=== PATIENT | male | born 1955 | race Caucasian/White ===

== ENCOUNTER 2017-06-11 22:54 | Inpatient (IN) | payer SELFPAY ==
[2017-06-11] MEDS ORDERED: NORMAL SALINE 1000 ML 1,000 ML IV ONE (23:06)
[2017-06-11] MEDS ORDERED: METOCLOPRAMIDE HCL INJ/PF 10 MG/2 ML SDV IV ONE (23:07)
[2017-06-11] MEDS ORDERED: DIPHENHYDRAMINE HCL 50 MG/ML VIAL IV ONE (23:07)
--- NOTE | 2017-06-11 23:16 | ER Document Report ---
ED GI/ - General Stated Complaint: NAUSEA Time Seen by Provider: 06/11/17 22:59 Notes: Patient is a 61-year-old male comes emergency department for chief complaint of vomiting and chills. He states that he is also out of his Lantus for type 2 diabetes (been out for 2 weeks). He comes by EMS, he states he has vomited about 20 times. He is unsure if he vomited blood, he states he drank red Thierry- Aid and he is not sure if he threw up that or blood. He denies any particular area of abdominal pain, passing out, shortness of breath, chest pain. Past medical history of hypertension, CKD. He denies alcohol recently (reports a very infrequent use), denies smoking, denies recreational drugs. TRAVEL OUTSIDE OF THE [place] IN LAST 30 DAYS: No - Related Data Allergies/Adverse Reactions: acetaminophen [From Percocet] Allergy (Verified 06/12/17 01:00) oxycodone [From Percocet] Allergy (Verified 06/12/17 01:00) Past Medical History - General Information source: Patient - Social History Smoking Status: Never Smoker Frequency of alcohol use: None Drug Abuse: None Lives with: Family Family History: Reviewed & Not Pertinent Endocrine Medical History: Reports: Hx Diabetes Mellitus Type 2 - Immunizations Hx Diphtheria, Pertussis, Tetanus Vaccination: Yes Review of Systems - Review of Systems Constitutional: No symptoms reported EENT: No symptoms reported Cardiovascular: No symptoms reported Respiratory: No symptoms reported Gastrointestinal: See HPI Genitourinary: No symptoms reported Male Genitourinary: No symptoms reported Musculoskeletal: No symptoms reported Skin: No symptoms reported Hematologic/Lymphatic: No symptoms reported Neurological/Psychological: No symptoms reported Physical Exam - Vital signs Vitals: Resp Pulse Ox 26 H 98 06/11/17 23:17 06/11/17 23:17 - General General appearance: Other - Patient pale, sunken eyes, appears uncomfortable, mild tachypnea In distress: None - HEENT Head: Normocephalic, Atraumatic Eyes: Normal Extraocular movements intact: Yes Eyelashes: Normal Pupils: PERRL Sinus: Normal Nasal: Normal Mouth/Lips: Normal Mucous membranes: Dry Pharynx: Erythema. No: Exudate, Uvular edema, Potential airway comprom. Neck: Normal - Respiratory Respiratory status: Tachypnea. No: Respiratory distress, Labored Breath sounds: Normal. No: Decreased air movement, Wheezing - Cardiovascular Rhythm: Regular. No: Tachycardia Heart sounds: Normal auscultation, S1 appreciated, S2 appreciated Murmur: No Normal capillary refill: Yes - Abdominal Tenderness: Tender - Mild generalized tenderness - Back Back: Normal, Nontender. No: Tender - Extremities General upper extremity: Normal inspection, Nontender, Normal strength, Normal temperature General lower extremity: Normal inspection, Nontender, Normal strength, Normal temperature. No: Edema - Neurological Neuro grossly intact: Yes Cognition: Normal Orientation: AAOx4 [place] Coma Scale Eye Opening: Spontaneous Kathy Coma Scale Verbal: Oriented [place] Coma Scale Motor: Obeys Commands Kathy Coma Scale Total: 15 Speech: Normal Motor strength normal: LUE, RUE, LLE, RLE Sensory: Normal - Skin Skin Temperature: Warm Skin Moisture: Dry Skin Color: Pale Course - Re-evaluation Re-evalutation: Patient ill in appearance but he is not tachycardic or toxic in appearance. He has generalized abdominal tenderness, denies chest pain, denies shortness of breath. I asked what if she saw his vomit, she states she did, she states she does not think there was blood in it but it was reddish from the Thierry-Aid. I did perform a rectal examination and this was negative for blood and also negative on stool Hemoccult. CBC shows mild leukocytosis, nonspecific with vomiting. Chemistry shows low bicarbonate at 13, anion gap is significantly elevated at 28, blood glucose is 350. Venous blood gas borderline with a pH of 7.3, bicarbonate is again low. Urinalysis shows 80 ketones, elevated specific gravity. Patient states he still feels sick when I reevaluated him although he has not vomited again. Giving IV fluid rehydration. Discussed with Dr. De Paz because of elevated anion gap he does recommend IV insulin drip and admission to close the gap. 06/12/17 01:[address] Adams, will add troponin and EKG to evaluation. EKG with no T-wave inversions or ST segment changes in consecutive leads. Troponin is negative, patient will be admitted to telemetry full admission. Family and patient state understanding and agreement. - Vital Signs Vital signs: Temp Pulse Resp BP Pulse Ox 97.7 F 68 21 H 128/61 H 97 06/11/17 23:24 06/11/17 23:24 06/12/17 05:31 06/12/17 05:31 06/12/17 05:31 - Laboratory Result Diagrams: 06/11/17 23:15 06/11/17 23:15 Laboratory results interpreted by me: 06/11/17 06/11/17 06/11/17 23:03 23:15 23:15 WBC 13.2 H Seg Neutrophils % 85.7 H Lymphocytes % 10.4 L Monocytes % 2.7 L Absolute Neutrophils 11.3 H VBG pCO2 VBG HCO3 Sodium 134.3 L Chloride 93 L Carbon Dioxide 13 L Anion Gap 28 H Glucose 369 H POC Glucose 350 H Hemoglobin A1c % Calcium 10.6 H Urine Protein Urine Glucose (UA) Urine Ketones Urine Blood 06/11/17 06/12/17 06/12/17 23:15 00:50 00:50 WBC Seg Neutrophils % Lymphocytes % Monocytes % Absolute Neutrophils VBG pCO2 23.1 L VBG HCO3 11.1 L Sodium Chloride Carbon Dioxide Anion Gap Glucose POC Glucose Hemoglobin A1c % 12.8 H Calcium Urine Protein >=500 H Urine Glucose (UA) >=500 H Urine Ketones 80 H Urine Blood SMALL H 06/12/17 02:12 WBC Seg Neutrophils % Lymphocytes % Monocytes % Absolute Neutrophils VBG pCO2 VBG HCO3 Sodium Chloride Carbon Dioxide Anion Gap Glucose POC Glucose 297 H Hemoglobin A1c % Calcium Urine Protein Urine Glucose (UA) Urine Ketones Urine Blood Discharge - Discharge Clinical Impression: Hyperglycemia, Metabolic acidosis Vomiting Qualifiers: Vomiting type: unspecified Vomiting Intractability: non-intractable Nausea presence: with nausea Qualified Code(s): R11.2 - Nausea with vomiting, unspecified Condition: Stable Disposition: ADMITTED INPATIENT Admitting Provider: Hospitalist Unit Admitted: Telemetry
[2017-06-11 23:30] LABS: ABSOLUTE BASOPHILS # (AUTO) 0.1 10^3/uL (0.0-0.2); ABSOLUTE LYMPHOCYTES (AUTO) 1.4 10^3/uL (0.5-4.7); ABSOLUTE MONOCYTES (AUTO) 0.4 10^3/uL (0.1-1.4); ABSOLUTE NEUT (AUTO) 11.3 10^3/uL (1.7-8.2); EOSINOPHILS % (AUTO) 0.2 % (0-6); HEMATOCRIT 48.4 % (37.9-51.0); LYMPHOCYTES % (AUTO) 10.4 % (13-45); MEAN CORPUSCULAR HEMOGLOBIN 32.1 pg (27.0-33.4); MEAN CORPUSCULAR VOLUME 92 fl (80-97); MONOCYTES % (AUTO) 2.7 % (3-13); PLATELET COUNT 345 10^3/uL (150-450); RED BLOOD COUNT 5.27 10^6/uL (4.35-5.55); RED CELL DISTRIBUTION WIDTH 12.4 % (11.5-14.0); SEGMENTED NEUTROPHILS % (AUTO) 85.7 % (42-78); TOTAL CELLS COUNTED % (AUTO) 100 %; WHITE BLOOD COUNT 13.2 10^3/uL (4.0-10.5)
[2017-06-11 23:42] LABS: ALANINE AMINOTRANSFERASE 30 U/L (21-72); ALBUMIN 4.7 g/dL (3.5-5.0); ALKALINE PHOSPHATASE 102 U/L (38-126); ASPARTATE AMINO TRANSFERASE 18 U/L (17-59); BILIRUBIN,DIRECT 0.4 mg/dL (0.0-0.4); BILIRUBIN,TOTAL 0.8 mg/dL (0.2-1.3); BLOOD UREA NITROGEN 15 mg/dL (7-20); CALCIUM 10.6 mg/dL (8.4-10.2); CHLORIDE 93 mmol/L (98-107); GLUCOSE 369 mg/dL (75-110); LIPASE 85.2 U/L (23-300); POTASSIUM 4.3 mmol/L (3.6-5.0); TOTAL PROTEIN 7.4 g/dL (6.3-8.2)
[2017-06-11 23:48] LABS: ANION GAP 28 (5-19); CARBON DIOXIDE 13 mmol/L (22-30); SODIUM 134.3 mmol/L (137-145)
[2017-06-12] MEDS ORDERED: NORMAL SALINE 1000 ML 1,000 ML IV ONE (00:41)
[2017-06-12 01:09] LABS: VENOUS BLOOD HCO3 11.1 mmol/L (20-32); VENOUS BLOOD PCO2 23.1 mmHg (35-63); VENOUS BLOOD PH 7.3 (7.30-7.42)
[2017-06-12 01:13] LABS: APPEARANCE,URINE CLEAR; BILIRUBIN,URINE NEGATIVE (NEGATIVE); COLOR,URINE STRAW; GLUCOSE, URINE >=500 mg/dL (NEGATIVE); KETONES,URINE 80 mg/dL (NEGATIVE); LEUKOCYTE ESTERASE,URINE NEGATIVE (NEGATIVE); NITRITE,URINE NEGATIVE (NEGATIVE); PROTEIN,URINE >=500 mg/dL (NEGATIVE); URINE SPECIFIC GRAVITY 1.023; UROBILINOGEN,URINE NEGATIVE mg/dL (<2.0)
[2017-06-12] MEDS ORDERED: NORMAL SALINE 100 ML with INSULIN REGULAR, HUMAN 100 UNIT IV PRN ×2 (01:20)
[2017-06-12] MEDS ORDERED: GLUCAGON,HUMAN RECOMB 1 MG INJ IM PRN ×2 (01:35→13:14)
[2017-06-12] MEDS ORDERED: DEXTROSE 40% GEL 15 GM TUBE PO PRN ×4 (01:35→13:14)
[2017-06-12] MEDS ORDERED: DEXTROSE 50%-WATER 25 GM/50 ML DISP.SYRIN IV PRN ×4 (01:35→13:14)
[2017-06-12] MEDS ORDERED: IPRATROPIUM/ALBUTEROL 0.5-2.5 MG/3 ML AMPUL NEB PRN (01:35)
[2017-06-12] MEDS ORDERED: MAGNESIUM HYDROXIDE SUSP 30 ML UDCUP PO PRN (01:35)
[2017-06-12] MEDS ORDERED: INSULIN REG, HUMAN 100 UNIT/ML 3 ML VIAL (PYX) ONE (02:06)
[2017-06-12] MEDS ORDERED: LORAZEPAM INJ 2 MG/1 ML VIAL ONE (02:07)
[2017-06-12] MEDS ORDERED: LORAZEPAM INJ 2 MG/1 ML VIAL IV ONE (02:08)
[2017-06-12 02:16] LABS: URINE AMPHETAMINES SCREEN NEGATIVE; URINE BARBITURATES SCREEN NEGATIVE; URINE BENZODIAZEPINES SCREEN NEGATIVE; URINE COCAINE SCREEN NEGATIVE; URINE MARIJUANA (THC) SCREEN NEGATIVE; URINE METHADONE SCREEN NEGATIVE; URINE PHENCYCLIDINE SCREEN NEGATIVE
[2017-06-12] MEDS: POTASSI CL 20 MEQ/D5-1/2NS 1L 1,000 ML IV PRN ×2 (02:28→11:22)
--- NOTE | 2017-06-12 02:43 | PDOC H&P ---
History of Present Illness Admission Date/PCP: 06/12/17 02:19 Patient complains of: Abdominal pain nausea vomiting History of Present Illness: KIARRA DELONG SR is a 61 year old male with a past medical history of diabetes, hypertension and dyslipidemia. Patient presents with 2 days of abdominal pain nausea polyuria polydipsia and uncontrolled blood sugar. Patient has been out of insulin for 2 weeks secondary to lack of funds. In the emergency room he is found to have severe metabolic acidosis, he is started on insulin, IV fluids and referred to the hospitalist for admission. Patient denies chest pain palpitations or diaphoresis. Past Medical History Cardiac Medical History: Reports: Hypertension Pulmonary Medical History: Reports: None EENT Medical History: Reports: None Neurological Medical History: Reports: None Endocrine Medical History: Reports: Diabetes Mellitus Type 1 Renal/ Medical History: Reports: None Malignancy Medical History: Reports: None GI Medical History: Reports: None Musculoskeltal Medical History: Reports: Arthritis Skin Medical History: Reports: None Psychiatric Medical History: Reports: None Traumatic Medical History: Reports: None Hematology: Reports: None Infectious Medical History: Reports: None Past Surgical History Past Surgical History: Reports: None Social History Information Source: Patient Lives with: Spouse/Significant other Smoking Status: Current Every Day Smoker Frequency of Alcohol Use: None Drugs: None - Advance Directive Resuscitation Status: Full Code Family History Family History: DM, Hypertension Parental Family History Reviewed: Yes Children Family History Reviewed: Yes Sibling(s) Family History Reviewed.: Yes Medication/Allergy Allergies/Adverse Reactions: acetaminophen [From Percocet] Allergy (Verified 06/12/17 01:00) oxycodone [From Percocet] Allergy (Verified 06/12/17 01:00) Review of Systems Constitutional: PRESENT: as per HPI, anorexia, fatigue, weakness, weight loss Eyes: ABSENT: visual disturbances Ears: ABSENT: hearing changes Cardiovascular: ABSENT: chest pain, dyspnea on exertion, edema, orthropnea, palpitations Respiratory: ABSENT: cough, hemoptysis Gastrointestinal: PRESENT: heartburn, nausea, vomiting. ABSENT: abdominal pain , constipation, diarrhea, hematemesis, hematochezia Genitourinary: PRESENT: other - Polyuria Musculoskeletal: ABSENT: joint swelling Integumentary: ABSENT: rash, wounds Neurological: ABSENT: abnormal gait, abnormal speech, confusion, dizziness, focal weakness, syncope Psychiatric: ABSENT: anxiety, depression, homidical ideation, suicidal ideation Endocrine: PRESENT: as per HPI, polydipsia, polyphagia, polyuria. ABSENT: cold intolerance, flushing, heat intolerance, menstrual abnormalities Hematologic/Lymphatic: ABSENT: easy bleeding, easy bruising Physical Exam Vital Signs: Temp Pulse Resp BP Pulse Ox 97.7 F 68 23 H 172/78 H 99 06/11/17 23:24 06/11/17 23:24 06/12/17 01:31 06/12/17 01:31 06/12/17 01:31 General appearance: PRESENT: cooperative, disheveled, severe distress, thin Head exam: PRESENT: atraumatic, normocephalic Eye exam: PRESENT: conjunctiva pink, EOMI, PERRLA. ABSENT: scleral icterus Ear exam: PRESENT: normal external ear exam Mouth exam: PRESENT: dry mucosa, neck supple. ABSENT: laceration, moist Neck exam: ABSENT: carotid bruit, JVD, lymphadenopathy, thyromegaly Respiratory exam: PRESENT: accessory muscle use, clear to auscultation matthew, tachypnea. ABSENT: rales, rhonchi, wheezes Cardiovascular exam: PRESENT: tachycardia. ABSENT: diastolic murmur, rubs, systolic murmur Pulses: PRESENT: normal dorsalis pedis pul Vascular exam: PRESENT: normal capillary refill GI/Abdominal exam: PRESENT: normal bowel sounds, soft. ABSENT: distended, guarding, mass, organolmegaly, rebound, tenderness Rectal exam: PRESENT: deferred Extremities exam: PRESENT: full ROM. ABSENT: calf tenderness, clubbing, pedal edema Neurological exam: PRESENT: alert, awake, oriented to person, oriented to place , oriented to time, oriented to situation, CN II-XII grossly intact. ABSENT: motor sensory deficit Psychiatric exam: PRESENT: appropriate affect, normal mood. ABSENT: homicidal ideation, suicidal ideation Skin exam: PRESENT: dry, intact, warm. ABSENT: cyanosis, rash Assessment & Plan - Diagnosis (1) Diabetic ketoacidosis Is this a current diagnosis for this admission?: Yes Plan: Diabetic ketoacidosis patient has had some degree of polyuria polydipsia with nausea and uncontrolled hyperglycemia with supporting labs. Patient will receive IV fluids IV insulin serial chemistries every 6 hours for evaluation for electrolyte repletion. Continued evaluation for underlying cause if not found Patient will require diabetic education and consideration of mental health evaluation. (2) Nausea and vomiting Is this a current diagnosis for this admission?: Yes Plan: Symptomatic management and correction #1 - Time Time Spent: 50 to 70 Minutes - Inpatient Certification Medical Necessity: Need Close Monitoring Due to Risk of Patient Decompensation
[2017-06-12] MEDS: HEPARIN SOD (PORCINE) 5,000 UNIT/ML 1 ML SYRINGE SUBCUT SCH ×3 (05:47→22:27)
--- NOTE | 2017-06-12 08:07 | EKG REPORT ---
SEVERITY:- BORDERLINE ECG - SINUS RHYTHM BORDERLINE RIGHT AXIS DEVIATION BORDERLINE PROLONGED QT INTERVAL : Confirmed by: Rio Glasgow MD 12-Jun-2017 08:06:58
[2017-06-12 08:51] LABS: HEMATOCRIT 45.9 % (37.9-51.0); HEMOGLOBIN 15.9 g/dL (13.5-17.0); MEAN CORPUSCULAR HEMOGLOBIN 31.5 pg (27.0-33.4); MEAN CORPUSCULAR HGB CONC 34.5 g/dL (32.0-36.0); MEAN CORPUSCULAR VOLUME 91 fl (80-97); PLATELET COUNT 327 10^3/uL (150-450); RED BLOOD COUNT 5.03 10^6/uL (4.35-5.55); RED CELL DISTRIBUTION WIDTH 12.8 % (11.5-14.0); WHITE BLOOD COUNT 16.1 10^3/uL (4.0-10.5)
[2017-06-12 09:10] LABS: ALBUMIN 3.7 g/dL (3.5-5.0); ANION GAP 15 (5-19); BLOOD UREA NITROGEN 12 mg/dL (7-20); CALCIUM 9.2 mg/dL (8.4-10.2); CARBON DIOXIDE 14 mmol/L (22-30); CHLORIDE 110 mmol/L (98-107); GLUCOSE 148 mg/dL (75-110); PHOSPHORUS 2.3 mg/dL (2.5-4.5); POTASSIUM 4.6 mmol/L (3.6-5.0); SODIUM 139.3 mmol/L (137-145)
[2017-06-12] MEDS: DOCUSATE SODIUM 100 MG CAPSULE PO SCH ×2 (10:54→18:58)
[2017-06-12] MEDS ORDERED: ONDANSETRON HCL INJ/PF 4 MG/2 ML SDV IV ONE (12:40)
[2017-06-12] MEDS ORDERED: INSULIN GLARGINE,HUM.REC.ANLOG 1,000 UNIT/10 ML UNIT SUBCUT ONE (13:00)
[2017-06-12 13:17] LABS: ANION GAP 19 (5-19); BLOOD UREA NITROGEN 13 mg/dL (7-20); CALCIUM 9.4 mg/dL (8.4-10.2); CARBON DIOXIDE 16 mmol/L (22-30); CHLORIDE 105 mmol/L (98-107); GLUCOSE 175 mg/dL (75-110); POTASSIUM 4.6 mmol/L (3.6-5.0); SODIUM 139.9 mmol/L (137-145)
[2017-06-12] MEDS: INSULIN LISPRO 100 UNIT/ML 3 ML VIAL SUBCUT PRN ×2 (13:49→19:26)
[2017-06-12 19:08] LABS: ANION GAP 18 (5-19); BLOOD UREA NITROGEN 14 mg/dL (7-20); CALCIUM 9.6 mg/dL (8.4-10.2); CARBON DIOXIDE 16 mmol/L (22-30); CHLORIDE 106 mmol/L (98-107); GLUCOSE 213 mg/dL (75-110); POTASSIUM 5.2 mmol/L (3.6-5.0); SODIUM 139.5 mmol/L (137-145)
[2017-06-12] MEDS: ONDANSETRON HCL INJ/PF 4 MG/2 ML SDV IV PRN (19:26)
[2017-06-12] MEDS ORDERED: INSULIN GLARGINE,HUM.REC.ANLOG 1,000 UNIT/10 ML UNIT SUBCUT SCH (22:00)
--- NOTE | 2017-06-12 23:08 | PDOC PROGRESS REPORT ---
Subjective Progress Note for:: 06/12/17 Subjective:: 61 year old male with a past medical history of diabetes, hypertension and dyslipidemia. Patient presents with 2 days of abdominal pain nausea polyuria polydipsia and uncontrolled blood sugar. He described running out of insulin 2 weeks ago. Patient was placed on an insulin drip protocol. The insulin drip was discontinued in the ED, and subq lantus was given. Patient was placed on a sliding scale and admitted. His Anion gap will be monitored, but was close to resolving. Patient was nauseated and vomited just prior to admission. Reason For Visit: DKA, HTN, NAUSEA VOMITING Physical Exam Vital Signs: Temp Pulse Resp BP Pulse Ox 98.6 F 93 16 127/70 H 100 06/12/17 20:54 06/12/17 20:54 06/12/17 20:54 06/12/17 20:54 06/12/17 20:54 Intake & Output 06/11/17 06/12/17 06/13/17 06:59 06:59 06:59 Intake Total 3000 1000 Output Total 1600 450 Balance 1400 550 General appearance: PRESENT: mild distress, thin Head exam: PRESENT: atraumatic, normocephalic Eye exam: PRESENT: EOMI, PERRLA Ear exam: PRESENT: normal external ear exam Mouth exam: PRESENT: moist, neck supple, tongue midline Neck exam: ABSENT: carotid bruit, tenderness, thyromegaly Respiratory exam: ABSENT: accessory muscle use, crackles, rales, rhonchi, unlabored, wheezes Cardiovascular exam: PRESENT: RRR, +S1, +S2. ABSENT: diastolic murmur, systolic murmur Pulses: PRESENT: normal radial pulses, normal dorsalis pedis pul Vascular exam: PRESENT: normal capillary refill. ABSENT: pallor GI/Abdominal exam: PRESENT: normal bowel sounds. ABSENT: diminished bowel sounds, guarding Extremities exam: ABSENT: joint swelling, pedal edema Musculoskeletal exam: ABSENT: ambulatory, full ROM, normal inspection Neurological exam: PRESENT: alert, oriented to person, oriented to place, oriented to time, CN II-XII grossly intact Psychiatric exam: ABSENT: agitated, anxious, manic Focused psych exam: ABSENT: paranoid, pressured speech Skin exam: PRESENT: dry. ABSENT: abrasion, mottled, pallor Results Laboratory Results: 03/16/18 08:38 06/12/17 18:12 06/12/17 06/12/17 06/12/17 06:42 08:38 08:38 WBC 16.1 H RBC 5.03 Hgb 15.9 Hct 45.9 MCV 91 MCH 31.5 MCHC 34.5 RDW 12.8 Plt Count 327 Sodium Cancelled 139.3 Potassium Cancelled 4.6 Chloride Cancelled 110 H Carbon Dioxide Cancelled 14 L Anion Gap Cancelled 15 BUN Cancelled 12 Creatinine Cancelled 0.51 L Est GFR ( Amer) Cancelled > 60 Est GFR (Non-Af Amer) Cancelled > 60 Glucose Cancelled 148 H Calcium Cancelled 9.2 Phosphorus 2.3 L Albumin 3.7 06/12/17 06/12/17 12:00 18:12 WBC RBC Hgb Hct MCV MCH MCHC RDW Plt Count Sodium 139.9 139.5 Potassium 4.6 5.2 H Chloride 105 106 Carbon Dioxide 16 L 16 L Anion Gap 19 18 BUN 13 14 Creatinine 0.56 0.70 Est GFR ( Amer) > 60 > 60 Est GFR (Non-Af Amer) > 60 > 60 Glucose 175 H 213 H Calcium 9.4 9.6 Phosphorus Albumin Assessment & Plan - Plan Summary Plan Summary: 1. DKA anion gap nearly closed. patient transitioned from IV insulin to subq insulin on Lantus plus q6h SSI. consider a cheaper alternative at discharge such as 70/30 insulin. 2. Nausea and vomiting. secondary to problem number 1 iv zofran prn advance his diet as tolerates 3. DVT prophylaxis. SCDs
[2017-06-13 01:01] LABS: ANION GAP 17 (5-19); BLOOD UREA NITROGEN 13 mg/dL (7-20); CALCIUM 9.8 mg/dL (8.4-10.2); CARBON DIOXIDE 17 mmol/L (22-30); CHLORIDE 106 mmol/L (98-107); GLUCOSE 165 mg/dL (75-110); POTASSIUM 5.2 mmol/L (3.6-5.0); SODIUM 140.1 mmol/L (137-145)
[2017-06-13] MEDS: ONDANSETRON HCL INJ/PF 4 MG/2 ML SDV IV PRN ×3 (03:21→21:31)
[2017-06-13 05:27] LABS: ABSOLUTE BASOPHILS # (AUTO) 0.2 10^3/uL (0.0-0.2); ABSOLUTE LYMPHOCYTES (AUTO) 2.3 10^3/uL (0.5-4.7); ABSOLUTE MONOCYTES (AUTO) 0.7 10^3/uL (0.1-1.4); ABSOLUTE NEUT (AUTO) 10.9 10^3/uL (1.7-8.2); BASOPHILS % (AUTO) 1.1 % (0-2); EOSINOPHILS % (AUTO) 0.2 % (0-6); HEMATOCRIT 42.7 % (37.9-51.0); HEMOGLOBIN 14.7 g/dL (13.5-17.0); LYMPHOCYTES % (AUTO) 16.2 % (13-45); MEAN CORPUSCULAR HEMOGLOBIN 31.9 pg (27.0-33.4); MEAN CORPUSCULAR HGB CONC 34.5 g/dL (32.0-36.0); MEAN CORPUSCULAR VOLUME 92 fl (80-97); MONOCYTES % (AUTO) 4.7 % (3-13); PLATELET COUNT 290 10^3/uL (150-450); RED BLOOD COUNT 4.62 10^6/uL (4.35-5.55); RED CELL DISTRIBUTION WIDTH 12.7 % (11.5-14.0); SEGMENTED NEUTROPHILS % (AUTO) 77.8 % (42-78); TOTAL CELLS COUNTED % (AUTO) 100 %
[2017-06-13 05:47] LABS: ALBUMIN 3.5 g/dL (3.5-5.0); ANION GAP 17 (5-19); BLOOD UREA NITROGEN 14 mg/dL (7-20); CALCIUM 9.2 mg/dL (8.4-10.2); CARBON DIOXIDE 14 mmol/L (22-30); CHLORIDE 107 mmol/L (98-107); GLUCOSE 214 mg/dL (75-110); PHOSPHORUS 2.4 mg/dL (2.5-4.5); SODIUM 138.4 mmol/L (137-145)
[2017-06-13] MEDS: HEPARIN SOD (PORCINE) 5,000 UNIT/ML 1 ML SYRINGE SUBCUT SCH ×3 (06:09→21:31)
[2017-06-13 06:16] LABS: POTASSIUM 4.2 mmol/L (3.6-5.0)
[2017-06-13] MEDS: INSULIN LISPRO 100 UNIT/ML 3 ML VIAL SUBCUT PRN ×3 (07:57→21:37)
[2017-06-13] MEDS: RINGERS SOLUTION,LACTATED 1,000 ML IV PRN ×2 (08:03→18:34)
[2017-06-13] MEDS: DOCUSATE SODIUM 100 MG CAPSULE PO SCH ×2 (09:52→18:34)
--- NOTE | 2017-06-13 11:09 | PROGRESS NOTE E ---
Progress Note NAME: KIARRA DELONG : 1955 AGE: 61Y DATE: 06/13/2017 ROOM: 317 SUBJECTIVE: The patient is a pleasant 61-year-old male with past medical history of diabetes, hypertension, dyslipidemia. The patient presented with 2 days of abdominal pain, polyuria, polydipsia and uncontrolled blood sugar. He was found to have DKA and started on insulin drip, which I will continue. Now he is better controlled. The patient complains of abdominal pain. There is no vomiting. OBJECTIVE: VITAL SIGNS: Blood pressure 166/67,temperature 98.2, heart rate 77, saturation 99%. HEENT: Head normocephalic, atraumatic. Pupils round, reactive to light and accommodation bilaterally. Extraocular movements intact. Ears: Tympanic membranes intact bilaterally. No discharge from the ears. No discharge from the nose. NECK: Supple. No increased JVD. No thyromegaly. No lymphadenopathy. CARDIOVASCULAR: Normal S1, S2. Regular rate and rhythm. No murmur. RESPIRATORY: Lungs clear. ABDOMEN: Soft and nontender. MUSCULOSKELETAL: No edema. NEUROLOGIC: Awake, alert. SKIN: No rash. LABORATORY: Sodium 138, potassium 4.2, chloride 107. White blood count 14, hemoglobin 14. ASSESSMENT: 1. DIABETIC KETOACIDOSIS, RESOLVED. Continue Lantus and regular insulin sliding scale. 2. NAUSEA AND VOMITING, improved. 3. DEHYDRATION, resolved. 4. DIABETES MELLITUS, poorly controlled. PLAN: Continue monitoring his blood sugar. Continue Lantus, as well as sliding scale. DISPOSITION: Discharge home tomorrow morning. DICTATING PHYSICIAN: JEREMY GRACE M.D. [id number] PHY#: [id number] ID: [id number] JOB#: [id number] ACCT: [id number] cc: > [facility]
[2017-06-13 12:16] LABS: ANION GAP 15 (5-19); BLOOD UREA NITROGEN 13 mg/dL (7-20); CALCIUM 9.3 mg/dL (8.4-10.2); CARBON DIOXIDE 17 mmol/L (22-30); CHLORIDE 106 mmol/L (98-107); GLUCOSE 162 mg/dL (75-110); POTASSIUM 4.2 mmol/L (3.6-5.0); SODIUM 137.8 mmol/L (137-145)
[2017-06-13] MEDS: MAG HYDROX/AL HYDROX/SIMETH SUSP 30 ML UDCUP PO PRN (18:34)
[2017-06-13] MEDS ORDERED: HYDRALAZINE HCL INJ/PF 20 MG/1 ML SDV IV PRN (20:38)
[2017-06-13] MEDS ORDERED: INSULIN GLARGINE,HUM.REC.ANLOG 300 UNIT/3 ML INSULN.PEN SUBCUT SCH (22:00)
[2017-06-13] MEDS: GABAPENTIN 300 MG CAPSULE PO SCH (22:02)
[2017-06-13] MEDS ORDERED: ASPIRIN 325 MG TABLET ONE (22:57)
[2017-06-13] MEDS ORDERED: LORAZEPAM INJ 2 MG/1 ML VIAL ONE (22:58)
[2017-06-13] MEDS ORDERED: FENTANYL CITRATE INJ/PF 100 MCG/2 ML AMPUL ONE (22:59)
[2017-06-13] MEDS ORDERED: NITROGLYCERIN 0.4 MG/TAB 25 TAB/BOTTLE ONE (23:00)
[2017-06-13] MEDS ORDERED: METOPROLOL TARTRATE PF/INJ 5 MG/5 ML SDV IV ONE ×2 (23:11→23:30)
[2017-06-13] MEDS ORDERED: PHOSPHORUS #1 250 MG TABLET PO ONE (23:30)
[2017-06-13] MEDS ORDERED: ENOXAPARIN SODIUM INJ 80 MG/0.8 ML DISP.SYRIN SUBCUT ONE ×2 (23:30→23:45)
[2017-06-13] MEDS ORDERED: NITROGLYCERIN 0.4 MG/TAB 25 TAB/BOTTLE SL PRN (23:35)
--- NOTE | 2017-06-13 23:54 | EKG REPORT ---
SEVERITY:- ABNORMAL ECG - SINUS RHYTHM PROBABLE ANTEROSEPTAL INFARCT, AGE INDETERM : Confirmed by: Rio Glasgow MD 13-Jun-2017 23:53:24
[2017-06-13 23:58] LABS: CREATINE KINASE MB 0.41 ng/mL (<4.55)
[2017-06-13 23:59] LABS: TROPONIN I < 0.012 ng/mL
[2017-06-14 00:49] LABS: BLOOD UREA NITROGEN 11 mg/dL (7-20); GLUCOSE 192 mg/dL (75-110); POTASSIUM 3.5 mmol/L (3.6-5.0)
[2017-06-14] MEDS ORDERED: METOPROLOL TARTRATE PF/INJ 5 MG/5 ML SDV IV PRN (00:55)
[2017-06-14 00:57] LABS: CHLORIDE 103 mmol/L (98-107)
[2017-06-14 00:58] LABS: CARBON DIOXIDE 14 mmol/L (22-30); SODIUM 139.9 mmol/L (137-145)
[2017-06-14 01:16] LABS: ANION GAP 23 (5-19)
[2017-06-14] MEDS ORDERED: INSULIN REG, HUMAN 100 UNIT/ML 3 ML VIAL (PYX) ONE (01:58)
[2017-06-14] MEDS ORDERED: POTASSI CL 20 MEQ/1/2NS 1L 20 MEQ/1,000 ML RTUINJ IV ONE (02:00)
[2017-06-14] MEDS ORDERED: INSULIN REG, HUMAN 100 UNIT/ML 3 ML VIAL (PYX) IV ONE (02:00)
[2017-06-14] MEDS: POTASSI CL 20 MEQ/50 ML RIDER 20 MEQ/50 ML RTUPB IV SCH ×2 (02:19→03:47)
[2017-06-14] MEDS ORDERED: POTASSI CL 20 MEQ/D5-1/2NS 1L 1,000 ML IV ONE ×2 (03:31→04:00)
[2017-06-14] MEDS ORDERED: INSULIN, REGULAR 100 UNIT/100 ML NORMAL SALINE IV PRN ×2 (03:56)
[2017-06-14] MEDS: GABAPENTIN 300 MG CAPSULE PO SCH ×3 (05:32→21:08)
[2017-06-14 05:55] LABS: ABSOLUTE BASOPHILS # (AUTO) 0.1 10^3/uL (0.0-0.2); ABSOLUTE EOSINOPHILS # (AUTO) 0.1 10^3/uL (0.0-0.6); ABSOLUTE LYMPHOCYTES (AUTO) 2.9 10^3/uL (0.5-4.7); ABSOLUTE MONOCYTES (AUTO) 0.6 10^3/uL (0.1-1.4); ABSOLUTE NEUT (AUTO) 6.6 10^3/uL (1.7-8.2); EOSINOPHILS % (AUTO) 0.7 % (0-6); HEMATOCRIT 39.4 % (37.9-51.0); HEMOGLOBIN 13.7 g/dL (13.5-17.0); LYMPHOCYTES % (AUTO) 28.4 % (13-45); MEAN CORPUSCULAR HEMOGLOBIN 31.8 pg (27.0-33.4); MEAN CORPUSCULAR HGB CONC 34.7 g/dL (32.0-36.0); MEAN CORPUSCULAR VOLUME 92 fl (80-97); MONOCYTES % (AUTO) 5.4 % (3-13); PLATELET COUNT 274 10^3/uL (150-450); RED CELL DISTRIBUTION WIDTH 12.7 % (11.5-14.0); SEGMENTED NEUTROPHILS % (AUTO) 64.5 % (42-78); TOTAL CELLS COUNTED % (AUTO) 100 %; WHITE BLOOD COUNT 10.3 10^3/uL (4.0-10.5)
[2017-06-14] MEDS: MAG HYDROX/AL HYDROX/SIMETH SUSP 30 ML UDCUP PO PRN ×3 (06:35→20:56)
[2017-06-14] MEDS: ONDANSETRON HCL INJ/PF 4 MG/2 ML SDV IV PRN ×2 (06:36→18:08)
[2017-06-14 06:42] LABS: CREATINE KINASE MB 0.25 ng/mL (<4.55)
[2017-06-14 06:44] LABS: TROPONIN I < 0.012 ng/mL
[2017-06-14 06:46] LABS: ANION GAP 10 (5-19); BLOOD UREA NITROGEN 12 mg/dL (7-20); CALCIUM 8.5 mg/dL (8.4-10.2); CARBON DIOXIDE 20 mmol/L (22-30); CHLORIDE 109 mmol/L (98-107); GLUCOSE 126 mg/dL (75-110); POTASSIUM 3.8 mmol/L (3.6-5.0); SODIUM 139.2 mmol/L (137-145)
[2017-06-14 06:47] LABS: ALBUMIN 3.1 g/dL (3.5-5.0); CREATINE KINASE 25 U/L (55-170); PHOSPHORUS 2.4 mg/dL (2.5-4.5)
--- NOTE | 2017-06-14 08:50 | EKG REPORT ---
SEVERITY:- ABNORMAL ECG - SINUS RHYTHM POSSIBLE ATRIAL ARRHYTHMIA, A-RATE 194 SUPRAVENTRICULAR BIGEMINY PROBABLE ANTEROSEPTAL INFARCT, AGE INDETERM : Confirmed by: Rio Glasgow MD 14-Jun-2017 08:50:26
[2017-06-14] MEDS ORDERED: LISINOPRIL 5 MG TABLET PO SCH (10:00)
[2017-06-14] MEDS ORDERED: ENOXAPARIN SODIUM INJ 80 MG/0.8 ML DISP.SYRIN SUBCUT SCH (10:00)
[2017-06-14] MEDS: DOCUSATE SODIUM 100 MG CAPSULE PO SCH ×2 (10:22→18:08)
[2017-06-14 11:54] LABS: TROPONIN I < 0.012 ng/mL
--- NOTE | 2017-06-14 12:44 | PROGRESS NOTE E ---
Progress Note NAME: KIARRA DELONG : 1955 AGE: 61Y DATE: 06/14/2017 ROOM: 317 SUBJECTIVE: The patient is a pleasant 61-year-old male who has a past medical history of diabetes mellitus, admitted with DKA, hypertension, dyslipidemia. His DKA is resolving and he was on insulin drip, which I will discontinue. However, yesterday, he was back to insulin drip because bicarb had dropped to 14, but today, it went up to 20 and his blood sugar is relatively running in 130-200, and dextrose was discontinued as well as, also, insulin drip was discontinued. Now, he is on Lantus and high-dose sliding scale and he is feeling much better and eating and drinking without any nausea or vomiting. OBJECTIVE: GENERAL: The patient is lying in bed, comfortable, not in distress. VITAL SIGNS: Heart rate 81, blood pressure 164/62, saturation is 103. HEENT: Head normocephalic, atraumatic. Pupils round, reactive to light and accommodation bilaterally. Extraocular movements intact. Ears: Tympanic membranes intact bilaterally. No discharge from the ears. No discharge from the nose. NECK: Supple. No increased JVD. No thyromegaly. No lymphadenopathy. CARDIOVASCULAR: Normal S1, S2. Regular rate and rhythm. No murmur. No gallops. RESPIRATORY: Lungs clear. ABDOMEN: Soft and nontender. MUSCULOSKELETAL: No edema. NEUROLOGIC: Awake, alert. SKIN: No rash. DIAGNOSTIC DATA: Labs: Sodium 139, potassium 3.5, chloride 103, carbon dioxide is 20, blood sugar is running between 120-200. Urinalysis was unremarkable. ASSESSMENT: 1. DKA, RESOLVED. 2. DEHYDRATION, WHICH CONTRIBUTED TO DKA, RESOLVED. 3. POORLY-CONTROLLED DIABETES MELLITUS. 4. NAUSEA AND VOMITING, RESOLVED. PLAN: We will increase his Lantus. He is taking Lantus 30 units at bedtime. I will increase it to 35 units, and we are putting him also on high dose of sliding scale. Increase his Lisinopril from 5 mg to 10 mg daily for better control of his blood pressure. I will also add amlodipine 5 mg p.o. daily and monitor his blood pressure. DISPOSITION: Discharge home tomorrow if stable. DICTATING PHYSICIAN: JEREMY GRACE M.D. [id number] PHY#: [id number] ID: [id number] JOB#: [id number] ACCT: [id number] cc: >
[2017-06-14] MEDS: INSULIN LISPRO 100 UNIT/ML 3 ML VIAL SUBCUT PRN ×3 (12:49→21:53)
[2017-06-14] MEDS ORDERED: ASPIRIN 81 MG TABLET, CHEWABLE PO ONE (17:30)
[2017-06-14 17:48] LABS: URINE CREATININE 153.1 mg/dL (22-328)
[2017-06-14 18:00] LABS: UR PRO/CREAT RATIO RESULT 1.9 mg/mg (0.0-0.2); URINE PROTEIN 296.2 mg/dL (<12)
[2017-06-14 18:20] LABS: INTERNATIONAL RATION (INR) 0.87; PROTHROMBIN TIME 12.5 SEC (11.4-15.4)
[2017-06-14 18:23] LABS: CREATINE KINASE 26 U/L (55-170)
[2017-06-14 18:35] LABS: CREATINE KINASE MB 0.27 ng/mL (<4.55)
[2017-06-14 18:36] LABS: TROPONIN I < 0.012 ng/mL
[2017-06-14 18:42] LABS: HEMOGLOBIN 15.1 g/dL (13.5-17.0); MEAN CORPUSCULAR HEMOGLOBIN 31.7 pg (27.0-33.4); MEAN CORPUSCULAR HGB CONC 34.3 g/dL (32.0-36.0); MEAN CORPUSCULAR VOLUME 93 fl (80-97); PLATELET COUNT 274 10^3/uL (150-450); RED BLOOD COUNT 4.75 10^6/uL (4.35-5.55); RED CELL DISTRIBUTION WIDTH 12.6 % (11.5-14.0); WHITE BLOOD COUNT 9.3 10^3/uL (4.0-10.5)
[2017-06-14] MEDS: METOPROLOL TARTRATE 25 MG TABLET PO SCH (21:08)
[2017-06-14] MEDS: ATORVASTATIN CALCIUM 20 MG TABLET PO SCH (21:09)
[2017-06-14] MEDS: ASPIRIN 81 MG TABLET, CHEWABLE PO SCH (21:09)
[2017-06-14] MEDS: INSULIN GLARGINE,HUM.REC.ANLOG 300 UNIT/3 ML INSULN.PEN SUBCUT SCH (21:53)
[2017-06-15 00:41] LABS: CREATINE KINASE MB < 0.22 ng/mL (<4.55); TROPONIN I < 0.012 ng/mL
[2017-06-15] MEDS: ONDANSETRON HCL INJ/PF 4 MG/2 ML SDV IV PRN (03:47)
[2017-06-15 04:21] LABS: BILIRUBIN,URINE NEGATIVE (NEGATIVE); COLOR,URINE YELLOW; GLUCOSE, URINE >=500 mg/dL (NEGATIVE); KETONES,URINE 80 mg/dL (NEGATIVE); LEUKOCYTE ESTERASE,URINE NEGATIVE (NEGATIVE); NITRITE,URINE NEGATIVE (NEGATIVE); PROTEIN,URINE >=500 mg/dL (NEGATIVE); URINE SPECIFIC GRAVITY 1.028; UROBILINOGEN,URINE NEGATIVE mg/dL (<2.0)
[2017-06-15 04:24] LABS: APPEARANCE,URINE CLEAR
[2017-06-15 05:32] LABS: HEMATOCRIT 43.2 % (37.9-51.0); MEAN CORPUSCULAR HEMOGLOBIN 32.1 pg (27.0-33.4); MEAN CORPUSCULAR HGB CONC 34.8 g/dL (32.0-36.0); MEAN CORPUSCULAR VOLUME 92 fl (80-97); PLATELET COUNT 265 10^3/uL (150-450); RED BLOOD COUNT 4.68 10^6/uL (4.35-5.55); RED CELL DISTRIBUTION WIDTH 12.7 % (11.5-14.0)
[2017-06-15 05:50] LABS: ALBUMIN 3.3 g/dL (3.5-5.0); ANION GAP 11 (5-19); BLOOD UREA NITROGEN 10 mg/dL (7-20); CALCIUM 8.9 mg/dL (8.4-10.2); CARBON DIOXIDE 27 mmol/L (22-30); CHLORIDE 100 mmol/L (98-107); CREATINE KINASE 24 U/L (55-170); GLUCOSE 128 mg/dL (75-110); PHOSPHORUS 2.5 mg/dL (2.5-4.5); POTASSIUM 3.4 mmol/L (3.6-5.0); SODIUM 137.6 mmol/L (137-145)
[2017-06-15 05:57] LABS: CREATINE KINASE MB < 0.22 ng/mL (<4.55)
[2017-06-15 05:58] LABS: TROPONIN I < 0.012 ng/mL
[2017-06-15] MEDS: MAG HYDROX/AL HYDROX/SIMETH SUSP 30 ML UDCUP PO PRN (07:32)
[2017-06-15] MEDS: GABAPENTIN 300 MG CAPSULE PO SCH ×3 (07:32→21:14)
[2017-06-15] MEDS: AMLODIPINE BESYLATE 5 MG TABLET PO SCH (09:21)
[2017-06-15] MEDS: DOCUSATE SODIUM 100 MG CAPSULE PO SCH ×2 (09:21→17:07)
[2017-06-15] MEDS: LISINOPRIL 5 MG TABLET PO SCH (09:21)
[2017-06-15] MEDS: METOPROLOL TARTRATE 25 MG TABLET PO SCH ×2 (09:22→21:14)
[2017-06-15] MEDS: ENOXAPARIN SODIUM INJ 40 MG/0.4 ML DISP.SYRIN SUBCUT SCH (09:22)
[2017-06-15] MEDS: INSULIN LISPRO 100 UNIT/ML 3 ML VIAL SUBCUT PRN ×3 (12:29→21:34)
--- NOTE | 2017-06-15 16:18 | PDOC PROGRESS REPORT ---
Subjective Progress Note for:: 06/15/17 Subjective:: KIARRA DELONG is a 61-year-old male admitted with DKA. Past medical history includes diabetes, hypertension and dyslipidemia. Transitioned from insulin drip to Lantus and sliding scale insulin 06/14/2017. Blood glucose has been well controlled for 24+ hrs. According to nursing staff, on 06/13/2017 the patient experienced an episode of midsternal chest pain. EKG showed T-wave inversion in septal leads, and new supraventricular bigeminy. Cardiology was consulted today. Echocardiogram ordered. Stress test to be completed tomorrow. Patient seen this morning on rounds. Complains of headache, but denies chest pain or shortness of breath. Patient expresses concerns about his ability to afford his insulin once he is discharged from the hospital. Reason For Visit: DKA, HTN, NAUSEA VOMITING Physical Exam Vital Signs: Temp Pulse Resp BP Pulse Ox 98.9 F 73 18 148/61 H 99 06/15/17 11:48 06/15/17 14:00 06/15/17 11:48 06/15/17 11:48 06/15/17 11:48 Intake & Output 06/14/17 06/15/17 06/16/17 06:59 06:59 06:59 Intake Total 1646 1470 Output Total 400 600 Balance 1246 870 Weight 84.3 kg 83.6 kg General appearance: PRESENT: no acute distress Head exam: PRESENT: atraumatic Eye exam: PRESENT: conjunctiva pink Mouth exam: PRESENT: moist Teeth exam: PRESENT: poor dentation Neck exam: PRESENT: full ROM Respiratory exam: PRESENT: clear to auscultation matthew, symmetrical, unlabored Cardiovascular exam: PRESENT: irregular rhythm, +S1, +S2 Pulses: PRESENT: normal radial pulses, normal dorsalis pedis pul GI/Abdominal exam: PRESENT: normal bowel sounds, soft Rectal exam: PRESENT: deferred Extremities exam: PRESENT: full ROM Musculoskeletal exam: PRESENT: full ROM Neurological exam: PRESENT: alert, awake, oriented to person, oriented to place , oriented to time, oriented to situation Psychiatric exam: PRESENT: appropriate affect Results Laboratory Results: 06/15/17 04:55 06/15/17 04:55 06/14/17 06/14/17 06/14/17 17:52 17:52 18:33 WBC Cancelled 9.3 RBC Cancelled 4.75 Hgb Cancelled 15.1 Hct Cancelled 44.0 MCV Cancelled 93 MCH Cancelled 31.7 MCHC Cancelled 34.3 RDW Cancelled 12.6 Plt Count Cancelled 274 Sodium Potassium Chloride Carbon Dioxide Anion Gap BUN Creatinine 0.55 Est GFR ( Amer) > 60 Est GFR (Non-Af Amer) > 60 Glucose Calcium Phosphorus Magnesium Albumin Urine Color Urine Appearance Urine pH Ur Specific [place] Urine Protein Urine Glucose (UA) Urine Ketones Urine Blood Urine Nitrite Ur Leukocyte Esterase Urine WBC (Auto) Urine RBC (Auto) 06/15/17 06/15/17 06/15/17 03:40 04:55 04:55 WBC 8.0 RBC 4.68 Hgb 15.0 Hct 43.2 MCV 92 MCH 32.1 MCHC 34.8 RDW 12.7 Plt Count 265 Sodium 137.6 Potassium 3.4 L Chloride 100 Carbon Dioxide 27 Anion Gap 11 BUN 10 Creatinine 0.55 Est GFR ( Amer) > 60 Est GFR (Non-Af Amer) > 60 Glucose 128 H Calcium 8.9 Phosphorus 2.5 Magnesium 2.0 Albumin 3.3 L Urine Color YELLOW Urine Appearance CLEAR Urine pH 6.0 Ur Specific [place] 1.028 Urine Protein >=500 H Urine Glucose (UA) >=500 H Urine Ketones 80 H Urine Blood NEGATIVE Urine Nitrite NEGATIVE Ur Leukocyte Esterase NEGATIVE Urine WBC (Auto) 1 Urine RBC (Auto) 1 06/13/17 06/13/17 06/14/17 23:17 23:17 04:51 Creatine Kinase 36 L 25 L CK-MB (CK-2) 0.41 Troponin I < 0.012 06/14/17 06/14/17 06/14/17 04:51 11:02 11:02 Creatine Kinase 26 L CK-MB (CK-2) 0.25 0.30 Troponin I < 0.012 < 0.012 06/14/17 06/14/17 06/14/17 17:52 17:52 23:51 Creatine Kinase 26 L 23 L CK-MB (CK-2) 0.27 Troponin I < 0.012 06/14/17 06/15/17 06/15/17 23:51 04:55 04:55 Creatine Kinase 24 L CK-MB (CK-2) < 0.22 < 0.22 Troponin I < 0.012 < 0.012 Status: Imported from PACS Assessment & Plan - Diagnosis (1) Diabetic ketoacidosis Qualifiers: Diabetes mellitus type: type 2 Diabetes mellitus complication detail: without coma Qualified Code(s): E11.10 - Type 2 diabetes mellitus with ketoacidosis without coma Is this a current diagnosis for this admission?: Yes Plan: Resolved. Anion gap closed. Patient currently on Lantus 35u daily and high- dose sliding scale insulin. Blood glucose has been fairly well controlled for the last 24 hours. Patient states that he was noncompliant with his insulin because he cannot afford to pay out of pocket. He previously was covered under Medicaid but for some unknown reason was dropped from his coverage. Patient reports that he will often take less Lantus than needed in order to stretch out the amount of insulin he has available. Appreciate discharge planning recommendations to assist with getting home Lantus and Humalog. (2) Chest pain Qualifiers: Chest pain type: unspecified Qualified Code(s): R07.9 - Chest pain, unspecified Is this a current diagnosis for this admission?: Yes Plan: On June 13 the patient experienced an episode of midsternal chest pain. EKG showed inverted T waves in the septal leads, no evidence of acute infarction. New supraventricular bigeminy, patient noted to still be in this rhythm this morning. serial cardiac enzymes all negative. Cardiology was consulted today. Echocardiogram ordered. Stress test to be completed tomorrow. (3) Nausea and vomiting Qualifiers: Vomiting type: unspecified Vomiting Intractability: non-intractable Qualified Code(s): R11.2 - Nausea with vomiting, unspecified Is this a current diagnosis for this admission?: Yes Plan: Resolved. Patient able to tolerate p.o. diet and take his p.o. medications. Continue Zofran PRN - Time Time Spent with patient: 15-24 minutes Medications reviewed and adjusted accordingly: Yes Anticipated discharge: Home - Inpatient Certification Based on my medical assessment, after consideration of the patient's comorbidities, presenting symptoms, or acuity I expect that the services needed warrant INPATIENT care.: Yes I certify that my determination is in accordance with my understanding of Medicare's requirements for reasonable and necessary INPATIENT services [42 CFR 412.3e].: Yes Medical Necessity: Risk of Complication if Not Cared For in Hospital - Plan Summary Plan Summary: Plan to discharge home
[2017-06-15] MEDS: IBUPROFEN 600 MG TABLET PO PRN (17:07)
--- NOTE | 2017-06-15 19:17 | XCELERA REPORT ---
[address] [address] Transthoracic Echocardiogram Report Name: NISHI DELONGEnrique Irizarry Age: 61 yrs Gender: Male : 1955 Patient Status: Inpatient Patient Location: [address] [place], [place] [address] Study Date: 06/15/2017 02:54 PM Height: 72 in Weight: 184 lb BSA: 2.1 m2 Procedure: A complete two-dimensional transthoracic echocardiogram was performed (2D, M-mode, spectral and color flow Doppler). The study was technically adequate with some images being suboptimal in quality. Reason For Study: chest pain. new ekg changes Ordering Physician: GELY PITTS Performed By: Ashli Alicea Interpretation Summary The left ventricular ejection fraction is normal. There is borderline concentric left ventricular hypertrophy. The left ventricle is grossly normal size. Doppler measurements suggest pseudonormalized left ventricular relaxation, which is associated with grade II/IV or mild to moderate diastolic dysfunction Wall motion cannot be accurately commented on, but no definite regional wall motion abnormalities noted. The right ventricle is mildly dilated. The right atrium is normal. The left atrial size is normal. There is a mild amount of mitral regurgitation There is no mitral valve stenosis. There is no aortic valve stenosis No aortic regurgitation is present. There is a trace or physiologic amount of tricuspid regurgitation Tricuspid regurgitation jet envelope not well defined to measure RV systolic pressure accurately. The aortic root is not well visualized but is probably normal size. The inferior vena cava appeared normal and decreased > 50% with respiration (RAP 5-10 mmHg) There is no pericardial effusion. MMode/2D Measurements & Calculations RVDd: 3.2 cm LVIDd: 4.6 cm FS: 48.2 % Ao root diam: 3.2 cm IVSd: 0.91 cm LVIDs: 2.4 cm EDV(Teich): 98.4 ml LVPWd: 0.96 cm ESV(Teich): 20.0 ml Ao root area: 8.0 cm2 EF(Teich): 79.7 % LA dimension: 3.3 cm Doppler Measurements & Calculations MV E max wilmer: MV P1/2t max wilmer: Ao V2 max: LV V1 max P.8 cm/sec 89.8 cm/sec 133.6 cm/sec 5.9 mmHg MV A max wilmer: MV P1/2t: 98.1 msec Ao max PG: LV V1 max: 126.4 cm/sec 7.1 mmHg 121.4 cm/sec MV E/A: 0.71 MVA(P1/2t): 2.2 cm2 MV dec slope: 268.3 cm/sec2 MV dec time: 0.34 sec PA V2 max: PI end-d wilmer: TR max wilmer: 93.3 cm/sec 104.8 cm/sec 232.4 cm/sec PA max PG: TR max P.5 mmHg 21.6 mmHg Left Ventricle The left ventricle is grossly normal size. There is borderline concentric left ventricular hypertrophy. The left ventricular ejection fraction is normal. Doppler measurements suggest pseudonormalized left ventricular relaxation, which is associated with grade II/IV or mild to moderate diastolic dysfunction. Wall motion cannot be accurately commented on, but no definite regional wall motion abnormalities noted. Right Ventricle The right ventricle is mildly dilated. There is normal right ventricular wall thickness. The right ventricular systolic function is normal. Atria The right atrium is normal. The left atrial size is normal. Interarterial septum not well visualized and not well dopplered. Cannot comment on ASD/PFO presence. Mitral Valve The mitral valve leaflets are sclerotic, but show no functional abnormalities. There is no mitral valve stenosis. There is a mild amount of mitral regurgitation. Aortic Valve The aortic valve is mildly calcified. The aortic valve is trileaflet. There is no aortic valve stenosis. No aortic regurgitation is present. Tricuspid Valve The tricuspid valve is not well visualized, but is grossly normal. There is no tricuspid stenosis. There is a trace or physiologic amount of tricuspid regurgitation. Tricuspid regurgitation jet envelope not well defined to measure RV systolic pressure accurately. Pulmonic Valve The pulmonic valve is not well visualized. Great Vessels The aortic root is not well visualized but is probably normal size. The inferior vena cava appeared normal and decreased > 50% with respiration (RAP 5-10 mmHg). Effusions There is no pericardial effusion. : GELY PITTS > Ute Tyson
[2017-06-15] MEDS: ASPIRIN 81 MG TABLET, CHEWABLE PO SCH (21:13)
[2017-06-15] MEDS: ATORVASTATIN CALCIUM 20 MG TABLET PO SCH (21:14)
[2017-06-15] MEDS: INSULIN GLARGINE,HUM.REC.ANLOG 300 UNIT/3 ML INSULN.PEN SUBCUT SCH (21:35)
[2017-06-16] MEDS: ONDANSETRON HCL INJ/PF 4 MG/2 ML SDV IV PRN (03:41)
[2017-06-16 05:04] LABS: APPEARANCE,URINE CLEAR; BILIRUBIN,URINE NEGATIVE (NEGATIVE); COLOR,URINE YELLOW; GLUCOSE, URINE >=500 mg/dL (NEGATIVE); KETONES,URINE 80 mg/dL (NEGATIVE); LEUKOCYTE ESTERASE,URINE NEGATIVE (NEGATIVE); NITRITE,URINE NEGATIVE (NEGATIVE); PROTEIN,URINE >=500 mg/dL (NEGATIVE); URINE SPECIFIC GRAVITY 1.029; UROBILINOGEN,URINE NEGATIVE mg/dL (<2.0)
[2017-06-16] MEDS: GABAPENTIN 300 MG CAPSULE PO SCH ×2 (05:16→13:07)
[2017-06-16 09:11] LABS: ANION GAP 9 (5-19); BLOOD UREA NITROGEN 11 mg/dL (7-20); CALCIUM 8.7 mg/dL (8.4-10.2); CARBON DIOXIDE 32 mmol/L (22-30); CHLORIDE 97 mmol/L (98-107); GLUCOSE 132 mg/dL (75-110); PHOSPHORUS 2.7 mg/dL (2.5-4.5); SODIUM 137.6 mmol/L (137-145)
[2017-06-16] MEDS ORDERED: POTASSI CL 20 MEQ/50 ML RIDER 20 MEQ/50 ML RTUPB IV ONE (09:21)
[2017-06-16] MEDS ORDERED: POTASSIUM CHLORIDE 10 MEQ TABLET.SA PO ONE (09:22)
--- NOTE | 2017-06-16 09:33 | EKG REPORT ---
SEVERITY:- OTHERWISE NORMAL ECG - SINUS RHYTHM VENTRICULAR PREMATURE COMPLEX BORDERLINE RIGHT AXIS DEVIATION : Confirmed by: Ute Tyson 16-Jun-2017 09:32:19
[2017-06-16] MEDS: METOPROLOL TARTRATE 25 MG TABLET PO SCH (10:55)
[2017-06-16] MEDS: ENOXAPARIN SODIUM INJ 40 MG/0.4 ML DISP.SYRIN SUBCUT SCH (10:55)
[2017-06-16] MEDS: DOCUSATE SODIUM 100 MG CAPSULE PO SCH ×2 (10:55→17:35)
[2017-06-16] MEDS: AMLODIPINE BESYLATE 5 MG TABLET PO SCH (10:55)
[2017-06-16] MEDS: LISINOPRIL 5 MG TABLET PO SCH (10:56)
[2017-06-16] MEDS: INSULIN LISPRO 100 UNIT/ML 3 ML VIAL SUBCUT PRN (12:30)
--- NOTE | 2017-06-16 12:36 | DRAGON STRESS TEST REPORT ---
INTRAVENOUS LEXISCAN CARDIOLITE STRESS TEST USING SINGLE PHOTON EMMISION COMPUTERIZED TOMOGRAPHIC. DATE OF PROCEDURE: June 16, 2017, INDICATION : Chest pain CARDIAC RISK FACTORS: Diabetes, hypertension, dyslipidemia, family history of premature CAD RESTING EKG: Sinus rhythm, no baseline ST-T wave changes noted STRESS EKG: No significant ST segment changes noted with LexiScan bolus REASON FOR TERMINATION: Protocol. PROCEDURE REPORT: Baseline heart rate 73 beats per minute with blood pressure of 132/70. Patient had no significant complaints. Patient was bolused with Lexiscan 0.4 mg intravenously followed by saline bolus. Heart rate at 2 minutes post bolus 95 with a blood pressure of 120/60. 3 minutes post bolus heart rate 89 with blood pressure of 126/62. No significant EKG changes were noted. Patient had no significant complaints during the procedure or postprocedure. Patient injected with Aminophyllin 75 mg at 3 minutes or later after Lexiscan bolus. CONCLUSIONS: Normal EKG and hemodynamic response to IV LexiScan. NUCLEAR DATA: At rest the patient was given 12.91 millicuries of technetium 99 sestamibi injected intravenously. As per protocol rest gated SPECT images were obtained. On day of stress test, the patient was given intravenous LexiScan at a dose of 0.4 mg in 5 mL intravenously, followed by flush with normal saline. Subsequently the stress dose of 32.7 millicuries of technetium 99 sestamibi was injected intravenously. As per protocol stress gated images were obtained. NUCLEAR INTERPRETATION: Both raw and processed data were used for interpretation. Visual, qualitative, computer-generated quantitative data was used. There was good myocardial uptake of technetium compound. Motion artifact and soft tissue attenuations were noted. Increased visceral uptake was noted. No definitive areas of transient perfusion defect noted, No definitive areas of fixed perfusion defect or scars noted. EKG gated imaging showed LV EF at 62 %, rest and stress gated EF similar visually. T. I D. ratio was 0.76. Lung heart ratio noted to be within normal limits 0.31. No significant extracardiac and abnormal radiotracer activities were noted. RV free wall uptake was noted to be WNL. IMPRESSION: Also refer to comments under nuclear interpretation. Also test results needs to be interpreted in the context of pretest probability. 1. No definitive areas of transient perfusion defect noted. 2. There is no definitive scintigraphic evidence of myocardial infarction/scar. 3. EKG gated imaging shows left ventricular ejection fraction of approx. 62 %. 4. Clinical correlation requested as occasionally single vessel disease or balanced ischemia could be missed. In approximately 10% of the cases Lexiscan may not cause adequate vasodilatory stress. RECOMMENDATIONS: Aggressive risk factor modification and medical management. Further evaluation may be needed if continued symptoms or other high risk indicators are noted on clinical evaluation. Close cardiology follow-up is also recommended. Clinical correlation with echocardiogram derived ejection fraction. Inability to exercise by itself can lead to increased cardiovascular event risks. Consider cardiology consultation and or follow-up if clinically indicated. 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 MIKAYLA
[2017-06-16] MEDS: IBUPROFEN 600 MG TABLET PO PRN (13:08)
[2017-06-16] MEDS ORDERED: REGADENOSON INJ 0.4 MG/5 ML DISP.SYRIN IV ONE (14:33)
[2017-06-16] MEDS ORDERED: AMINOPHYLLINE INJ/PF 250 MG/10 ML SDV IV ONE (14:33)
[2017-06-16 18:23] VITALS: BP 144/73
--- NOTE | 2017-06-16 20:14 | PDOC CONSULTATION ---
Consultation Consult Date: 06/15/17 Attending physician:: AC HINOJOSA Consult reason:: CP History of Present Illness Admission Date/PCP: 06/12/17 02:19 Patient complains of: Chest pain History of Present Illness: KIARRA DELONG SR is a 61 year old male with a past medical history of diabetes, hypertension and dyslipidemia. Patient presents with 2 days of abdominal pain nausea polyuria polydipsia and uncontrolled blood sugar. Patient has been out of insulin for 2 weeks secondary to lack of funds. In the emergency room he is found to have severe metabolic acidosis, he is started on insulin, IV fluids and referred to the hospitalist for admission. Patient denies chest pain palpitations or diaphoresis. However had CP on thursday needing NTG. I was asked to evaluate patient because of chest pain. On questioning, patient denied any recurrence of chest pain. He claims to be doing reasonably well. Patient was scheduled for stress test. Past Medical History Cardiac Medical History: Reports: Hypertension Pulmonary Medical History: Reports: None EENT Medical History: Reports: None Neurological Medical History: Reports: None Endocrine Medical History: Reports: Diabetes Mellitus Type 1, Diabetes Mellitus Type 2 Renal/ Medical History: Reports: None Malignancy Medical History: Reports: None GI Medical History: Reports: None Musculoskeltal Medical History: Reports: Arthritis Skin Medical History: Reports: None Psychiatric Medical History: Reports: None Traumatic Medical History: Reports: None Hematology: Reports: None Infectious Medical History: Reports: None Past Surgical History Past Surgical History: Reports: None Social History Information Source: Patient Lives with: Family Smoking Status: Never Smoker Frequency of Alcohol Use: Occasional Drugs: None - Advance Directive Resuscitation Status: Full Code Family History Family History: Hypertension Parental Family History Reviewed: Yes Children Family History Reviewed: Yes Sibling(s) Family History Reviewed.: Yes Medication/Allergy Home Medications: Gabapentin [Neurontin 300 mg Capsule] 300 mg PO Q8 06/12/17 Lovastatin [Mevacor] 20 mg PO DAILY 06/12/17 Nortriptyline HCl [Pamelor] 50 mg PO QHS 06/12/17 Amlodipine Besylate [Norvasc 5 mg Tablet] 5 mg PO DAILY #30 tablet 06/16/17 Atorvastatin Calcium [Lipitor 20 mg Tablet] 20 mg PO QHS #30 tablet 06/16/17 Insulin Lispro [Admelog Solostar] 100 unit SQ ACHS #1 insuln.pen 03/20/18 Lisinopril [Prinivil 5 mg Tablet] 10 mg PO DAILY #30 tablet 06/16/17 Metoprolol Tartrate [Lopressor 25 mg Tablet] 12.5 mg PO Q12 #60 tablet 06/16/17 Allergies/Adverse Reactions: acetaminophen [From Percocet] Allergy (Verified 06/12/17 01:00) oxycodone [From Percocet] Allergy (Verified 06/12/17 01:00) Review of Systems Review of Systems: Please see history of present illness and past medical history as wall. Constitutional: No fever or chills reported. Head : No recent chronic headaches, recent head injury. Eyes: No recent eye pain, diplopia, redness, discharge, acute visual changes. Ears: No recent chronic ear pain, acute hearing loss, ear discharge. Oral cavity: No recent ulcerations, bleeding, oral cavity discomfort. Neck: No recent acute neck pain reported. Hematologic: No recent easy bruising or bleeding or hematologic malignancy reported. Lymphatic: No recent lymphatic malignancy, chronic lymphadenopathy reported yet Cardiovascular system review: See history of present illness. Respiratory system review: No recent chronic cough, hemoptysis, blood clots in the lungs reported. Mild Shortness of breath on exertion Gastrointestinal system review: Presents with abdominal pain, denies hematemesis , melena, recent change in bowel habits. Genitourinary system review: No recent acute or chronic hematuria, flank pain, UTI etc. reported. Skin system review: Negative for any recent abnormal bruising, no rash, no pruritus reported. Neurologic: No prior history of strokes, mini strokes, seizure disorder. Psychologic: No history of major psychosis or major depression reported. Musculoskeletal: Minor aches and pains reported. No acute joint swelling reported. Endocrine: No recent polyuria, polydipsia, recent heat or cold intolerance. Physical Exam Vital Signs: Temp Pulse Resp BP Pulse Ox 97.6 F 67 18 144/73 H 99 06/15/17 07:47 06/15/17 07:47 06/15/17 07:47 06/15/17 09:12 06/15/17 07:47 Intake & Output 06/14/17 06/15/17 06/16/17 06:59 06:59 06:59 Intake Total 1646 1470 Output Total 400 600 Balance 1246 870 Weight 84.3 kg 83.6 kg Exam: GENERAL: well-nourished and in no acute distress. Alert and oriented x3 HEAD: Atraumatic, normocephalic. EYES: Pupils equal round and reactive to light, extraocular movements intact, sclera anicteric, conjunctiva are normal. ENT: TMs normal, nares patent, oropharynx clear without exudates. Moist mucous membranes. No oral ulcerations or bleeding gums noted NECK: supple without lymphadenopathy. Trachea is central. No cervical or axillary lymphadenopathy noted. Carotids are 2+, JVD WNL LUNGS: Respiration seems nonlabored, no significant accessory muscle action noted. Breath sounds clear to auscultation bilaterally and equal noted. No wheezes rales or rhonchi noted. No significant dullness noted on percussion. CHEST: Palpation of the chest wall shows no significant chest wall tenderness. No other significant abnormalities noted. 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 ABDOMEN: Soft, no significant tenderness appreciated, normoactive bowel sounds. No guarding, no rebound. No rigidity noted . No masses appreciated. EXTREMITIES: Pedal pulses are 1-2+, no calf tenderness noted. No clubbing or cyanosis.trace to 1+ pedal edema noted NEUROLOGICAL: Focused neurological exam showed no significant neurologic deficit. Normal speech, no focal weakness appreciated. PSYCH: Normal mood, normal affect. Judgment and insight within normal limits. SKIN: No significant ecchymosis, skin is noted to be warm. MUSCULOSKELETAL EXAM: No significant acute joint swelling noted. Results Laboratory Results: 06/15/17 04:55 06/15/17 04:55 06/14/17 06/14/17 06/14/17 17:52 17:52 18:33 WBC Cancelled 9.3 RBC Cancelled 4.75 Hgb Cancelled 15.1 Hct Cancelled 44.0 MCV Cancelled 93 MCH Cancelled 31.7 MCHC Cancelled 34.3 RDW Cancelled 12.6 Plt Count Cancelled 274 Sodium Potassium Chloride Carbon Dioxide Anion Gap BUN Creatinine 0.55 Est GFR ( Amer) > 60 Est GFR (Non-Af Amer) > 60 Glucose Calcium Phosphorus Magnesium Albumin Urine Color Urine Appearance Urine pH Ur Specific [place] Urine Protein Urine Glucose (UA) Urine Ketones Urine Blood Urine Nitrite Ur Leukocyte Esterase Urine WBC (Auto) Urine RBC (Auto) 06/15/17 06/15/17 06/15/17 03:40 04:55 04:55 WBC 8.0 RBC 4.68 Hgb 15.0 Hct 43.2 MCV 92 MCH 32.1 MCHC 34.8 RDW 12.7 Plt Count 265 Sodium 137.6 Potassium 3.4 L Chloride 100 Carbon Dioxide 27 Anion Gap 11 BUN 10 Creatinine 0.55 Est GFR ( Amer) > 60 Est GFR (Non-Af Amer) > 60 Glucose 128 H Calcium 8.9 Phosphorus 2.5 Magnesium 2.0 Albumin 3.3 L Urine Color YELLOW Urine Appearance CLEAR Urine pH 6.0 Ur Specific [place] 1.028 Urine Protein >=500 H Urine Glucose (UA) >=500 H Urine Ketones 80 H Urine Blood NEGATIVE Urine Nitrite NEGATIVE Ur Leukocyte Esterase NEGATIVE Urine WBC (Auto) 1 Urine RBC (Auto) 1 06/13/17 06/13/17 06/14/17 23:17 23:17 04:51 Creatine Kinase 36 L 25 L CK-MB (CK-2) 0.41 Troponin I < 0.012 06/14/17 06/14/17 06/14/17 04:51 11:02 11:02 Creatine Kinase 26 L CK-MB (CK-2) 0.25 0.30 Troponin I < 0.012 < 0.012 06/14/17 06/14/17 06/14/17 17:52 17:52 23:51 Creatine Kinase 26 L 23 L CK-MB (CK-2) 0.27 Troponin I < 0.012 06/14/17 06/15/17 06/15/17 23:51 04:55 04:55 Creatine Kinase 24 L CK-MB (CK-2) < 0.22 < 0.22 Troponin I < 0.012 < 0.012 EKG Comments: Sinus rhythm, no acute ST-T wave changes are noted. Assessment & Plan - Diagnosis (1) Chest pain Qualifiers: Chest pain type: unspecified Qualified Code(s): R07.9 - Chest pain, unspecified Is this a current diagnosis for this admission?: Yes (2) Diabetic ketoacidosis Qualifiers: Diabetes mellitus type: type 2 Diabetes mellitus complication detail: without coma Qualified Code(s): E11.10 - Type 2 diabetes mellitus with ketoacidosis without coma Is this a current diagnosis for this admission?: Yes (3) Hyperglycemia Is this a current diagnosis for this admission?: Yes (4) Metabolic acidosis Is this a current diagnosis for this admission?: Yes (5) Nausea and vomiting Qualifiers: Vomiting type: unspecified Vomiting Intractability: non-intractable Qualified Code(s): R11.2 - Nausea with vomiting, unspecified Is this a current diagnosis for this admission?: Yes - Notes Notes: Patient was admitted with chest pain and diabetic ketoacidosis was diagnosed. Subsequently over the weekend he had some chest discomfort. Because of his cardiac risk factors, I was consulted. Patient was scheduled for a stress test. Patient currently chest pain-free. At this point will recommend aspirin therapy, statins, beta-tito etc. Further plans after stress test is completed. We will also recommend obtaining a 2D echocardiogram. As regards other diagnoses listed, currently stable and improved. Patient to report any recurrence of chest pain. - Time Time Spent: 30 to 50 Minutes - CODE STATUS was discussed, patient remains full code. Multiple medical problems were addressed. More than 50% of the time spent coordinating care, discussing management plans with involved caregivers. Management plans discussed with involved personnels. Medical decision making was of moderate complexity, patient's has multiple comorbidities. Medications reviewed and adjusted accordingly: Yes
--- NOTE | 2017-06-16 20:17 | PDOC PROGRESS REPORT ---
Subjective Progress Note for:: 06/16/17 Subjective:: Patient seems to be doing better with gradual improvement. Pt is denying any chest arm or neck discomfort. Patient denying any PND, orthopnea. Patient denied any sustained palpitations, dizziness, syncope, near syncope. Patient denying any fever chills. Patient denying any other significant discomfort. Patient is maintaining sinus rhythm. Review of systems: Rest review of systems negative. Medications: Medications have been reviewed. Reason For Visit: DKA, HTN, NAUSEA VOMITING Physical Exam Vital Signs: Temp Pulse Resp BP Pulse Ox 98.7 F 72 18 104/56 L 96 06/16/17 07:48 06/16/17 07:48 06/16/17 07:48 06/16/17 07:48 06/16/17 07:48 Intake & Output 06/15/17 06/16/17 06/17/17 06:59 06:59 06:59 Intake Total 1470 1484 Output Total 600 200 Balance 870 1284 Weight 83.6 kg 82.7 kg Exam: GENERAL: well-nourished and in no acute distress. Alert and oriented x3 HEAD: Atraumatic, normocephalic. EYES: Pupils equal round and reactive to light, extraocular movements intact, sclera anicteric, conjunctiva are normal. ENT: TMs normal, nares patent, oropharynx clear without exudates. Moist mucous membranes. No oral ulcerations or bleeding gums noted NECK: supple without lymphadenopathy. Trachea is central. No cervical or axillary lymphadenopathy noted. Carotids are 2+, JVD WNL LUNGS: Respiration seems nonlabored, no significant accessory muscle action noted. Breath sounds clear to auscultation bilaterally and equal noted. No wheezes rales or rhonchi noted. No significant dullness noted on percussion. CHEST: Palpation of the chest wall shows no significant chest wall tenderness. No other significant abnormalities noted. HEART: [place] GARBAGE PERSON, No PSH, 1/6 TORI aortic area, 1/6 cordon systolic murmur mitral area, no rubs, no gallops. ABDOMEN: Soft, no significant tenderness appreciated, normoactive bowel sounds. No guarding, no rebound. No rigidity noted . No masses appreciated. EXTREMITIES: Pedal pulses are 1-2+, no calf tenderness noted. No clubbing or cyanosis. Negative pedal edema noted NEUROLOGICAL: Focused neurological exam showed no significant neurologic deficit. Normal speech, no focal weakness appreciated. PSYCH: Normal mood, normal affect. Judgment and insight within normal limits. SKIN: No significant ecchymosis, skin is noted to be warm. MUSCULOSKELETAL EXAM: No significant acute joint swelling noted. Results Laboratory Results: 06/15/17 04:55 06/16/17 08:33 06/16/17 06/16/17 04:50 08:33 Sodium 137.6 Potassium 3.0 L* Chloride 97 L Carbon Dioxide 32 H Anion Gap 9 BUN 11 Creatinine 0.54 Est GFR ( Amer) > 60 Est GFR (Non-Af Amer) > 60 Glucose 132 H Calcium 8.7 Phosphorus 2.7 Magnesium 2.0 Urine Color YELLOW Urine Appearance CLEAR Urine pH 6.0 Ur Specific Sandy 1.029 Urine Protein >=500 H Urine Glucose (UA) >=500 H Urine Ketones 80 H Urine Blood NEGATIVE Urine Nitrite NEGATIVE Ur Leukocyte Esterase NEGATIVE Urine WBC (Auto) 1 Urine RBC (Auto) 1 06/13/17 06/13/17 06/14/17 23:17 23:17 04:51 Creatine Kinase 36 L 25 L CK-MB (CK-2) 0.41 Troponin I < 0.012 06/14/17 06/14/17 06/14/17 04:51 11:02 11:02 Creatine Kinase 26 L CK-MB (CK-2) 0.25 0.30 Troponin I < 0.012 < 0.012 06/14/17 06/14/17 06/14/17 17:52 17:52 23:51 Creatine Kinase 26 L 23 L CK-MB (CK-2) 0.27 Troponin I < 0.012 06/14/17 06/15/17 06/15/17 23:51 04:55 04:55 Creatine Kinase 24 L CK-MB (CK-2) < 0.22 < 0.22 Troponin I < 0.012 < 0.012 EKG Comments: Sinus rhythm no acute ST-T wave changes noted Assessment & Plan - Diagnosis (1) Chest pain Qualifiers: Chest pain type: unspecified Qualified Code(s): R07.9 - Chest pain, unspecified Is this a current diagnosis for this admission?: Yes (2) Diabetic ketoacidosis Qualifiers: Diabetes mellitus type: type 2 Diabetes mellitus complication detail: without coma Qualified Code(s): E11.10 - Type 2 diabetes mellitus with ketoacidosis without coma Is this a current diagnosis for this admission?: Yes (3) Hyperglycemia Is this a current diagnosis for this admission?: Yes (4) Metabolic acidosis Is this a current diagnosis for this admission?: Yes (5) Nausea and vomiting Qualifiers: Vomiting type: unspecified Vomiting Intractability: non-intractable Qualified Code(s): R11.2 - Nausea with vomiting, unspecified Is this a current diagnosis for this admission?: Yes (6) Vomiting Qualifiers: Vomiting type: unspecified Vomiting Intractability: non-intractable Nausea presence: with nausea Qualified Code(s): R11.2 - Nausea with vomiting, unspecified - Notes Notes: 2D echocardiogram results were discussed. 2D echocardiogram was obtained yesterday. This morning nuclear stress test procedure was discussed. Risk benefits discussed. Patient underwent nuclear stress test without any complications. No significant ischemia was noted. In the afternoon results of nuclear stress test discussed. Chest pain: Patient claims chest pain is resolved. This was evaluated with a nuclear stress test. Nuclear stress test was negative for any significant areas of ischemia or any significant areas of scar. The nuclear stress test is felt to be relatively low risk. Patient informed that occasionally single- vessel disease and balanced ischemia could be missed. Patient advised aggressive risk factor modification and medical therapy. Patient informed that further evaluation may become necessary if symptoms worsens or there is a development of new symptoms indicative of angina or angina equivalent symptom. Diabetes: Patient recommended good control Recommend lipid panel and statin therapy patient is a candidate for it. Patient can follow-up with me if he wishes. - Time Time with patient: Greater than 35 minutes - Patient was seen multiple times. Total time exceeds 40 minutes. In the morning nuclear stress test procedure, risks benefits, alternatives were discussed. Patient seen during the stress test. Patient also seen after stress test when results were discussed with the patient in detail. Patient's questions were answered. Nuclear stress test results were discussed with the patient. Patient was informed that no definitive evidence of pharmacologic stress-induced ischemia noted. No definite fixed defects were noted. Patient informed that occasionally significant single vessel disease or balanced ischemia could be missed. However based on the current study results, would recommend aggressive risk factor modification and medical therapy. It may also be worthwhile to consider evaluation or empiric management of other causes of chest pain. Should no other cause be found and if persistent in having chest pain, then cardiac catheterization should be considered. Right now, recommendations are for aggressive risk factor modification and medical management. 2D echocardiogram results discussed. Management plans discussed. More than 50% of the time spent coordinating care, discussing management plans with involved caregivers. Management plans discussed with involved personnels. Medical decision making was of moderate to high complexity, patient's has multiple comorbidities. Medications reviewed and adjusted accordingly: Yes
== END 2017-06-16 19:30 | disposition home or self-care (01) | DRG 639 ==
LOC: ER 22:54 → EH 06-12 02:19 → 3W 06-12 14:02
PROVIDERS: ADMIT Internal Medicine; ATTEND Internal Medicine
DX: E11.10 Type 2 diabetes mellitus with ketoacidosis without coma (principal); E78.5 Hyperlipidemia, unspecified; E11.22 Type 2 diabetes mellitus with diabetic chronic kidney disease; I12.9 Hypertensive chronic kidney disease with stage 1 through stage 4 chronic kidney disease, or unspecified chronic kidney disease; N18.9 Chronic kidney disease, unspecified; F17.200 Nicotine dependence, unspecified, uncomplicated; E86.0 Dehydration; M19.90 Unspecified osteoarthritis, unspecified site; R07.9 Chest pain, unspecified; T38.3X6A Underdosing of insulin and oral hypoglycemic [antidiabetic] drugs, initial encounter; Z79.4 Long term (current) use of insulin; Z91.138 Patient's unintentional underdosing of medication regimen for other reason; Z59.7 Insufficient social insurance and welfare support; Z88.6 Allergy status to analgesic agent
CPT/HCPCS: 36415; 78452; 80048; 80053; 80069; 80307; 81001; 82272; 82550; 82553; 82565; 82570; 82803; 82962; 83036; 83690; 83735; 84100; 84156; 84484; 85025; 85027; 85610; 85730; 86850; 86900; 86901; 93005; 93010; 93017; 93306; 96361; 96374; 96375; 99285; A9500; J0280; J0360; J1200; J1644; J1650; J1815; J2060; J2405; J2765; J2785; J3010; J3480; J3490; J7030; J7120; Q9969

== ENCOUNTER → 2017-08-13 | Outpatient (CLI) | payer MEDICAID ==
[2017-08-13 11:58] LABS: HEMATOCRIT 43.5 % (37.9-51.0); HEMOGLOBIN 15.2 g/dL (13.5-17.0); MEAN CORPUSCULAR HEMOGLOBIN 32.7 pg (27.0-33.4); MEAN CORPUSCULAR VOLUME 94 fl (80-97); PLATELET COUNT 404 10^3/uL (150-450); RED BLOOD COUNT 4.65 10^6/uL (4.35-5.55); WHITE BLOOD COUNT 9.4 10^3/uL (4.0-10.5)
[2017-08-13 12:02] LABS: APPEARANCE,URINE CLEAR; BILIRUBIN,URINE NEGATIVE (NEGATIVE); COLOR,URINE YELLOW; GLUCOSE, URINE >=500 mg/dL (NEGATIVE); KETONES,URINE NEGATIVE (NEGATIVE); LEUKOCYTE ESTERASE,URINE NEGATIVE (NEGATIVE); NITRITE,URINE NEGATIVE (NEGATIVE); PROTEIN,URINE 30 mg/dL (NEGATIVE); URINE SPECIFIC GRAVITY 1.012; UROBILINOGEN,URINE NEGATIVE mg/dL (<2.0)
[2017-08-13 12:20] LABS: ANION GAP 11 (5-19); BLOOD UREA NITROGEN 10 mg/dL (7-20); CALCIUM 9.8 mg/dL (8.4-10.2); CARBON DIOXIDE 30 mmol/L (22-30); CHLORIDE 94 mmol/L (98-107); GLUCOSE 258 mg/dL (75-110); POTASSIUM 4.9 mmol/L (3.6-5.0); SODIUM 135.3 mmol/L (137-145)
== END ==
LOC: OD 10:40
PROVIDERS: ATTEND Internal Medicine Nephrology
DX: E87.5 Hyperkalemia (principal); R80.9 Proteinuria, unspecified; E11.9 Type 2 diabetes mellitus without complications; I10 Essential (primary) hypertension
CPT/HCPCS: 36415; 80048; 81001; 85027

== ENCOUNTER → 2018-04-22 | Outpatient (CLI) | payer MEDICAID ==
--- NOTE | 2018-04-22 10:01 | RADIOLOGY REPORT (SQ) ---
EXAM DESCRIPTION: CT CHEST WITHOUT COMPLETED DATE/TIME: 04/22/2018 9:35 am REASON FOR STUDY: OTHER NONSPECIFIC ABNORMAL FINDING OF LUNG FIELD (R91.8) R91.8 OTHER NONSPECIFIC ABNORMAL FINDING OF LUNG FIELD COMPARISON: AP chest 07/22/2007 TECHNIQUE: CT scan performed of the chest without intravenous contrast. Images reviewed with lung, soft tissue and bone windows. Reconstructed coronal and sagittal MPR images reviewed. All images st ored on PACS. All CT scanners at this facility use dose modulation, iterative reconstruction, and/or weight based d osing when appropriate to reduce radiation dose to as low as reasonably achievable (ALARA). [facility]: Dose Right [facility]: CareDose [facility]: Dose Right [facility]: Teradose 4D [facility]: AxisRooms RADIATION DOSE: CT Rad equipment meets quality standard of care and radiation dose reduction techniq ues were employed. CTDIvol: 12.2 mGy. DLP: 456 mGy-cm. mGy. LIMITATIONS: No technical limitations. FINDINGS: LUNGS AND PLEURA: Diffuse honeycombing around the periphery of both lungs, with thickened interlobular septi and enlarged airspaces. This likely represents usual interstitial pneumonitis/pul monary fibrosis. No acute infiltrates. No pleural effusion. No pneumothorax. No worrisome pulmonary nodules. Airwa ys are patent. HILAR AND MEDIASTINAL STRUCTURES: Mild mediastinal adenopathy is present, lymph nodes are as follows: Pretracheal 1.7 x 1 cm node axial image 21 Precarinal 2 x 1.6 cm lymph node axial image 25 Left hilar 1.2 x 0.9 cm lymph node axial image 25 HEART AND VASCULAR STRUCTURES: No aneurysm. No pericardial effusion. Heavy coronary artery calcific ations. Calcified aortic valve UPPER ABDOMEN: No significant findings. Limited exam. THYROID AND OTHER SOFT TISSUES: No masses. No adenopathy. BONES: No significant finding. HARDWARE: None in the chest. OTHER: No other significant findings. IMPRESSION: Peripheral honeycomb appearance lung parenchymal scarring from usual interstitial pneumo nitis/pulmonary fibrosis TECHNICAL DOCUMENTATION: JOB ID: [id number] Quality ID # [id number]: Final reports with documentation of one or more dose reduction techniques (e.g., Au tomated exposure control, adjustment of the mA and/or kV according to patient size, use of iterative reconstruction technique) 2010 [employer]- All Rights Reserved Reading location - IP/workstation name: [email or web address]
== END ==
LOC: RAD 09:00
PROVIDERS: ATTEND Nurse Practitioner Family
DX: R91.8 Other nonspecific abnormal finding of lung field (principal); Z87.891 Personal history of nicotine dependence
CPT/HCPCS: 71250

== ENCOUNTER → 2018-11-18 | Outpatient (CLI) | payer OTHER ==
[~2018-11-18] MED LIST: ALBUTEROL SULFATE 0.083% NEB 2.5 MG/3 ML AMPUL NEB ONE
== END ==
LOC: RT 08:07
DX: R06.02 Shortness of breath (principal)
CPT/HCPCS: 94060; 94729

== ENCOUNTER 2019-03-18 12:26 | Inpatient (IN) | payer MEDICAID, OTHER ==
[2019-03-18 12:56] LABS: ABSOLUTE BASOPHILS # (AUTO) 0.1 10^3/uL (0.0-0.2); ABSOLUTE EOSINOPHILS # (AUTO) 0.3 10^3/uL (0.0-0.6); ABSOLUTE LYMPHOCYTES (AUTO) 2.4 10^3/uL (0.5-4.7); ABSOLUTE MONOCYTES (AUTO) 0.8 10^3/uL (0.1-1.4); ABSOLUTE NEUT (AUTO) 15.2 10^3/uL (1.7-8.2); BASOPHILS % (AUTO) 0.6 % (0-2); EOSINOPHILS % (AUTO) 1.8 % (0-6); HEMATOCRIT 44.6 % (37.9-51.0); HEMOGLOBIN 14.8 g/dL (13.5-17.0); LYMPHOCYTES % (AUTO) 12.7 % (13-45); MEAN CORPUSCULAR HEMOGLOBIN 30.7 pg (27.0-33.4); MEAN CORPUSCULAR HGB CONC 33.2 g/dL (32.0-36.0); MEAN CORPUSCULAR VOLUME 92 fl (80-97); MONOCYTES % (AUTO) 4.4 % (3-13); PLATELET COUNT 446 10^3/uL (150-450); RED BLOOD COUNT 4.83 10^6/uL (4.35-5.55); RED CELL DISTRIBUTION WIDTH 13.3 % (11.5-14.0); SEGMENTED NEUTROPHILS % (AUTO) 80.5 % (42-78); TOTAL CELLS COUNTED % (AUTO) 100 %; WHITE BLOOD COUNT 18.9 10^3/uL (4.0-10.5)
[2019-03-18 13:11] LABS: ALBUMIN 3.9 g/dL (3.5-5.0); ALKALINE PHOSPHATASE 91 U/L (38-126); ANION GAP 18 (5-19); ASPARTATE AMINO TRANSFERASE 31 U/L (17-59); BILIRUBIN,DIRECT 0.4 mg/dL (0.0-0.4); BILIRUBIN,TOTAL 0.9 mg/dL (0.2-1.3); BLOOD UREA NITROGEN 15 mg/dL (7-20); CALCIUM 9.4 mg/dL (8.4-10.2); CARBON DIOXIDE 18 mmol/L (22-30); CHLORIDE 101 mmol/L (98-107); GLUCOSE 297 mg/dL (75-110); POTASSIUM 5.1 mmol/L (3.6-5.0); TOTAL PROTEIN 7.6 g/dL (6.3-8.2)
--- NOTE | 2019-03-18 13:16 | RADIOLOGY REPORT (SQ) ---
EXAM DESCRIPTION: CHEST SINGLE VIEW COMPLETED DATE/TIME: 03/18/2019 12:58 pm REASON FOR STUDY: SOB COMPARISON: AP view of the chest from July 25 07/17/[address] of the chest from 04/22/2018. EXAM PARAMETERS: NUMBER OF VIEWS: One view. TECHNIQUE: An AP view of the chest was obtained. RADIATION DOSE: NA LIMITATIONS: None. FINDINGS: LUNGS AND PLEURA: Diffuse asymmetric peripheral reticular opacities and asymmetric alveola r opacities in the left base. The costophrenic sulci are blunted. There is no pneumothorax. MEDIASTINUM AND HILAR STRUCTURES: No mediastinal or hilar contour abnormality. HEART AND VASCULAR STRUCTURES: The cardiac silhouette and pulmonary vasculature are within normal santiago its. BONES: No acute findings. HARDWARE: None in the chest. OTHER: No other finding. IMPRESSION: Findings of fibrotic interstitial lung disease with a suspected superimposed left lower lobe consolidation. TECHNICAL DOCUMENTATION: JOB ID: [id number] [employer]- All Rights Reserved Reading location - IP/workstation name: [email or web address]
[2019-03-18 13:17] LABS: ARTERIAL BLOOD BASE EXCESS -7.9 mmol/L; ARTERIAL BLOOD H2CO3 0.84 mmol/L (1.05-1.35); ARTERIAL BLOOD HCO3 15.7 mmol/L (20-24); ARTERIAL BLOOD O2 SATURATION 95.1 % (94-98); ARTERIAL BLOOD PH 7.37 (7.35-7.45); ARTERIAL BLOOD PO2 76.2 mmHg (80-100); ARTERIAL BLOOD TOTAL CO2 16.6 mmol/L (23-27)
[2019-03-18 13:18] LABS: ARTERIAL BLOOD FIO2 3L
[2019-03-18] MEDS ORDERED: IPRATROPIUM/ALBUTEROL 0.5-2.5 MG/3 ML AMPUL NEB ONE (15:49)
[2019-03-18] MEDS ORDERED: CEFTRIAXONE INJ 1000 MG VIAL IV ONE (15:50)
[2019-03-18] MEDS ORDERED: AZITHROMYCIN INJ 500 MG VIAL IV ONE (15:52)
--- NOTE | 2019-03-18 16:00 | ER Document Report ---
ED Respiratory Problem - General Chief Complaint: Shortness Of Breath Stated Complaint: SHORTNESS OF BREATH Time Seen by Provider: 03/18/19 12:40 Notes: 63-year-old man presents to the emergency department with history of pulmonary fibrosis. Seen by his primary care provider today with tachycardia, hypoxemia and increased work to breathe. He was sent to the emergency department for further evaluation and treatment. Patient is not on home O2 TRAVEL OUTSIDE OF THE [place] IN LAST 30 DAYS: No - Related Data Allergies/Adverse Reactions: acetaminophen [From Percocet] Allergy (Verified 06/12/17 01:00) oxycodone [From Percocet] Allergy (Verified 06/12/17 01:00) Past Medical History - Social History Smoking Status: Former Smoker Chew tobacco use (# tins/day): No Frequency of alcohol use: Occasional Family History: Hypertension Patient has suicidal ideation: No Patient has homicidal ideation: No - Past Medical History Cardiac Medical History: Reports: Hx Hypertension Endocrine Medical History: Reports: Hx Diabetes Mellitus Type 1, Hx Diabetes Mellitus Type 2 Renal/ Medical History: Denies: Hx Peritoneal Dialysis Musculoskeletal Medical History: Reports Hx Arthritis Past Surgical History: Reports: Hx Orthopedic Surgery - left shoulder - Immunizations Hx Diphtheria, Pertussis, Tetanus Vaccination: Yes Review of Systems - Review of Systems Notes: Constitutional: Negative for fever. HENT: Negative for sore throat. Eyes: Negative for visual changes. Cardiovascular: Negative for chest pain. Respiratory: + Shortness of breath. Gastrointestinal: Negative for abdominal pain, vomiting or diarrhea. Genitourinary: Negative for dysuria. Musculoskeletal: Negative for back pain. Skin: Negative for rash. Neurological: Negative for headaches, weakness or numbness. 10 point ROS negative except as marked above and in HPI. Physical Exam - Vital signs Vitals: Pulse Ox 92 03/18/19 12:33 - Notes Notes: PHYSICAL EXAMINATION: Physical Exam: General: Well-nourished well-developed 63-year-old male with respiratory distress HEENT: NC/AT, pupils equal round and reactive to light, MM moist,nares clear, Neck: supple, no adenopathy, no masses. Lungs: Coarse breath sounds, using accessory muscles of respiration, deep respiratory effort with poor air movement CVS: Tachycardic rate and rhythm no murmur gallop or rub Abdomen: Soft active nontender, no masses, no hepatosplenomegaly Ext: No edema clubbing or cyanosis. Neuro: Alert and responsive, moving all 4 extremities on command, cranial nerves intact. Skin: Pale/cyanotic on presentation PSYCH: Normal mood, normal affect. Course - Re-evaluation Re-evalutation: 03/18/19 16:02 Patient presents with hypoxia and increased work to breathe, improved with 15 L face mask. Patient has improved with O2 sat in the 98% range, chest x-ray reveals left lower lobe pneumonia white count is 18,000, I have discussed with the patient the need for admission to the hospital for further evaluation and treatment. Blood cultures and lactate were ordered, the patient is given community-acquired pneumonia treatment with Rocephin and Zithromax. Discussed the patient with the hospitalist, Dr Toure, he will admit the patient to the hospital for further treatment and evaluation. 03/18/2019 I discussed this plan with the patient and her and they are in agreement with being admitted to the hospital for further treatment. - Vital Signs Vital signs: Temp Pulse Resp BP Pulse Ox 98.3 F 88 25 H 116/72 97 03/20/19 23:00 03/20/19 23:00 03/21/19 00:00 03/20/19 23:00 03/21/19 00:00 - Laboratory Result Diagrams: 03/20/19 05:30 03/20/19 05:30 Laboratory results interpreted by me: 03/18/19 03/18/19 03/18/19 12:48 12:48 12:52 WBC 18.9 H Lymph % (Auto) 12.7 L Absolute Neuts (auto) 15.2 H Seg Neutrophils % 80.5 H Carbonic Acid 0.84 L ABG pCO2 28.0 L ABG pO2 76.2 L ABG HCO3 15.7 L ABG Total CO2 16.6 L Sodium 136.7 L Potassium 5.1 H Carbon Dioxide 18 L Creatinine 1.37 H Est GFR (MDRD) Non-Af 53 L Glucose 297 H 03/18/19 16:05 I have reviewed laboratory data and used this information for the treatment decisions regarding the patient. - Diagnostic Test Radiology reviewed: Image reviewed, Reports reviewed - Chest x-ray. Pulmonary fibrosis with a left lower lobe density. Discharge - Discharge Clinical Impression: Pulmonary fibrosis, Hypoxia Left lower lobe pneumonia Qualifiers: Pneumonia type: due to unspecified organism Qualified Code(s): J18.9 - Pneumonia, unspecified organism Disposition: ADMITTED INPATIENT Admitting Provider: Mesfin (Hospitalist) Unit Admitted: [facility]
[2019-03-18] MEDS ORDERED: GUAIFENESIN SYRP 200 MG/10 ML UDC PO PRN (17:06)
--- NOTE | 2019-03-18 17:08 | EKG REPORT ---
SEVERITY:- ABNORMAL ECG - SINUS TACHYCARDIA VENTRICULAR PREMATURE COMPLEX PROBABLE LEFT ATRIAL ABNORMALITY LEFT POSTERIOR FASCICULAR BLOCK NONSPECIFIC T ABNORMALITIES, ANTERIOR LEADS : Confirmed by: Ute Tyson 18-Mar-2019 17:08:05
[2019-03-18] MEDS ORDERED: DEXTROSE 50%-WATER 25 GM/50 ML DISP.SYRIN IV PRN ×2 (17:21)
[2019-03-18] MEDS ORDERED: GLUCAGON,HUMAN RECOMB 1 MG INJ IM PRN (17:21)
[2019-03-18] MEDS ORDERED: DEXTROSE 40% GEL 15 GM TUBE PO PRN ×2 (17:21)
--- NOTE | 2019-03-18 17:42 | PDOC H&P ---
History of Present Illness Admission Date/PCP: FIFI DAVIS Patient complains of: Shortness of breath History of Present Illness: KIARRA DELONG SR is a 63 year old male with recently diagnosed idiopathic pulmonary fibrosis [05/2018], DM 2, hypertension, COPD, who presents to the hospital with complaints of progressive shortness of breath over the past 2 to 3 months. 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 Patient endorses increased sputum production and cough. Patient states he does not use oxygen at home as he has never been hypoxic to the point of qualify for oxygen. Patient states that he tried nintedanib for 3 months earlier this year but with no success and has been connected with [facility] for evaluation for lung transplant. Patient also endorses lightheadedness when standing. This has become more frequently recently. Past Medical History Cardiac Medical History: Reports: Hypertension Pulmonary Medical History: Reports: Chronic Obstructive Pulmonary Disease (COPD), Other - Pulmonary fibrosis Endocrine Medical History: Reports: Diabetes Mellitus Type 2 Musculoskeltal Medical History: Reports: Arthritis Past Surgical History Past Surgical History: Reports: Orthopedic Surgery - left shoulder Social History Smoking Status: Former Smoker Electronic Cigarette use?: No Frequency of Alcohol Use: Occasional Drugs: None - Advance Directive Resuscitation Status: Full Code Family History Family History: CAD, DM, Hypertension Parental Family History Reviewed: Yes Children Family History Reviewed: NA Sibling(s) Family History Reviewed.: Yes Medication/Allergy Home Medications: Lovastatin [Mevacor] 20 mg PO DAILY 06/12/17 Amlodipine Besylate [Norvasc 5 mg Tablet] 5 mg PO DAILY #30 tablet 06/16/17 Metoprolol Tartrate [Lopressor 25 mg Tablet] 12.5 mg PO Q12 #60 tablet 06/16/17 Albuterol Sulfate [Proair Hfa Inhalation Aerosol 8.5 gm Mdi] 2 puff IH Q4HP PRN 03/18/19 Budesonide/Formoterol Fumarate [Symbicort HFA 160-4.5 mcg Inhaler 6 gm] 2 puff IH Q12 03/18/19 Exenatide Microspheres [Bydureon Pen] 2 mg SUBCUT .QWEEKLY 03/18/19 Hydroxyzine HCl [Atarax 50 mg Tablet] 50 mg PO BIDP PRN 03/18/19 Insulin Glargine,Hum.rec.anlog [Lantus Insulin 100 Unit/mL Insulin Pen] 46 units SUBCUT QHS 03/18/19 Lisinopril 20 mg PO DAILY 03/18/19 Loratadine [Claritin 10 mg Tablet] 10 mg PO DAILY 03/18/19 Naproxen 500 mg PO Q12 03/18/19 Nortriptyline HCl [Pamelor 25 Mg Capsule] 75 mg PO QHS 03/18/19 Omeprazole 20 mg PO DAILY 03/18/19 Tiotropium [place] [Spiriva Handihaler 5 Cap/Kit (18 Mcg/Cap)] 1 cap IH DAILY 03/18/19 Topiramate [Topamax 100 mg Tablet] 100 mg PO DAILY 03/18/19 Allergies/Adverse Reactions: acetaminophen [From Percocet] Allergy (Verified 06/12/17 01:00) oxycodone [From Percocet] Allergy (Verified 06/12/17 01:00) Review of Systems Constitutional: ABSENT: chills, fever(s) Eyes: PRESENT: visual disturbances Nose, Mouth, and Throat: ABSENT: headache(s) Cardiovascular: ABSENT: chest pain, edema, orthropnea Respiratory: PRESENT: cough, dyspnea, sputum Gastrointestinal: ABSENT: abdominal pain, nausea, vomiting Genitourinary: ABSENT: dysuria Musculoskeletal: ABSENT: back pain Integumentary: ABSENT: diaphoresis Neurological: PRESENT: dizziness - On standing. ABSENT: confusion Physical Exam Vital Signs: Temp Pulse Resp BP Pulse Ox 97.4 F 30 H 114/79 91 L 03/18/19 13:03 03/18/19 14:01 03/18/19 14:01 03/18/19 14:01 Intake & Output 03/17/19 03/18/19 03/19/19 06:59 06:59 06:59 Weight 90.718 kg General appearance: PRESENT: cooperative Head exam: PRESENT: normocephalic Neck exam: ABSENT: JVD Respiratory exam: PRESENT: crackles - fine Grainy crackles, symmetrical, unlabored. ABSENT: tachypnea, wheezes Cardiovascular exam: PRESENT: RRR, +S1, +S2. ABSENT: tachycardia GI/Abdominal exam: PRESENT: normal bowel sounds, soft. ABSENT: rebound, rigid, tenderness Extremities exam: ABSENT: joint swelling, pedal edema, +1 edema, +2 edema Musculoskeletal exam: PRESENT: ambulatory Neurological exam: PRESENT: alert, awake, oriented to person, oriented to place, oriented to time, oriented to situation Results Laboratory Results: 03/18/19 12:48 03/18/19 12:48 03/18/19 03/18/19 03/18/19 12:48 12:48 12:52 WBC 18.9 H RBC 4.83 Hgb 14.8 Hct 44.6 MCV 92 MCH 30.7 MCHC 33.2 RDW 13.3 Plt Count 446 Seg Neutrophils % 80.5 H Carbonic Acid 0.84 L HCO3/H2CO3 Ratio 18:1 ABG pH 7.37 ABG pCO2 28.0 L ABG pO2 76.2 L ABG HCO3 15.7 L ABG O2 Saturation 95.1 ABG Base Excess -7.9 FiO2 3L Sodium 136.7 L Potassium 5.1 H Chloride 101 Carbon Dioxide 18 L Anion Gap 18 BUN 15 Creatinine 1.37 H Est GFR ( Amer) > 60 Glucose 297 H Calcium 9.4 Total Bilirubin 0.9 AST 31 Alkaline Phosphatase 91 Total Protein 7.6 Albumin 3.9 Impressions: Chest X-Ray 03/18/19 12:33 IMPRESSION: Findings of fibrotic interstitial lung disease with a suspected superimposed left lower lobe consolidation. Assessment and Plan - Diagnosis (1) Community acquired bacterial pneumonia Is this a current diagnosis for this admission?: Yes Plan: Chest x-ray image reviewed by me which shows a lot of interstitial opacities. There may be some superimposed pneumonia especially given leukocytosis. I will get a chest CT for clearer delineation between fibrotic changes and true underlying pneumonia In the meantime, will treat as bacterial pneumonia especially excessive sputum production. Patient is high risk for Pseudomonas so I will cover with cefepime and azithromycin Follow-up blood cultures and sputum cultures. (2) Idiopathic pulmonary fibrosis Is this a current diagnosis for this admission?: Yes Plan: Recently diagnosed in May 2018. Status post trial of nintedanib without much help. Ultimately, patient will require lung transplantation which he is following up with [facility]. Oxygen supplementation as needed. (3) Acute and chronic respiratory failure with hypoxia Is this a current diagnosis for this admission?: Yes Plan: Likely secondary to problem #2. Will monitor to see if improvement with treatment of pneumonia however I do doubt significant improvement given patient's underlying IPF If no improvement with treatment of pneumonia, will check to see if patient qualifies for home oxygen. (4) Diabetes mellitus type 2 in nonobese Is this a current diagnosis for this admission?: Yes Plan: Resume patient's Lantus 50 units nightly and sliding scale. Monitor Accu-Cheks AC at bedtime. (5) Hypertension Qualifiers: Hypertension type: essential hypertension Is this a current diagnosis for this admission?: Yes Plan: Resume antihypertensives (6) Lightheadedness Is this a current diagnosis for this admission?: Yes Plan: Check orthostatic vitals Check for improvement with IV fluids especially in light of patient's JACKELYN However I do wonder if patient may have a component of pulmonary hypertension from his IPF and COPD and may be contributing to his symptoms. I will check an echocardiogram for RVSP (7) JACKELYN (acute kidney injury) Is this a current diagnosis for this admission?: Yes Plan: Creatinine significantly elevated over patient's baseline. We will give IV fluids and check response of creatinine. - Time Time Spent with patient: 35 or more minutes
[2019-03-18] MEDS ORDERED: NORMAL SALINE 1000 ML 1,000 ML IV ONE (17:45)
[2019-03-18] MEDS ORDERED: LORAZEPAM INJ 2 MG/1 ML VIAL IV PRN (18:35)
--- NOTE | 2019-03-18 18:40 | RADIOLOGY REPORT (SQ) ---
EXAM DESCRIPTION: CT CHEST WITHOUT COMPLETED DATE/TIME: 03/18/2019 6:13 pm REASON FOR STUDY: Hypoxia COMPARISON: Chest CT 04/22/2018 TECHNIQUE: CT scan performed of the chest without intravenous contrast. Images reviewed with lung, soft tissue and bone windows. Reconstructed coronal and sagittal MPR images reviewed. All images st ored on PACS. All CT scanners at this facility use dose modulation, iterative reconstruction, and/or weight based d osing when appropriate to reduce radiation dose to as low as reasonably achievable (ALARA). [facility]: Dose Right [facility]: CareDose [facility]: Dose Right [facility]: Teradose 4D [facility]: [employer] RADIATION DOSE: CT Rad equipment meets quality standard of care and radiation dose reduction techniq ues were employed. CTDIvol: 15.5 mGy. DLP: 564 mGy-cm. mGy. LIMITATIONS: No technical limitations. FINDINGS: LUNGS AND PLEURA: Re- demonstration of honeycomb appearance demonstrating a peripheral pre dilection with superimposed ground-glass opacities on today's examination. No pneumothorax or pleura l effusions. HILAR AND MEDIASTINAL STRUCTURES: Multiple mediastinal lymph nodes characterized on prior CT imaging appear larger on today's examination. HEART AND VASCULAR STRUCTURES: No aneurysm. No pericardial effusion. Coronary artery calcifications are again noted. The main pulmonary arteries appear increase in size on today's examination. UPPER ABDOMEN: No significant findings. Limited exam. THYROID AND OTHER SOFT TISSUES: No masses. No adenopathy. BONES: No significant finding. HARDWARE: None in the chest. OTHER: No other significant findings. IMPRESSION: Interval development of ground-glass opacities superimposed upon peripheral honeycomb ap pearance may represent progression in pulmonary fibrosis/UIP. Given concomitant appearance of increa se in mediastinal lymphadenopathy and pulmonary artery hypertension, differential considerations incl ude developing CHF exacerbation, atypical infection, or less likely, neoplasm. TECHNICAL DOCUMENTATION: JOB ID: [id number] Quality ID # [id number]: Final reports with documentation of one or more dose reduction techniques (e.g., Au tomated exposure control, adjustment of the mA and/or kV according to patient size, use of iterative reconstruction technique) 2010 [employer]- All Rights Reserved Reading location - IP/workstation name: [email or web address]
[2019-03-18] MEDS ORDERED: DIAZEPAM INJ 10 MG/2 ML DISP.SYRIN IV ONE (20:30)
[2019-03-18] MEDS ORDERED: CEFEPIME 2 GM/D5W RTU 50 ML IV SCH (22:00)
[2019-03-18 22:49] LABS: ARTERIAL BLOOD BASE EXCESS -4.4 mmol/L; ARTERIAL BLOOD H2CO3 0.94 mmol/L (1.05-1.35); ARTERIAL BLOOD HCO3 19.2 mmol/L (20-24); ARTERIAL BLOOD O2 SATURATION 97.6 % (94-98); ARTERIAL BLOOD PCO2 31.3 mmHg (35-45); ARTERIAL BLOOD PH 7.41 (7.35-7.45); ARTERIAL BLOOD PO2 98.6 mmHg (80-100); ARTERIAL BLOOD TOTAL CO2 20.2 mmol/L (23-27)
[2019-03-18] MEDS: INSULIN LISPRO 100 UNIT/ML 3 ML VIAL SUBCUT SCH (22:50)
[2019-03-18] MEDS: INSULIN GLARGINE,HUM.REC.ANLOG 1,000 UNIT/10 ML VIAL SUBCUT SCH (22:50)
[2019-03-18] MEDS: HEPARIN SOD (PORCINE) 5,000 UNIT/ML 1 ML VIAL SUBCUT SCH (22:50)
[2019-03-18 22:51] LABS: ARTERIAL BLOOD FIO2 35%
[2019-03-18] MEDS: CEFEPIME HCL 2 GM in DEXTROSE 5%-WATER 50 ML IV SCH (23:01)
[2019-03-19 05:48] LABS: ABSOLUTE BASOPHILS # (AUTO) 0.1 10^3/uL (0.0-0.2); ABSOLUTE EOSINOPHILS # (AUTO) 0.4 10^3/uL (0.0-0.6); ABSOLUTE LYMPHOCYTES (AUTO) 2.9 10^3/uL (0.5-4.7); ABSOLUTE MONOCYTES (AUTO) 0.6 10^3/uL (0.1-1.4); ABSOLUTE NEUT (AUTO) 7.2 10^3/uL (1.7-8.2); BASOPHILS % (AUTO) 0.8 % (0-2); HEMOGLOBIN 13.1 g/dL (13.5-17.0); MEAN CORPUSCULAR HEMOGLOBIN 30.8 pg (27.0-33.4); MEAN CORPUSCULAR HGB CONC 33.7 g/dL (32.0-36.0); MEAN CORPUSCULAR VOLUME 91 fl (80-97); MONOCYTES % (AUTO) 5.4 % (3-13); PLATELET COUNT 345 10^3/uL (150-450); RED BLOOD COUNT 4.27 10^6/uL (4.35-5.55); RED CELL DISTRIBUTION WIDTH 13.1 % (11.5-14.0); SEGMENTED NEUTROPHILS % (AUTO) 63.8 % (42-78); TOTAL CELLS COUNTED % (AUTO) 100 %; WHITE BLOOD COUNT 11.2 10^3/uL (4.0-10.5)
[2019-03-19 06:11] LABS: ANION GAP 11 (5-19); BLOOD UREA NITROGEN 17 mg/dL (7-20); CALCIUM 8.9 mg/dL (8.4-10.2); CARBON DIOXIDE 26 mmol/L (22-30); CHLORIDE 103 mmol/L (98-107); POTASSIUM 4.3 mmol/L (3.6-5.0)
[2019-03-19 06:13] LABS: GLUCOSE 44 mg/dL (75-110)
[2019-03-19] MEDS: HEPARIN SOD (PORCINE) 5,000 UNIT/ML 1 ML VIAL SUBCUT SCH ×3 (06:43→22:46)
[2019-03-19] MEDS: INSULIN LISPRO 100 UNIT/ML 3 ML VIAL SUBCUT SCH ×4 (09:02→22:35)
--- NOTE | 2019-03-19 09:24 | XCELERA REPORT ---
[address] [address] Transthoracic Echocardiogram Report Name: KIARRA DELONG Age: 63 yrs Gender: Male : 1955 Patient Status: Inpatient Patient Location: [place] [address]^A Study Date: 03/18/2019 07:15 PM Height: 72 in Weight: 200 lb BSA: 2.1 m2 Procedure: A complete two-dimensional transthoracic echocardiogram was performed (2D, M-mode, spectral and color flow Doppler). The study was technically difficult with many images being suboptimal in quality. Reason For Study: sob, orthostasis, ?pulm hypertension Ordering Physician: MARGARETTE MOSLEY Performed By: Yaritza Morin Interpretation Summary The left ventricular ejection fraction is normal. The right ventricle is moderate to severely dilated. The right ventricular systolic function is moderately reduced. The left ventricular cavity is small. There is mild concentric left ventricular hypertrophy. LV diastolic function could not be adequately assessed. Wall motion cannot be accurately commented on, but no definite regional wall motion abnormalities noted. The left atrial size is normal. The right atrium is moderately dilated. There is a mild amount of mitral regurgitation There is no mitral valve stenosis. There is a trace amount of aortic regurgitation There is no aortic valve stenosis There is moderate to severe pulmonary hypertension by echo Right ventricular systolic pressure is estimated to be elevated at 50-60mmHg. There is a mild to moderate amount of tricuspid regurgitation The inferior vena cava appeared normal and decreased > 50% with respiration (RAP 5-10 mmHg) There is no pericardial effusion. MMode/2D Measurements & Calculations RVDd: 2.9 cm LVIDd: 3.3 cm FS: 31.1 % Ao root diam: 3.2 cm IVSd: 1.2 cm LVIDs: 2.3 cm EDV(Teich): 45.3 ml Ao root area: 8.2 cm2 LVPWd: 1.0 cm ESV(Teich): 18.1 ml LA dimension: 3.1 cm EF(Teich): 60.1 % Doppler Measurements & Calculations MV E max wilmer: MV P1/2t max wilmer: Ao V2 max: LV V1 max P.8 cm/sec 74.7 cm/sec 99.9 cm/sec 2.3 mmHg MV A max wilmer: MV P1/2t: 46.4 msec Ao max PG: LV V1 max: 97.7 cm/sec MVA(P1/2t): 4.7 cm2 4.0 mmHg 75.0 cm/sec MV E/A: 0.54 MV dec slope: 471.2 cm/sec2 MV dec time: 0.17 sec PA V2 max: PI end-d wilmer: TR max wilmer: MV P1/2t-pr_phl: 67.9 cm/sec 183.2 cm/sec 336.5 cm/sec 46.4 msec PA max PG: TR max P.8 mmHg 45.3 mmHg Left Ventricle The left ventricular cavity is small. There is mild concentric left ventricular hypertrophy. The left ventricular ejection fraction is normal. LV diastolic function could not be adequately assessed. Wall motion cannot be accurately commented on, but no definite regional wall motion abnormalities noted. Right Ventricle The right ventricle is moderate to severely dilated. The right ventricular systolic function is moderately reduced. Atria The right atrium is moderately dilated. The left atrial size is normal. Interarterial septum not well visualized and not well dopplered. Cannot comment on ASD/PFO presence. Mitral Valve The mitral valve leaflets are sclerotic, but show no functional abnormalities. There is no mitral valve stenosis. There is a mild amount of mitral regurgitation. Aortic Valve The aortic valve is grossly normal. There is no aortic valve stenosis. There is a trace amount of aortic regurgitation. Tricuspid Valve The tricuspid valve is not well visualized secondary to technical limitations. There is no tricuspid stenosis. There is a mild to moderate amount of tricuspid regurgitation. Right ventricular systolic pressure is estimated to be elevated at 50-60mmHg. There is moderate to severe pulmonary hypertension by echo. Pulmonic Valve The pulmonic valve is not well visualized. Great Vessels The aortic root is not well visualized. The inferior vena cava appeared normal and decreased > 50% with respiration (RAP 5-10 mmHg). Effusions There is no pericardial effusion. : MARGARETTE MOSLEY Shyamal
--- NOTE | 2019-03-19 09:28 | EKG REPORT ---
SEVERITY:- ABNORMAL ECG - SINUS RHYTHM LEFT ATRIAL ABNORMALITY LEFT POSTERIOR FASCICULAR BLOCK NONSPECIFIC T ABNORMALITIES, ANTERIOR LEADS : Confirmed by: Ute Tyson 19-Mar-2019 09:28:02
[2019-03-19] MEDS: CEFEPIME HCL 2 GM in DEXTROSE 5%-WATER 50 ML IV SCH ×2 (10:14→22:49)
--- NOTE | 2019-03-19 11:12 | PDOC PROGRESS REPORT ---
Subjective Progress Note for:: 03/19/19 Subjective:: Patient was short of breath and nauseous yesterday. Received some Valium which help patient calm down. Today patient is at ease still has his chronic shortness of breath. Reason For Visit: PNEUOMONIA, PULM FIBROSIS Physical Exam Vital Signs: Temp Pulse Resp BP Pulse Ox 97.6 F 95 33 H 125/74 98 03/19/19 07:12 03/19/19 07:12 03/19/19 08:48 03/19/19 07:12 03/19/19 08:48 Pulse Oximeter Continuous Start: 03/18/19 17:07 Freq: RTQ4 Status: Active Protocol: Document 03/19/19 08:48 JDR (Rec: 03/19/19 08:50 [id number]) Pulse Oximetry Assessment Oxygen Saturation (92-100) 98 Oxygen Delivery Method Bi-pap Fraction of Inspired Oxygen (FIO2) 50 Equipment Usage Equipment in Use Continuous SpO2 Machine # 9 Intake & Output 03/18/19 03/19/19 03/20/19 06:59 06:59 06:59 Intake Total 1050 Balance 1050 Weight 92 kg General appearance: PRESENT: no acute distress, cooperative Respiratory exam: PRESENT: crackles, rhonchi, symmetrical, tachypnea, unlabored. ABSENT: wheezes Cardiovascular exam: PRESENT: RRR, +S1, +S2. ABSENT: tachycardia GI/Abdominal exam: PRESENT: normal bowel sounds, soft. ABSENT: guarding, rebound, rigid, tenderness Neurological exam: PRESENT: alert, awake, oriented to person, oriented to place, oriented to time, oriented to situation Psychiatric exam: PRESENT: anxious Results Laboratory Results: 03/19/19 05:10 03/19/19 05:10 03/18/19 03/18/19 03/18/19 12:48 12:48 12:52 WBC 18.9 H RBC 4.83 Hgb 14.8 Hct 44.6 MCV 92 MCH 30.7 MCHC 33.2 RDW 13.3 Plt Count 446 Seg Neutrophils % 80.5 H Carbonic Acid 0.84 L HCO3/H2CO3 Ratio 18:1 ABG pH 7.37 ABG pCO2 28.0 L ABG pO2 76.2 L ABG HCO3 15.7 L ABG O2 Saturation 95.1 ABG Base Excess -7.9 FiO2 3L Sodium 136.7 L Potassium 5.1 H Chloride 101 Carbon Dioxide 18 L Anion Gap 18 BUN 15 Creatinine 1.37 H Est GFR ( Amer) > 60 Glucose 297 H Calcium 9.4 Total Bilirubin 0.9 AST 31 Alkaline Phosphatase 91 Total Protein 7.6 Albumin 3.9 03/18/19 03/19/19 03/19/19 22:31 05:10 05:10 WBC 11.2 H RBC 4.27 L Hgb 13.1 L Hct 39.0 MCV 91 MCH 30.8 MCHC 33.7 RDW 13.1 Plt Count 345 Seg Neutrophils % 63.8 Carbonic Acid 0.94 L HCO3/H2CO3 Ratio 20:1 ABG pH 7.41 ABG pCO2 31.3 L ABG pO2 98.6 ABG HCO3 19.2 L ABG O2 Saturation 97.6 ABG Base Excess -4.4 FiO2 35% Sodium 139.7 Potassium 4.3 Chloride 103 Carbon Dioxide 26 Anion Gap 11 BUN 17 Creatinine 1.03 Est GFR ( Amer) > 60 Glucose 44 L Calcium 8.9 Total Bilirubin AST Alkaline Phosphatase Total Protein Albumin 03/18/19 17:03 Blood Blood Culture (PCR) - Final Staphylococcus Species Streptococcus Species 03/19/19 05:10 NT-Pro-B Natriuret Pep 3880 H Impressions: Chest CT 03/18/19 00:00 IMPRESSION: Interval development of ground-glass opacities superimposed upon peripheral honeycomb appearance may represent progression in pulmonary fibrosis/UIP. Given concomitant appearance of increase in mediastinal lymphadenopathy and pulmonary artery hypertension, differential considerations include developing CHF exacerbation, atypical infection, or less likely, neoplasm. Chest X-Ray 03/18/19 12:33 IMPRESSION: Findings of fibrotic interstitial lung disease with a suspected superimposed left lower lobe consolidation. Assessment and Plan - Diagnosis (1) Cor pulmonale Is this a current diagnosis for this admission?: Yes Plan: Acuity unknown but likely chronic Secondary to type III pulmonary hypertension from idiopathic pulmonary fibrosis Echocardiogram showing significantly dilated right ventricle with impaired right ventricular systolic function and RVSP 50-60mmhg with small LV cavity. Ultimately patient will require more extensive pulmonary evaluation and lung transplant. I will discuss further with patient regarding his current transplant evaluation at [facility]. Palliative care consulted (2) Moderate to severe pulmonary hypertension Is this a current diagnosis for this admission?: Yes Plan: Likely Type III pulmonary hypertension secondary to IPF Questionable if at all patient will benefit from sildenafil but medical literature indicates that this would unlikely improve patient's mortality. plan as above (3) Acute and chronic respiratory failure with hypoxia Is this a current diagnosis for this admission?: Yes Plan: Likely mostly secondary to idiopathic pulmonary fibrosis and cor pulmonale. Some effect from pneumonia. Currently having high oxygen requirements. Informed by nurse that patient was satting mid 80s on Ventimask of 50% FiO2 Will place on high flow nasal cannula to keep SPO2 88% Will monitor to see if improvement with treatment of pneumonia however I do doubt significant improvement given patient's underlying IPF (4) Idiopathic pulmonary fibrosis Is this a current diagnosis for this admission?: Yes Plan: Recently diagnosed in May 2018. Status post trial of nintedanib without much help. Ultimately, patient will require lung transplantation which he is following up with [facility]. Palliative care consult placed (5) Community acquired bacterial pneumonia Is this a current diagnosis for this admission?: Yes Plan: Chest CT showing significant pulmonary fibrosis with some underlying pneumonia Patient is high risk for Pseudomonas given structural lung disease cefepime and azithromycin day 2 Follow-up blood cultures and sputum cultures. (6) Diabetes mellitus type 2 in nonobese Is this a current diagnosis for this admission?: Yes Plan: Resume patient's Lantus 50 units nightly and sliding scale. Monitor Accu-Cheks AC at bedtime. (7) JACKELYN (acute kidney injury) Is this a current diagnosis for this admission?: Yes Plan: Resolved (8) Anxiety Is this a current diagnosis for this admission?: Yes Plan: Patient gets very anxious about his respiratory status and panics about this often. This further drives him to hyperventilate on several occasions PRN Valium Starting on a small dose of escitalopram - Time Time Spent with patient: 15-24 minutes
[2019-03-19] MEDS ORDERED: HYDROXYZINE PAMOATE 50 MG CAPSULE PO PRN (11:19)
[2019-03-19] MEDS ORDERED: AMLODIPINE BESYLATE 5 MG TABLET PO SCH (11:30)
[2019-03-19] MEDS: DIAZEPAM 5 MG TABLET PO PRN (14:23)
[2019-03-19] MEDS: TOPIRAMATE 100 MG TABLET PO SCH (14:23)
[2019-03-19] MEDS: ALBUTEROL SULFATE HFA (90 MCG/PUFF) 200 PUFF/8.5 GM MDI IH PRN (14:26)
[2019-03-19] MEDS ORDERED: VANCOMYCIN HCL INJ 1000 MG VIAL IV SCH (16:30)
--- NOTE | 2019-03-19 16:36 | ADVANCED CARE ---
- Diagnosis (1) Cor pulmonale Diagnosis Current: Yes (2) Moderate to severe pulmonary hypertension Diagnosis Current: Yes (3) Acute and chronic respiratory failure with hypoxia Diagnosis Current: Yes (4) Idiopathic pulmonary fibrosis Diagnosis Current: Yes Attendance: Patient, patient's and myself. Resuscitation Status: Full Code Discussion: Referrals discussed with patient and patient's understanding of patient's current conditions. I explained to them the significance and likely progression of patient's condition. We discussed patient's idiopathic pulmonary fibrosis and his hypoxic respiratory failure. We also discussed the fact that patient is likely experiencing right heart failure secondary to pulmonary hypertension secondary to IPF. We discussed the irreversibility of patient's IPF and the potential that even with treatment of patient's current pneumonia that patient may still require oxygen if he is IPF has progressed and that this condition will likely keep progressing with a right-sided failure and a dual effect will be lung transplantation. Patient has a scheduled appointment with [facility] lung transplant center for evaluation for lung transplantation candidacy for next month. We discussed CODE STATUS and as of now patient and his are maintaining full code but would like to discuss things further as they have not had an opportunity to really ponder over this. They have opted for full treatment for now but are very much open to speaking to palliative care. Arina singletonbecki does state that he would not like prolonged ventilation support if that should be the case post intubation. Patient and will discuss the contents of our discussion further and will inform me if any changes in her decision. Document(s) Completed: None Time Spent: 30 minutes
[2019-03-19] MEDS: AZITHROMYCIN 500 MG in DEXTROSE 5%-WATER 250 ML IV SCH (17:57)
[2019-03-19] MEDS ORDERED: VANCOMYCIN HCL INJ 1000 MG VIAL ONE (19:01)
[2019-03-19] MEDS: VANCOMYCIN HCL 1,000 MG in DEXTROSE 5%-WATER 250 ML IV SCH (19:16)
[2019-03-19] MEDS: INSULIN GLARGINE,HUM.REC.ANLOG 1,000 UNIT/10 ML VIAL SUBCUT SCH (22:42)
[2019-03-19] MEDS: METOPROLOL TARTRATE 25 MG TABLET PO SCH (22:44)
[2019-03-19] MEDS: NORTRIPTYLINE HCL 25 MG CAPSULE PO SCH (22:48)
[2019-03-20] MEDS ORDERED: VANCOMYCIN HCL INJ 1000 MG VIAL ONE (04:42)
[2019-03-20] MEDS: HEPARIN SOD (PORCINE) 5,000 UNIT/ML 1 ML VIAL SUBCUT SCH ×3 (06:00→22:33)
[2019-03-20 06:01] LABS: ABSOLUTE BASOPHILS # (AUTO) 0.1 10^3/uL (0.0-0.2); ABSOLUTE EOSINOPHILS # (AUTO) 0.5 10^3/uL (0.0-0.6); ABSOLUTE LYMPHOCYTES (AUTO) 2.7 10^3/uL (0.5-4.7); ABSOLUTE MONOCYTES (AUTO) 0.7 10^3/uL (0.1-1.4); ABSOLUTE NEUT (AUTO) 6.4 10^3/uL (1.7-8.2); BASOPHILS % (AUTO) 1.1 % (0-2); EOSINOPHILS % (AUTO) 4.6 % (0-6); HEMATOCRIT 38.4 % (37.9-51.0); HEMOGLOBIN 13.1 g/dL (13.5-17.0); LYMPHOCYTES % (AUTO) 26.1 % (13-45); MEAN CORPUSCULAR HEMOGLOBIN 31.1 pg (27.0-33.4); MEAN CORPUSCULAR HGB CONC 34.1 g/dL (32.0-36.0); MEAN CORPUSCULAR VOLUME 91 fl (80-97); MONOCYTES % (AUTO) 6.3 % (3-13); PLATELET COUNT 350 10^3/uL (150-450); RED BLOOD COUNT 4.22 10^6/uL (4.35-5.55); RED CELL DISTRIBUTION WIDTH 13.1 % (11.5-14.0); SEGMENTED NEUTROPHILS % (AUTO) 61.9 % (42-78); TOTAL CELLS COUNTED % (AUTO) 100 %; WHITE BLOOD COUNT 10.3 10^3/uL (4.0-10.5)
[2019-03-20] MEDS: PANTOPRAZOLE SODIUM 20 MG TABLET.DR PO SCH (06:01)
[2019-03-20] MEDS: VANCOMYCIN HCL 1,000 MG in DEXTROSE 5%-WATER 250 ML IV SCH (06:01)
[2019-03-20 06:34] LABS: ANION GAP 11 (5-19); BLOOD UREA NITROGEN 12 mg/dL (7-20); CALCIUM 9.1 mg/dL (8.4-10.2); CARBON DIOXIDE 23 mmol/L (22-30); CHLORIDE 106 mmol/L (98-107); POTASSIUM 3.7 mmol/L (3.6-5.0)
[2019-03-20 06:42] LABS: GLUCOSE 54 mg/dL (75-110)
[2019-03-20] MEDS: INSULIN LISPRO 100 UNIT/ML 3 ML VIAL SUBCUT SCH ×4 (07:27→22:33)
--- NOTE | 2019-03-20 10:08 | PDOC PROGRESS REPORT ---
Subjective Progress Note for:: 03/20/19 Subjective:: Patient still feels short of breath. Informed by staff that patient often desats when patient gets up and starts walking. He has tachypneic doing so as well. Patient denies any chest pain. Still coughing. Reason For Visit: PNEUOMONIA, PULM FIBROSIS Physical Exam Vital Signs: Temp Pulse Resp BP Pulse Ox 98.2 F 87 26 H 98/66 L 99 03/20/19 07:20 03/20/19 07:20 03/20/19 09:10 03/20/19 07:20 03/20/19 09:10 Pulse Oximeter Continuous Start: 03/18/19 17:07 Freq: RTQ4 Status: Active Protocol: Document 03/20/19 09:10 JDR (Rec: 03/20/19 09:11 [id number] [id number]) Pulse Oximetry Assessment Oxygen Saturation (92-100) 99 Oxygen Delivery Method High Flow Nasal Cannula Fraction of Inspired Oxygen (FIO2) 40 Equipment Usage Equipment in Use Continuous SpO2 Machine # 9 Additional RT Notes Other flow rate decrased to 40% and spo2 remains at 99% Intake & Output 03/19/19 03/20/19 03/21/19 06:59 06:59 06:59 Intake Total 1050 700 Balance 1050 700 Weight 92 kg 92.1 kg General appearance: PRESENT: no acute distress, cooperative Head exam: PRESENT: normocephalic Respiratory exam: PRESENT: crackles, symmetrical, tachypnea, unlabored. ABSENT: wheezes Cardiovascular exam: PRESENT: RRR, +S1, +S2. ABSENT: tachycardia GI/Abdominal exam: PRESENT: normal bowel sounds, soft. ABSENT: rebound, rigid, tenderness Neurological exam: PRESENT: alert, awake, oriented to person, oriented to place, oriented to time, oriented to situation Results Laboratory Results: 03/20/19 05:30 03/20/19 05:30 03/20/19 03/20/19 05:30 05:30 WBC 10.3 RBC 4.22 L Hgb 13.1 L Hct 38.4 MCV 91 MCH 31.1 MCHC 34.1 RDW 13.1 Plt Count 350 Seg Neutrophils % 61.9 Sodium 140.3 Potassium 3.7 Chloride 106 Carbon Dioxide 23 Anion Gap 11 BUN 12 Creatinine 0.72 Est GFR ( Amer) > 60 Glucose 54 L Calcium 9.1 03/18/19 17:03 Blood Blood Culture (PCR) - Final Staphylococcus Species Streptococcus Species 03/19/19 05:10 NT-Pro-B Natriuret Pep 3880 H Impressions: Chest CT 03/18/19 00:00 IMPRESSION: Interval development of ground-glass opacities superimposed upon peripheral honeycomb appearance may represent progression in pulmonary fibrosis/UIP. Given concomitant appearance of increase in mediastinal lymphadenopathy and pulmonary artery hypertension, differential considerations include developing CHF exacerbation, atypical infection, or less likely, neoplasm. Chest X-Ray 03/18/19 12:33 IMPRESSION: Findings of fibrotic interstitial lung disease with a suspected superimposed left lower lobe consolidation. Assessment and Plan - Diagnosis (1) Acute and chronic respiratory failure with hypoxia Is this a current diagnosis for this admission?: Yes Plan: Likely mostly secondary to idiopathic pulmonary fibrosis and cor pulmonale. Some effect from pneumonia. Currently having high oxygen requirements. Informed by nurse that patient was satting mid 80s on Ventimask of 50% FiO2 Will place on high flow nasal cannula to keep SPO2 > 88% Will monitor to see if improvement with treatment of pneumonia or if hypoxia is mostly from patient's underlying IPF 03/20/2019-patient is tolerating high flow nasal cannula at FiO2 of 40% and flow of 55. SPO2 in the mid 90s. Will attempt to wean FiO2 today. (2) Cor pulmonale Is this a current diagnosis for this admission?: Yes Plan: Acuity unknown but likely chronic Secondary to type III pulmonary hypertension from idiopathic pulmonary fibrosis Echocardiogram showing significantly dilated right ventricle with impaired right ventricular systolic function and RVSP 50-60mmhg with small LV cavity. Mainstay of treatment involves management of lung disease Palliative care consulted (3) Moderate to severe pulmonary hypertension Is this a current diagnosis for this admission?: Yes Plan: Likely Type III pulmonary hypertension secondary to IPF Questionable if at all patient will benefit from sildenafil but medical literature indicates that this would unlikely improve patient's mortality. (4) Idiopathic pulmonary fibrosis Is this a current diagnosis for this admission?: Yes Plan: Recently diagnosed in May 2018. Status post trial of nintedanib without much help. Ultimately, patient will require lung transplantation which is the only thing proven to have mortality benefit patient's condition. Patient is scheduled at [facility] for transplant evaluation next month. Palliative care consulted (5) Community acquired bacterial pneumonia Is this a current diagnosis for this admission?: Yes Plan: Chest CT showing significant pulmonary fibrosis with some underlying pneumonia Patient is high risk for Pseudomonas given structural lung disease cefepime and azithromycin day 3 Vancomycin added to broaden coverage given persistence of significant hypoxia. Vancomycin day 2 Continue to follow blood cultures and sputum cultures. (6) Diabetes mellitus type 2 in nonobese Is this a current diagnosis for this admission?: Yes Plan: Monitor Accu-Cheks with sliding scale AC at bedtime. Reduce Lantus to 30 units nightly from 50 given a.m. hypoglycemia (7) Anxiety Is this a current diagnosis for this admission?: Yes Plan: Patient gets very anxious about his respiratory status and panics about this often. This further drives him to hyperventilate on several occasions and subsequently desaturates. Started on PRN Valium Continue patient's nortriptyline and hydroxyzine - Time Time Spent with patient: Less than 15 minutes
[2019-03-20] MEDS: CEFEPIME HCL 2 GM in DEXTROSE 5%-WATER 50 ML IV SCH ×2 (10:22→22:37)
[2019-03-20] MEDS: FLUTICASONE/VILANTEROL 100-25 MCG/DOSE IH SCH (11:17)
[2019-03-20] MEDS: TOPIRAMATE 100 MG TABLET PO SCH (11:17)
[2019-03-20] MEDS: ASPIRIN 81 MG TABLET, ENT COATED PO SCH (11:18)
[2019-03-20] MEDS: LORATADINE 10 MG TABLET PO SCH (11:18)
[2019-03-20] MEDS: LISINOPRIL 10 MG TABLET PO SCH (11:18)
[2019-03-20] MEDS: METOPROLOL TARTRATE 25 MG TABLET PO SCH ×2 (11:18→22:34)
[2019-03-20] MEDS: ALBUTEROL SULFATE HFA (90 MCG/PUFF) 200 PUFF/8.5 GM MDI IH PRN (12:52)
[2019-03-20] MEDS: DIAZEPAM 5 MG TABLET PO PRN (12:56)
[2019-03-20] MEDS: VANCOMYCIN HCL 1,250 MG in DEXTROSE 5%-WATER 250 ML IV SCH ×2 (13:06→22:38)
[2019-03-20] MEDS: AZITHROMYCIN 500 MG in DEXTROSE 5%-WATER 250 ML IV SCH (17:17)
[2019-03-20 18:15] LABS: ARTERIAL BLOOD BASE EXCESS -1.8 mmol/L; ARTERIAL BLOOD H2CO3 1.01 mmol/L (1.05-1.35); ARTERIAL BLOOD HCO3 21.8 mmol/L (20-24); ARTERIAL BLOOD O2 SATURATION 95.3 % (94-98); ARTERIAL BLOOD PCO2 33.4 mmHg (35-45); ARTERIAL BLOOD PH 7.43 (7.35-7.45); ARTERIAL BLOOD PO2 73.3 mmHg (80-100); ARTERIAL BLOOD TOTAL CO2 22.8 mmol/L (23-27)
[2019-03-20] MEDS ORDERED: HYDROXYZINE PAMOATE 50 MG CAPSULE PO PRN (18:30)
[2019-03-20] MEDS: INSULIN GLARGINE,HUM.REC.ANLOG 1,000 UNIT/10 ML VIAL SUBCUT SCH (22:34)
[2019-03-20] MEDS: NORTRIPTYLINE HCL 25 MG CAPSULE PO SCH (22:38)
[2019-03-21 05:13] LABS: ABSOLUTE BASOPHILS # (AUTO) 0.1 10^3/uL (0.0-0.2); ABSOLUTE EOSINOPHILS # (AUTO) 0.4 10^3/uL (0.0-0.6); ABSOLUTE LYMPHOCYTES (AUTO) 1.6 10^3/uL (0.5-4.7); ABSOLUTE MONOCYTES (AUTO) 0.6 10^3/uL (0.1-1.4); ABSOLUTE NEUT (AUTO) 7.1 10^3/uL (1.7-8.2); BASOPHILS % (AUTO) 1.1 % (0-2); EOSINOPHILS % (AUTO) 4.1 % (0-6); HEMATOCRIT 37.2 % (37.9-51.0); HEMOGLOBIN 12.9 g/dL (13.5-17.0); LYMPHOCYTES % (AUTO) 16.7 % (13-45); MEAN CORPUSCULAR HEMOGLOBIN 31.2 pg (27.0-33.4); MEAN CORPUSCULAR HGB CONC 34.5 g/dL (32.0-36.0); MEAN CORPUSCULAR VOLUME 90 fl (80-97); MONOCYTES % (AUTO) 5.7 % (3-13); PLATELET COUNT 344 10^3/uL (150-450); RED BLOOD COUNT 4.12 10^6/uL (4.35-5.55); SEGMENTED NEUTROPHILS % (AUTO) 72.4 % (42-78); TOTAL CELLS COUNTED % (AUTO) 100 %; WHITE BLOOD COUNT 9.8 10^3/uL (4.0-10.5)
[2019-03-21 05:34] LABS: ANION GAP 12 (5-19); BLOOD UREA NITROGEN 11 mg/dL (7-20); CARBON DIOXIDE 24 mmol/L (22-30); CHLORIDE 103 mmol/L (98-107); GLUCOSE 114 mg/dL (75-110); POTASSIUM 3.7 mmol/L (3.6-5.0)
[2019-03-21] MEDS: PANTOPRAZOLE SODIUM 20 MG TABLET.DR PO SCH (05:35)
[2019-03-21] MEDS: VANCOMYCIN HCL 1,250 MG in DEXTROSE 5%-WATER 250 ML IV SCH ×3 (05:35→22:15)
[2019-03-21] MEDS: HEPARIN SOD (PORCINE) 5,000 UNIT/ML 1 ML VIAL SUBCUT SCH ×3 (05:35→22:36)
--- NOTE | 2019-03-21 09:29 | RADIOLOGY REPORT (SQ) ---
EXAM DESCRIPTION: CHEST SINGLE VIEW COMPLETED DATE/TIME: 03/21/2019 9:13 am REASON FOR STUDY: worsening hypoxia COMPARISON: Chest films 07/22/2007, 03/18/2019 CT chest 04/22/2018, 03/18/2019 EXAM PARAMETERS: NUMBER OF VIEWS: One view. TECHNIQUE: Single frontal radiographic view of the chest acquired. RADIATION DOSE: NA LIMITATIONS: None. FINDINGS: LUNGS AND PLEURA: End-stage appearance of pulmonary fibrosis with dense reticular intersti tial opacities throughout both lungs left greater than right, similar compared to March 2018. No acute superimposed infiltrate, no pleural effusion. No pneumothorax. MEDIASTINUM AND HILAR STRUCTURES: No masses. Contour normal. HEART AND VASCULAR STRUCTURES: No cardiomegaly. Prominent central pulmonary arteries from pulmonary hypertension BONES: No acute findings. HARDWARE: None in the chest. OTHER: No other significant finding. IMPRESSION: Dense reticular interstitial opacities throughout both lungs worrisome for advanced pulm onary fibrosis. Overall pattern is similar compared to March 2018 TECHNICAL DOCUMENTATION: JOB ID: [id number] [employer]- All Rights Reserved Reading location - IP/workstation name: [email or web address]
[2019-03-21] MEDS: INSULIN LISPRO 100 UNIT/ML 3 ML VIAL SUBCUT SCH ×4 (10:00→22:14)
[2019-03-21] MEDS: FLUTICASONE/VILANTEROL 100-25 MCG/DOSE IH SCH (10:01)
[2019-03-21] MEDS: METOPROLOL TARTRATE 25 MG TABLET PO SCH ×2 (10:02→22:14)
[2019-03-21] MEDS: ASPIRIN 81 MG TABLET, ENT COATED PO SCH (10:02)
[2019-03-21] MEDS: LISINOPRIL 10 MG TABLET PO SCH (10:02)
[2019-03-21] MEDS: LORATADINE 10 MG TABLET PO SCH (10:02)
[2019-03-21] MEDS: TOPIRAMATE 100 MG TABLET PO SCH (10:04)
[2019-03-21] MEDS: CEFEPIME HCL 2 GM in DEXTROSE 5%-WATER 50 ML IV SCH ×2 (10:06→22:16)
--- NOTE | 2019-03-21 12:02 | PDOC PROGRESS REPORT ---
Subjective Progress Note for:: 03/21/19 Subjective:: Patient still feels very short of breath. Patient had an episode this morning where he wanted to get up and leave on states that he does not want to in the hospital. He became very agitated requiring brief presence of security. However patient calmed down and was able to have appropriate conversation about his health condition. I discussed potential of considering hospice because patient was initially very adamant on leaving right away despite his high oxygen requirements. Explained to patient that if he does leave in such conditions, there is a chance that he could but however leaving under hospice care would allow him to be more comfortable through the process. I also presented another option of possibly trying to treat a little further here to see if any improvement in his status to the chances may be very slim also try to get him over to [facility] for expedited transplant evaluation since patient is scheduled to follow up with them for transplant eval next month. Patient requested talking to [facility] to see if that route is possible. Reason For Visit: PNEUOMONIA, PULM FIBROSIS Physical Exam Vital Signs: Temp Pulse Resp BP Pulse Ox 98.9 F 91 24 H 112/67 95 03/21/19 07:22 03/21/19 07:22 03/21/19 08:00 03/21/19 07:22 03/21/19 08:00 Pulse Oximeter Continuous Start: 03/18/19 17:07 Freq: RTQ4 Status: Active Protocol: Document 03/21/19 08:00 LDA (Rec: 03/21/19 08:55 LDA [id number]) Pulse Oximetry Assessment Oxygen Saturation (92-100) 95 Oxygen Flow Rate (L/min) 30 Oxygen Delivery Method High Flow Nasal Cannula Fraction of Inspired Oxygen (FIO2) 55 Equipment Usage Equipment in Use Continuous SpO2 Machine # 9 Intake & Output 03/20/19 03/21/19 03/22/19 06:59 06:59 06:59 Intake Total 950 1290 Output Total 200 Balance 950 1090 Weight 92.1 kg 90.5 kg General appearance: PRESENT: no acute distress, cooperative Respiratory exam: PRESENT: crackles - throughout lung eldridge, symmetrical, tachypnea. ABSENT: rhonchi, unlabored, wheezes Cardiovascular exam: PRESENT: RRR, +S1, +S2. ABSENT: tachycardia GI/Abdominal exam: PRESENT: normal bowel sounds, soft. ABSENT: rebound, rigid, tenderness Neurological exam: PRESENT: alert, awake, oriented to person, oriented to place, oriented to time, oriented to situation Results Laboratory Results: 03/21/19 04:48 03/21/19 04:48 03/20/19 03/21/19 03/21/19 18:00 04:48 04:48 WBC 9.8 RBC 4.12 L Hgb 12.9 L Hct 37.2 L MCV 90 MCH 31.2 MCHC 34.5 RDW 13.0 Plt Count 344 Seg Neutrophils % 72.4 Carbonic Acid 1.01 L HCO3/H2CO3 Ratio 21:1 ABG pH 7.43 ABG pCO2 33.4 L ABG pO2 73.3 L ABG HCO3 21.8 ABG O2 Saturation 95.3 ABG Base Excess -1.8 FiO2 46% Sodium 138.5 Potassium 3.7 Chloride 103 Carbon Dioxide 24 Anion Gap 12 BUN 11 Creatinine 0.76 Est GFR ( Amer) > 60 Glucose 114 H Calcium 9.0 03/18/19 17:03 Blood Blood Culture (PCR) - Final Staphylococcus Species Streptococcus Species 03/19/19 05:10 NT-Pro-B Natriuret Pep 3880 H Impressions: Chest CT 03/18/19 00:00 IMPRESSION: Interval development of ground-glass opacities superimposed upon peripheral honeycomb appearance may represent progression in pulmonary fibrosis/UIP. Given concomitant appearance of increase in mediastinal lymphadenopathy and pulmonary artery hypertension, differential considerations include developing CHF exacerbation, atypical infection, or less likely, neoplasm. Chest X-Ray 03/21/19 00:00 IMPRESSION: Dense reticular interstitial opacities throughout both lungs worrisome for advanced pulmonary fibrosis. Overall pattern is similar compared to March 2018 Assessment and Plan - Diagnosis (1) Acute and chronic respiratory failure with hypoxia Is this a current diagnosis for this admission?: Yes Plan: Likely mostly secondary to idiopathic pulmonary fibrosis and cor pulmonale. Some effect from pneumonia. Currently having high oxygen requirements. Informed by nurse that patient was satting mid 80s on Ventimask of 50% FiO2 Will place on high flow nasal cannula to keep SPO2 > 88% Will monitor to see if improvement with treatment of pneumonia or if hypoxia is mostly from patient's underlying IPF 03/20/2019-patient is tolerating high flow nasal cannula at FiO2 of 40% and flow of 55. SPO2 in the mid 90s. Will attempt to wean FiO2 today. 03/21/2019-patient still gets very hypoxic especially when ambulating and drops into the low 80s even on FiO2 of 35% on high flow. At rest, for the most part he is able to tolerate FiO2 of around 40%. Had to bump his FiO2 to 45% today he was patient was de-satting after trying to sit upright. Flow rate currently at 50lpm. After having conversation with patient and patient's at bedside regarding his respiratory status, I called [facility] for potential transfer for expedited evaluation for lung transplant candidacy for supervised evaluation by particle board supervisor since we do not have any particle board supervisor on-call for a while. I spoke with the particle board supervisor Dr. Luiz Crews at [facility] and presented patient's entire case to him. Dr. Crews advised that it may not be possible to get patient on expedited evaluation for lung transplant candidacy but that he will coordinate with his transplant team at the center and get back to me on that. He does think it would be unlikely to get expedited. We reviewed the images together and he advises trial of Solu-Medrol for the increased groundglass opacities in the interval of the CT image between March and now. He states that the increased groundglass may be some superimposed inflammation common in IPF which may be able to be addressed by a trial of steroids even though this would unlikely have any bearing on his actual pulmonary fibrosis. He also advises a trial of Lasix for his cor pulmonale. He said he was also concerned about the safety of transfer given patient's high oxygen requirements at this time and has declined transfer as of now. Dr. Crews states that he is available and will to continue to coordinate for further consultation and can be called if patient continues to deteriorate. (2) Cor pulmonale Is this a current diagnosis for this admission?: Yes Plan: Acuity unknown but likely chronic Secondary to type III pulmonary hypertension from idiopathic pulmonary fibrosis Echocardiogram showing significantly dilated right ventricle with impaired right ventricular systolic function and RVSP 50-60mmhg with small LV cavity. Mainstay of treatment involves management of lung disease Palliative care consulted 03/21/2019-Dr. Luiz Crews with [facility] advises trial of Lasix (3) Moderate to severe pulmonary hypertension Is this a current diagnosis for this admission?: Yes Plan: Likely Type III pulmonary hypertension secondary to IPF Questionable if at all patient will benefit from sildenafil but medical literature indicates that this would unlikely improve patient's mortality. At this point, we will try lasix (4) Idiopathic pulmonary fibrosis Is this a current diagnosis for this admission?: Yes Plan: Recently diagnosed in May 2018. Status post trial of nintedanib [id number] without much help. CT image image confirms end stage pulmonary fibrosis with UIP pattern of IPF. Ultimately, patient will require lung transplantation which is the only thing proven to have mortality benefit patient's condition. Refer to problem #1 for further details. Palliative care consulted (5) Community acquired bacterial pneumonia Is this a current diagnosis for this admission?: Yes Plan: Chest CT showing significant pulmonary fibrosis with some underlying pneumonia Patient is high risk for Pseudomonas given structural lung disease cefepime and azithromycin day 4. Vancomycin day 3 Continue to follow blood cultures and sputum cultures. 03/21/2019-honestly at this point I am not too convinced that there is a significant presence of pneumonia playing a role here. If any likely just mild- minimal. I have reviewed chest CT image which shows mostly reticular opacities from pulmonary fibrosis with some groundglass appearance superimposed and very mild concern for infiltrates. Patient did have leukocytosis on admission which has resolved with antibiotics. For this reason I will continue treatment with broad-spectrum antibiotics to complete a 5-7 day course but doubt significant improvement of patient's hypoxia from antibiotics. (6) Diabetes mellitus type 2 in nonobese Is this a current diagnosis for this admission?: Yes Plan: Monitor Accu-Cheks with sliding scale AC at bedtime. Reduce Lantus to 30 units nightly from 50 given a.m. hypoglycemia (7) Anxiety Is this a current diagnosis for this admission?: Yes Plan: Patient gets very anxious about his respiratory status and panics about this often. Continue patient's nortriptyline I increased hydroxyzine dose Avoid benzos as it makes patient delirious - Time Time Spent with patient: 15-24 minutes
[2019-03-21] MEDS: METHYLPREDNISOLONE INJ 40 MG/1 ML SDV IV SCH ×2 (13:30→22:13)
[2019-03-21] MEDS: FUROSEMIDE INJ/PF 40 MG/4 ML SDV IV SCH (13:30)
[2019-03-21 14:30] LABS: VANCOMYCIN,TROUGH 12.6 ug/mL (5.0-20.0)
[2019-03-21] MEDS ORDERED: HALOPERIDOL LACTATE INJ 5 MG/1 ML VIAL ONE (15:44)
[2019-03-21] MEDS ORDERED: HALOPERIDOL LACTATE INJ 5 MG/1 ML VIAL IM PRN (16:16)
[2019-03-21] MEDS: QUETIAPINE FUMARATE 25 MG TABLET PO SCH ×2 (18:00→18:04)
[2019-03-21] MEDS: INSULIN GLARGINE,HUM.REC.ANLOG 1,000 UNIT/10 ML VIAL SUBCUT SCH (22:13)
[2019-03-21] MEDS: LORAZEPAM INJ 2 MG/1 ML VIAL IV PRN (22:39)
[2019-03-22 02:23] LABS: ARTERIAL BLOOD BASE EXCESS -1.2 mmol/L; ARTERIAL BLOOD FIO2 50%; ARTERIAL BLOOD H2CO3 1.07 mmol/L (1.05-1.35); ARTERIAL BLOOD HCO3 22.7 mmol/L (20-24); ARTERIAL BLOOD O2 SATURATION 95.6 % (94-98); ARTERIAL BLOOD PCO2 35.6 mmHg (35-45); ARTERIAL BLOOD PH 7.42 (7.35-7.45); ARTERIAL BLOOD TOTAL CO2 23.8 mmol/L (23-27)
[2019-03-22] MEDS ORDERED: MORPHINE SULFATE 10 MG/ML INJ ONE (02:30)
[2019-03-22] MEDS ORDERED: MORPHINE SULFATE 10 MG/ML INJ IV ONE (03:00)
[2019-03-22] MEDS: PANTOPRAZOLE SODIUM 20 MG TABLET.DR PO SCH (06:06)
[2019-03-22] MEDS: HEPARIN SOD (PORCINE) 5,000 UNIT/ML 1 ML VIAL SUBCUT SCH ×3 (06:06→21:12)
[2019-03-22] MEDS: LORAZEPAM INJ 2 MG/1 ML VIAL IV PRN (06:12)
[2019-03-22] MEDS: VANCOMYCIN HCL 1,250 MG in DEXTROSE 5%-WATER 250 ML IV SCH ×3 (06:12→21:08)
[2019-03-22] MEDS: LORATADINE 10 MG TABLET PO SCH (10:12)
[2019-03-22] MEDS: METOPROLOL TARTRATE 25 MG TABLET PO SCH ×2 (10:12→21:13)
[2019-03-22] MEDS: ASPIRIN 81 MG TABLET, ENT COATED PO SCH (10:12)
[2019-03-22] MEDS: FLUTICASONE/VILANTEROL 100-25 MCG/DOSE IH SCH (10:12)
[2019-03-22] MEDS: TOPIRAMATE 100 MG TABLET PO SCH (10:13)
[2019-03-22] MEDS: LISINOPRIL 10 MG TABLET PO SCH (10:13)
[2019-03-22] MEDS: QUETIAPINE FUMARATE 25 MG TABLET PO SCH ×2 (10:13→22:46)
[2019-03-22] MEDS: CEFEPIME HCL 2 GM in DEXTROSE 5%-WATER 50 ML IV SCH ×2 (10:28→22:45)
[2019-03-22] MEDS: METHYLPREDNISOLONE INJ 40 MG/1 ML SDV IV SCH ×2 (10:29→21:08)
[2019-03-22] MEDS: FUROSEMIDE INJ/PF 40 MG/4 ML SDV IV SCH (10:29)
--- NOTE | 2019-03-22 11:15 | PDOC PROGRESS REPORT ---
Subjective Progress Note for:: 03/22/19 Reason For Visit: MANINDER, PULM FIBROSIS 03/22/2019 End stage pulmonary fibrosis Physical Exam Vital Signs: Temp Pulse Resp BP Pulse Ox 97.3 F 78 20 109/63 100 03/22/19 07:43 03/22/19 07:43 03/22/19 08:00 03/22/19 07:43 03/22/19 08:00 Pulse Oximeter Continuous Start: 03/18/19 17:07 Freq: RTQ4 Status: Active Protocol: Document 03/22/19 08:00 LDA (Rec: 03/22/19 09:32 LDA [id number]) Pulse Oximetry Assessment Oxygen Saturation (92-100) 100 Oxygen Delivery Method Bi-pap Fraction of Inspired Oxygen (FIO2) 50 Equipment Usage Equipment in Use Continuous SpO2 Machine # 9 Intake & Output 03/21/19 03/22/19 03/23/19 06:59 06:59 06:59 Intake Total 1290 890 250 Output Total 200 700 Balance 1090 190 250 Weight 90.5 kg 91.3 kg General appearance: PRESENT: no acute distress, other - Patient sleeping with the BiPAP machine Respiratory exam: PRESENT: decreased breath sounds Cardiovascular exam: PRESENT: RRR. ABSENT: diastolic murmur, rubs, systolic murmur Neurological exam: PRESENT: altered Psychiatric exam: PRESENT: other - Patient was very agitated last night getting up walking the hallways Patient now has a sitter 24 hours Results Laboratory Results: 03/21/19 04:48 03/21/19 04:48 03/22/19 02:00 Carbonic Acid 1.07 HCO3/H2CO3 Ratio 21:1 ABG pH 7.42 ABG pCO2 35.6 ABG pO2 76.0 L ABG HCO3 22.7 ABG O2 Saturation 95.6 ABG Base Excess -1.2 FiO2 50% 03/18/19 17:03 Blood Blood Culture (PCR) - Final Staphylococcus Species Streptococcus Species 03/19/19 05:10 NT-Pro-B Natriuret Pep 3880 H Impressions: Chest CT 03/18/19 00:00 IMPRESSION: Interval development of ground-glass opacities superimposed upon peripheral honeycomb appearance may represent progression in pulmonary fibrosis/UIP. Given concomitant appearance of increase in mediastinal lymphadenopathy and pulmonary artery hypertension, differential considerations include developing CHF exacerbation, atypical infection, or less likely, neoplasm. Chest X-Ray 03/21/19 00:00 IMPRESSION: Dense reticular interstitial opacities throughout both lungs worrisome for advanced pulmonary fibrosis. Overall pattern is similar compared to March 2018 Assessment and Plan - Diagnosis (1) Acute and chronic respiratory failure with hypoxia Is this a current diagnosis for this admission?: Yes (2) Anxiety Is this a current diagnosis for this admission?: Yes (3) Community acquired bacterial pneumonia Is this a current diagnosis for this admission?: Yes (5) Idiopathic pulmonary fibrosis Is this a current diagnosis for this admission?: Yes - Plan Summary Summary: 03/22/2019 Temp 97 3, blood pressure 109/63, patient on BiPAP 50% O2, rate of 8 Patient currently on cefepime and Zithromax According to the nurses the Lasix and steroids that were added are not helping Lung transplant team at [facility], Dr. Crews has been notified and spoken with by previous physician. It is not a candidate for transfer at this time Echocardiogram results are pending White count initially was 18,900 is now down to 9.8. We will continue cefepime and Zithromax for his pneumonia Renal function appears stable BUN of 11 creatinine 0.76, glucose running around 200 Patient still a full code after multiple discussions with the family and the patient. He is in the room and I will talk to her again today concerning CODE STATUS and possible hospice Patient does have right-sided heart failure secondary to his idiopathic pulmonary fibrosis. - Time Time Spent with patient: 35 or more minutes
[2019-03-22] MEDS: INSULIN LISPRO 100 UNIT/ML 3 ML VIAL SUBCUT SCH ×4 (12:04→22:28)
--- NOTE | 2019-03-22 20:18 | EKG REPORT ---
SEVERITY:- ABNORMAL ECG - SINUS RHYTHM PROBABLE LEFT ATRIAL ABNORMALITY LOW VOLTAGE IN FRONTAL LEADS NONSPECIFIC T ABNORMALITIES, ANTERIOR LEADS : Confirmed by: Roro Santos MD 22-Mar-2019 20:17:18
[2019-03-22] MEDS: INSULIN GLARGINE,HUM.REC.ANLOG 1,000 UNIT/10 ML VIAL SUBCUT SCH (22:28)
[2019-03-23] MEDS: HEPARIN SOD (PORCINE) 5,000 UNIT/ML 1 ML VIAL SUBCUT SCH ×3 (05:09→21:28)
[2019-03-23] MEDS: PANTOPRAZOLE SODIUM 20 MG TABLET.DR PO SCH (05:09)
[2019-03-23] MEDS: VANCOMYCIN HCL 1,250 MG in DEXTROSE 5%-WATER 250 ML IV SCH ×3 (05:12→21:21)
[2019-03-23] MEDS: LORATADINE 10 MG TABLET PO SCH (09:01)
[2019-03-23] MEDS: FLUTICASONE/VILANTEROL 100-25 MCG/DOSE IH SCH (09:01)
[2019-03-23] MEDS: ASPIRIN 81 MG TABLET, ENT COATED PO SCH (09:01)
[2019-03-23] MEDS: LISINOPRIL 10 MG TABLET PO SCH (09:02)
[2019-03-23] MEDS: TOPIRAMATE 100 MG TABLET PO SCH (09:02)
[2019-03-23] MEDS: QUETIAPINE FUMARATE 25 MG TABLET PO SCH ×2 (09:02→21:29)
[2019-03-23] MEDS: METOPROLOL TARTRATE 25 MG TABLET PO SCH ×2 (09:02→21:22)
[2019-03-23] MEDS: METHYLPREDNISOLONE INJ 40 MG/1 ML SDV IV SCH ×2 (09:06→21:22)
[2019-03-23] MEDS: INSULIN LISPRO 100 UNIT/ML 3 ML VIAL SUBCUT SCH ×4 (09:06→21:28)
[2019-03-23] MEDS: FUROSEMIDE INJ/PF 40 MG/4 ML SDV IV SCH (09:06)
[2019-03-23] MEDS: CEFEPIME HCL 2 GM in DEXTROSE 5%-WATER 50 ML IV SCH ×2 (09:14→21:21)
[2019-03-23] MEDS: NORMAL SALINE 1000 ML 1,000 ML IV PRN (11:02)
--- NOTE | 2019-03-23 12:53 | PDOC PROGRESS REPORT ---
Subjective Progress Note for:: 03/23/19 Reason For Visit: PNEUOMONIA, PULM FIBROSIS 03/23/2019 End stage pulmonary fibrosis, pneumonia Physical Exam Vital Signs: Temp Pulse Resp BP Pulse Ox 97.7 F 86 33 H 129/85 H 100 03/23/19 08:08 03/23/19 08:08 03/23/19 08:30 03/23/19 08:08 03/23/19 08:30 Pulse Oximeter Continuous Start: 03/18/19 17:07 Freq: RTQ4 Status: Active Protocol: Document 03/23/19 08:30 HCR (Rec: 03/23/19 10:56 HCR [id number]) Pulse Oximetry Assessment Oxygen Saturation (92-100) 100 Oxygen Delivery Method Bi-pap Fraction of Inspired Oxygen (FIO2) 50 Equipment Usage Equipment in Use Continuous SpO2 Machine # N9 Intake & Output 03/22/19 03/23/19 03/24/19 06:59 06:59 06:59 Intake Total 890 850 300 Output Total 700 2700 Balance 190 -1850 300 Weight 91.3 kg 89.6 kg General appearance: PRESENT: mild distress, other - Patient has his BiPAP mask on however he is talking in full sentences awake and alert, asking for his restraints to be removed Respiratory exam: PRESENT: decreased breath sounds Cardiovascular exam: PRESENT: RRR. ABSENT: diastolic murmur, rubs, systolic murmur Neurological exam: PRESENT: alert, awake, oriented to person, oriented to place, oriented to time, oriented to situation, CN II-XII grossly intact. ABSENT: motor sensory deficit Psychiatric exam: PRESENT: anxious Results Laboratory Results: 03/21/19 04:48 03/21/19 04:48 03/18/19 17:03 Blood Blood Culture (PCR) - Final Staphylococcus Species Streptococcus Species 03/19/19 05:10 NT-Pro-B Natriuret Pep 3880 H Impressions: Chest CT 03/18/19 00:00 IMPRESSION: Interval development of ground-glass opacities superimposed upon peripheral honeycomb appearance may represent progression in pulmonary fibrosis/UIP. Given concomitant appearance of increase in mediastinal lymphadenopathy and pulmonary artery hypertension, differential considerations include developing CHF exacerbation, atypical infection, or less likely, neoplasm. Chest X-Ray 03/21/19 00:00 IMPRESSION: Dense reticular interstitial opacities throughout both lungs worrisome for advanced pulmonary fibrosis. Overall pattern is similar compared to March 2018 Assessment and Plan - Diagnosis (1) Acute and chronic respiratory failure with hypoxia Is this a current diagnosis for this admission?: Yes (2) Anxiety Is this a current diagnosis for this admission?: Yes (3) Community acquired bacterial pneumonia Is this a current diagnosis for this admission?: Yes (5) Idiopathic pulmonary fibrosis Is this a current diagnosis for this admission?: Yes - Plan Summary Summary: 03/22/2019 Temp 97 3, blood pressure 109/63, patient on BiPAP 50% O2, rate of 8 Patient currently on cefepime and vancomycin According to the nurses the Lasix and steroids that were added are not helping Lung transplant team at [facility], Dr[address] Crews has been notified and spoken with by previous physician. It is not a candidate for transfer at this time Echocardiogram results are pending White count initially was 18,900 is now down to 9.8. We will continue cefepime and for his pneumonia Renal function appears stable BUN of 11 creatinine 0.76, glucose running around 200 Patient still a full code after multiple discussions with the family and the patient. He is in the room and I will talk to her again today concerning CODE STATUS and possible hospice Patient does have right-sided heart failure secondary to his idiopathic pulmonary fibrosis. 03/23/2019 Temperature 97.7 pulse 86, blood pressure 129/85. Patient is on BiPAP with a rate 33, FI O2 50% saturation 100% Patient currently using BiPAP and family have made patient a DNR and would like to speak with hospice concerning their options. This was done yesterday in the presence of the patient's nurse Patient is laying in bed with his BiPAP machine on. He is talking about being frustrated with his restraints and not being able to get up out of bed Labs are stable. Patient currently has Haldol and Ativan to use as needed Patient is currently on vancomycin and cefepime Also continuing the steroids and Lasix, so far this does not seem to be imp roving his condition, as he is still severely dependent on the BiPAP machine - Time Time Spent with patient: 35 or more minutes
[2019-03-23] MEDS: INSULIN GLARGINE,HUM.REC.ANLOG 1,000 UNIT/10 ML VIAL SUBCUT SCH (21:28)
[2019-03-24] MEDS: NORMAL SALINE 1000 ML 1,000 ML IV PRN ×3 (01:52→21:52)
[2019-03-24] MEDS: PANTOPRAZOLE SODIUM 20 MG TABLET.DR PO SCH (05:16)
[2019-03-24] MEDS: HEPARIN SOD (PORCINE) 5,000 UNIT/ML 1 ML VIAL SUBCUT SCH ×3 (05:16→21:44)
[2019-03-24] MEDS: VANCOMYCIN HCL 1,250 MG in DEXTROSE 5%-WATER 250 ML IV SCH ×3 (05:16→21:42)
[2019-03-24] MEDS: LORATADINE 10 MG TABLET PO SCH (09:07)
[2019-03-24] MEDS: QUETIAPINE FUMARATE 25 MG TABLET PO SCH ×2 (09:07→21:44)
[2019-03-24] MEDS: INSULIN LISPRO 100 UNIT/ML 3 ML VIAL SUBCUT SCH ×4 (09:07→21:43)
[2019-03-24] MEDS: METOPROLOL TARTRATE 25 MG TABLET PO SCH ×2 (09:07→21:43)
[2019-03-24] MEDS: LISINOPRIL 10 MG TABLET PO SCH (09:08)
[2019-03-24] MEDS: ASPIRIN 81 MG TABLET, ENT COATED PO SCH (09:08)
[2019-03-24] MEDS: METHYLPREDNISOLONE INJ 40 MG/1 ML SDV IV SCH ×2 (09:08→21:42)
[2019-03-24] MEDS: TOPIRAMATE 100 MG TABLET PO SCH (09:09)
[2019-03-24] MEDS: FUROSEMIDE INJ/PF 40 MG/4 ML SDV IV SCH (09:09)
[2019-03-24] MEDS: FLUTICASONE/VILANTEROL 100-25 MCG/DOSE IH SCH (09:10)
[2019-03-24] MEDS: CEFEPIME HCL 2 GM in DEXTROSE 5%-WATER 50 ML IV SCH ×2 (09:10→21:42)
--- NOTE | 2019-03-24 11:34 | PDOC PROGRESS REPORT ---
Subjective Progress Note for:: 03/24/19 Reason For Visit: MANINDER, PULM FIBROSIS 03/24/2019 End-stage pulmonary fibrosis Physical Exam Vital Signs: Temp Pulse Resp BP Pulse Ox 97.4 F 67 26 H 142/70 H 98 03/24/19 08:09 03/24/19 08:09 03/24/19 08:09 03/24/19 08:09 03/24/19 08:09 Pulse Oximeter Continuous Start: 03/18/19 17:07 Freq: RTQ4 Status: Active Protocol: Document 03/24/19 08:00 [facility] (Rec: 03/24/19 08:24 [facility] [id number]) Pulse Oximetry Assessment Oxygen Saturation (92-100) 93 Oxygen Flow Rate (L/min) 7 Oxygen Delivery Method Nasal Cannula Fraction of Inspired Oxygen (FIO2) 50 Equipment Usage Equipment in Use Continuous SpO2 Machine # N9 Intake & Output 03/23/19 03/24/19 03/25/19 06:59 06:59 06:59 Intake Total 850 2316 Output Total 2700 3100 Balance -1850 -784 Weight 89.6 kg 90.8 kg General appearance: PRESENT: mild distress Respiratory exam: PRESENT: decreased breath sounds - Decreased breath sounds in the right lower lobe Cardiovascular exam: PRESENT: RRR. ABSENT: diastolic murmur, rubs, systolic murmur Neurological exam: PRESENT: alert, awake, oriented to person, oriented to place, oriented to time, oriented to situation, CN II-XII grossly intact. ABSENT: motor sensory deficit Psychiatric exam: PRESENT: agitated, anxious, other - This may be patient's normal demeanor or it may be secondary to hypoxia Results Laboratory Results: 03/21/19 04:48 03/21/19 04:48 03/19/19 09:37 Blood Blood Culture - Final NO GROWTH IN 5 DAYS 03/19/19 08:31 Blood Blood Culture - Final NO GROWTH IN 5 DAYS 03/18/19 20:49 Blood Blood Culture - Final NO GROWTH IN 5 DAYS 03/18/19 17:03 Blood Blood Culture (PCR) - Final Staphylococcus Species Streptococcus Species 03/18/19 17:03 Blood Blood Culture - Final Strep Mitis/Oralis Grp Streptococcus Salivarius Staphylococcus Epidermidis 03/19/19 05:10 NT-Pro-B Natriuret Pep 3880 H Impressions: Chest CT 03/18/19 00:00 IMPRESSION: Interval development of ground-glass opacities superimposed upon peripheral honeycomb appearance may represent progression in pulmonary fibrosi s/UIP. Given concomitant appearance of increase in mediastinal lymphadenopathy and pulmonary artery hypertension, differential considerations include developing CHF exacerbation, atypical infection, or less likely, neoplasm. Chest X-Ray 03/21/19 00:00 IMPRESSION: Dense reticular interstitial opacities throughout both lungs worrisome for advanced pulmonary fibrosis. Overall pattern is similar compared to March 2018 Assessment and Plan - Diagnosis (1) Acute and chronic respiratory failure with hypoxia Is this a current diagnosis for this admission?: Yes (2) Anxiety Is this a current diagnosis for this admission?: Yes (3) Community acquired bacterial pneumonia Is this a current diagnosis for this admission?: Yes (5) Idiopathic pulmonary fibrosis Is this a current diagnosis for this admission?: Yes - Plan Summary Summary: 03/22/2019 Temp 97 3, blood pressure 109/63, patient on BiPAP 50% O2, rate of 8 Patient currently on cefepime and vancomycin According to the nurses the Lasix and steroids that were added are not helping Lung transplant team at [facility], Dr. Crews has been notified and spoken with by fermin paige physician. It is not a candidate for transfer at this time Echocardiogram results are pending White count initially was 18,900 is now down to 9.8. We will continue cefepime and for his pneumonia Renal function appears stable BUN of 11 creatinine 0.76, glucose running around 200 Patient still a full code after multiple discussions with the family and the patient. He is in the room and I will talk to her again today concerning CODE STATUS and possible hospice Patient does have right-sided heart failure secondary to his idiopathic pulmonary fibrosis. 03/23/2019 Temperature 97.7 pulse 86, blood pressure 129/85. Patient is on BiPAP with a rate 33, FI O2 50% saturation 100% Patient currently using BiPAP and family have made patient a DNR and would like to speak with hospice concerning their options. This was done yesterday in the presence of the patient's nurse Patient is laying in bed with his BiPAP machine on. He is talking about being frustrated with his restraints and not being able to get up out of bed Labs are stable. Patient currently has Haldol and Ativan to use as needed Patient is currently on vancomycin and cefepime Also continuing the steroids and Lasix, so far this does not seem to be improving his condition, as he is still severely dependent on the BiPAP machine 08/22/2018 Signs are stable O2 sats are maintaining between 91 and 100% on either BiPAP or occasional nasal cannula. Although nasal cannula needs to be up to 7 L to maintain saturation. Patient is able to sit up on the bed side and carry on a conversation with nasal cannula. Going to repeat a portable chest x-ray today as well as routine labs - Time Time Spent with patient: 15-24 minutes
--- NOTE | 2019-03-24 15:05 | RADIOLOGY REPORT (SQ) ---
EXAM DESCRIPTION: CHEST SINGLE VIEW COMPLETED DATE/TIME: 03/24/2019 2:52 pm REASON FOR STUDY: sob, fibrosis COMPARISON: 03/21/2019, EXAM PARAMETERS: NUMBER OF VIEWS: One view. TECHNIQUE: Single frontal radiographic view of the chest acquired. RADIATION DOSE: NA LIMITATIONS: None. FINDINGS: LUNGS AND PLEURA: Course reticulonodular interstitial opacities, greatest within the left lung base. Findings mildly improved from prior exam. No significant effusion. No pneumothorax. MEDIASTINUM AND HILAR STRUCTURES: No masses. Contour normal. HEART AND VASCULAR STRUCTURES: Normal heart size. Aortic atherosclerosis. Enlarged pulmonary arteri es. BONES: No acute findings. HARDWARE: None in the chest. OTHER: No other significant finding. IMPRESSION: Fibrotic lung changes without definite superimposed cardiopulmonary process. TECHNICAL DOCUMENTATION: JOB ID: [id number] [employer]- All Rights Reserved Reading location - IP/workstation name: [email or web address]
--- NOTE | 2019-03-24 15:26 | Progress Note ---
Provider Note Provider Note: 03/24/2019 Medications that pertaining to his pulmonary fibrosis is Solu-Medrol 40 mg IV every 12 hours day #4, Lasix 40 mg IV daily day #4, ask a pain 2 g every 12 hours day #6, vancomycin 1250 mg IV every 8 hours day #5 Chest x-ray today shows fibrotic changes possibly mildly improved from prior exam 3 days ago
[2019-03-24] MEDS: INSULIN GLARGINE,HUM.REC.ANLOG 1,000 UNIT/10 ML VIAL SUBCUT SCH (21:42)
[2019-03-24] MEDS ORDERED: MELATONIN 5 MG TABLET PO PRN (22:23)
[2019-03-25] MEDS: VANCOMYCIN HCL 1,250 MG in DEXTROSE 5%-WATER 250 ML IV SCH (05:08)
[2019-03-25] MEDS: HEPARIN SOD (PORCINE) 5,000 UNIT/ML 1 ML VIAL SUBCUT SCH ×3 (05:08→22:27)
[2019-03-25] MEDS: PANTOPRAZOLE SODIUM 20 MG TABLET.DR PO SCH (05:08)
[2019-03-25] MEDS: NORMAL SALINE 1000 ML 1,000 ML IV PRN ×2 (07:34→20:50)
[2019-03-25] MEDS: INSULIN LISPRO 100 UNIT/ML 3 ML VIAL SUBCUT SCH ×4 (08:00→22:30)
[2019-03-25] MEDS: METHYLPREDNISOLONE INJ 40 MG/1 ML SDV IV SCH ×2 (10:15→22:29)
[2019-03-25] MEDS: LISINOPRIL 10 MG TABLET PO SCH (10:15)
[2019-03-25] MEDS: FUROSEMIDE INJ/PF 40 MG/4 ML SDV IV SCH (10:15)
[2019-03-25] MEDS: LORATADINE 10 MG TABLET PO SCH (10:15)
[2019-03-25] MEDS: ASPIRIN 81 MG TABLET, ENT COATED PO SCH (10:15)
[2019-03-25] MEDS: FLUTICASONE/VILANTEROL 100-25 MCG/DOSE IH SCH (10:16)
[2019-03-25] MEDS: METOPROLOL TARTRATE 25 MG TABLET PO SCH ×2 (10:16→22:31)
[2019-03-25] MEDS: QUETIAPINE FUMARATE 25 MG TABLET PO SCH ×2 (10:16→22:30)
[2019-03-25] MEDS: TOPIRAMATE 100 MG TABLET PO SCH (10:16)
[2019-03-25] MEDS: CEFEPIME HCL 2 GM in DEXTROSE 5%-WATER 50 ML IV SCH (10:35)
--- NOTE | 2019-03-25 12:14 | PDOC PROGRESS REPORT ---
Subjective Progress Note for:: 03/25/19 Reason For Visit: MANINDER, PULM FIBROSIS 03/25/2019 End-stage pulmonary fibrosis with pneumonia Physical Exam Vital Signs: Temp Pulse Resp BP Pulse Ox 97.4 F 57 L 25 H 155/68 H 90 L 03/25/19 07:50 03/25/19 07:50 03/25/19 07:50 03/25/19 07:50 03/25/19 08:00 Pulse Oximeter Continuous Start: 03/18/19 17:07 Freq: RTQ4 Status: Active Protocol: Document 03/25/19 08:00 [facility] (Rec: 03/25/19 10:57 [facility] [id number]) Pulse Oximetry Assessment Oxygen Saturation (92-100) 90 Oxygen Flow Rate (L/min) 7 Oxygen Delivery Method Nasal Cannula Fraction of Inspired Oxygen (FIO2) 48 Equipment Usage Equipment in Use Continuous SpO2 Machine # 9 Intake & Output 03/24/19 03/25/19 03/26/19 06:59 06:59 06:59 Intake Total 2316 4305 1000 Output Total 3100 3725 Balance -434 846 6870 Weight 90.8 kg 90.8 kg General appearance: PRESENT: mild distress, other - Secondary to hypoxia Respiratory exam: PRESENT: rhonchi Cardiovascular exam: PRESENT: RRR. ABSENT: diastolic murmur, rubs, systolic murmur Neurological exam: PRESENT: alert, awake, oriented to person, oriented to place, oriented to time, oriented to situation, CN II-XII grossly intact. ABSENT: motor sensory deficit Psychiatric exam: PRESENT: appropriate affect, normal mood. ABSENT: homicidal ideation, suicidal ideation Results Laboratory Results: 03/21/19 04:48 03/21/19 04:48 03/19/19 09:37 Blood Blood Culture - Final NO GROWTH IN 5 DAYS 03/19/19 08:31 Blood Blood Culture - Final NO GROWTH IN 5 DAYS 03/19/19 05:10 NT-Pro-B Natriuret Pep 3880 H Impressions: Chest CT 03/18/19 00:00 IMPRESSION: Interval development of ground-glass opacities superimposed upon peripheral honeycomb appearance may represent progression in pulmonary fibrosis/UIP. Given concomitant appearance of increase in mediastinal lymphadenopathy and pulmonary artery hypertension, differential considerations include developing CHF exacerbation, atypical infection, or less likely, neoplasm. Chest X-Ray 03/24/19 00:00 IMPRESSION: Fibrotic lung changes without definite superimposed cardiopulmonary process. Assessment and Plan - Diagnosis (1) Acute and chronic respiratory failure with hypoxia Is this a current diagnosis for this admission?: Yes (2) Anxiety Is this a current diagnosis for this admission?: Yes (3) Community acquired bacterial pneumonia Is this a current diagnosis for this admission?: Yes (5) Idiopathic pulmonary fibrosis Is this a current diagnosis for this admission?: Yes - Plan Summary Summary: 03/22/2019 Temp 97 3, blood pressure 109/63, patient on BiPAP 50% O2, rate of 8 Patient currently on cefepime and vancomycin According to the nurses the Lasix and steroids that were added are not helping Lung transplant team at [facility], Dr. Crews has been notified and spoken with by previous physician. It is not a candidate for transfer at this time Echocardiogram results are pending White count initially was 18,900 is now down to 9.8. We will continue cefepime and for his pneumonia Renal function appears stable BUN of 11 creatinine 0.76, glucose running around 200 Patient still a full code after multiple discussions with the family and the patient. He is in the room and I will talk to her again today concerning CODE STATUS and possible hospice Patient does have right-sided heart failure secondary to his idiopathic pulmonary fibrosis. 03/23/2019 Temperature 97.7 pulse 86, blood pressure 129/85. Patient is on BiPAP with a rate 33, FI O2 50% saturation 100% Patient currently using BiPAP and family have made patient a DNR and would like to speak with hospice concerning their options. This was done yesterday in the presence of the patient's nurse Patient is laying in bed with his BiPAP machine on. He is talking about being frustrated with his restraints and not being able to get up out of bed Labs are stable. Patient currently has Haldol and Ativan to use as needed Patient is currently on vancomycin and cefepime Also continuing the steroids and Lasix, so far this does not seem to be improving his condition, as he is still severely dependent on the BiPAP machine 03/24/2019 Signs are stable O2 sats are maintaining between 91 and 100% on either BiPAP or occasional nasal cannula. Although nasal cannula needs to be up to 7 L to maintain saturation. Patient is able to sit up on the bed side and carry on a conversation with nasal cannula. Going to repeat a portable chest x-ray today as well as routine labs 03/25/2019 When patient is on BiPAP his saturations are 100%, never when patient switches to nasal cannula even on 6 or 7 L his O2 saturations are in the low 90s. Aspiration rate is approximately 23 Cefepime and vancomycin have been discontinued today and meropenem has been started, due to staph in his blood cultures Patient is also on Lasix 40 mg IV daily that was started 4 days ago Patient is also on Solu-Medrol 40 mg every 12 hours it was started 4 days ago I have decrease his IV fluids to KVO today Patient has not used any Haldol or Ativan for several days now. Patient appears to be obviously oxygen dependent whether by high flow nasal cannula or by BiPAP. Patient qualifies for going home with hospice while waiting for lung transplant. Patient and family are going to decide in the next day or 2 as to his course of action No other changes made other than the above-mentioned - Time Time Spent with patient: 35 or more minutes
[2019-03-25] MEDS: INSULIN GLARGINE,HUM.REC.ANLOG 1,000 UNIT/10 ML VIAL SUBCUT SCH (22:27)
[2019-03-25] MEDS: MEROPENEM 1 GM in NORMAL SALINE 50 ML IV SCH (22:27)
[2019-03-26] MEDS: PANTOPRAZOLE SODIUM 20 MG TABLET.DR PO SCH (05:45)
[2019-03-26] MEDS: MEROPENEM 1 GM in NORMAL SALINE 50 ML IV SCH (05:45)
[2019-03-26] MEDS: HEPARIN SOD (PORCINE) 5,000 UNIT/ML 1 ML VIAL SUBCUT SCH ×3 (05:45→21:50)
[2019-03-26] MEDS ORDERED: VANCOMYCIN HCL 0 MG in DEXTROSE 5%-WATER 250 ML IV NR (07:45)
[2019-03-26] MEDS: INSULIN LISPRO 100 UNIT/ML 3 ML VIAL SUBCUT SCH ×4 (08:17→21:51)
[2019-03-26 08:59] LABS: HEMOGLOBIN 15.1 g/dL (13.5-17.0); MEAN CORPUSCULAR HEMOGLOBIN 30.5 pg (27.0-33.4); MEAN CORPUSCULAR HGB CONC 34.3 g/dL (32.0-36.0); MEAN CORPUSCULAR VOLUME 89 fl (80-97); PLATELET COUNT 431 10^3/uL (150-450); RED BLOOD COUNT 4.96 10^6/uL (4.35-5.55); RED CELL DISTRIBUTION WIDTH 12.8 % (11.5-14.0); WHITE BLOOD COUNT 10.9 10^3/uL (4.0-10.5)
[2019-03-26 09:10] LABS: ALBUMIN 3.9 g/dL (3.5-5.0); ALKALINE PHOSPHATASE 89 U/L (38-126); ANION GAP 10 (5-19); ASPARTATE AMINO TRANSFERASE 37 U/L (17-59); BILIRUBIN,DIRECT 0.4 mg/dL (0.0-0.4); BILIRUBIN,TOTAL 0.7 mg/dL (0.2-1.3); BLOOD UREA NITROGEN 20 mg/dL (7-20); CALCIUM 9.3 mg/dL (8.4-10.2); CARBON DIOXIDE 29 mmol/L (22-30); CHLORIDE 103 mmol/L (98-107); GLUCOSE 269 mg/dL (75-110); POTASSIUM 4.3 mmol/L (3.6-5.0); TOTAL PROTEIN 7.8 g/dL (6.3-8.2)
[2019-03-26 09:53] LABS: ABSOLUTE LYMPHOCYTES# (MANUAL) 2.3 10^3/uL (0.5-4.7); ABSOLUTE MONOCYTES # (MANUAL) 0.2 10^3/uL (0.1-1.4); BASOPHILS % (MANUAL) 0 % (0-2); EOSINOPHILS % (MANUAL) 1 % (0-6); LYMPHOCYTES % (MANUAL) 21 % (13-45); MONOCYTES % (MANUAL) 2 % (3-13); SEGMENTED NEUTROPHILS % (MAN) 76 % (42-78); TOTAL CELLS COUNTED 100
[2019-03-26 09:54] LABS: PLATELET COMMENT ADEQUATE; TOXIC GRANULATION SLIGHT; TOXIC VACUOLATION PRESENT
[2019-03-26] MEDS: FLUTICASONE/VILANTEROL 100-25 MCG/DOSE IH SCH (10:00)
[2019-03-26] MEDS: TOPIRAMATE 100 MG TABLET PO SCH (10:00)
[2019-03-26] MEDS: METOPROLOL TARTRATE 25 MG TABLET PO SCH ×2 (10:00→21:57)
[2019-03-26] MEDS: LEVOFLOXACIN 750 MG/D5W RTU 750 MG/150 ML RTUPB IV SCH (10:00)
[2019-03-26] MEDS: LISINOPRIL 10 MG TABLET PO SCH (10:01)
[2019-03-26] MEDS: ASPIRIN 81 MG TABLET, ENT COATED PO SCH (10:01)
[2019-03-26] MEDS: QUETIAPINE FUMARATE 25 MG TABLET PO SCH ×2 (10:01→21:51)
[2019-03-26] MEDS: LORATADINE 10 MG TABLET PO SCH (10:01)
[2019-03-26] MEDS: METHYLPREDNISOLONE INJ 40 MG/1 ML SDV IV SCH ×2 (10:02→21:42)
[2019-03-26] MEDS: FUROSEMIDE INJ/PF 40 MG/4 ML SDV IV SCH (10:02)
--- NOTE | 2019-03-26 11:00 | PDOC PROGRESS REPORT ---
Subjective Progress Note for:: 03/26/19 Reason For Visit: PNEUOMONIA, PULM FIBROSIS 03/26/2019 End-stage pulmonary fibrosis, pneumonia, hypoxia Physical Exam Vital Signs: Temp Pulse Resp BP Pulse Ox 97.3 F 58 L 27 H 148/88 H 100 03/26/19 07:40 03/26/19 07:40 03/26/19 07:40 03/26/19 07:40 03/26/19 07:40 Pulse Oximeter Continuous Start: 03/18/19 17:07 Freq: RTQ4 Status: Active Protocol: Document 03/26/19 04:52 [facility] (Rec: 03/26/19 04:53 [facility] [id number]) Pulse Oximetry Assessment Oxygen Saturation (92-100) 95 Oxygen Delivery Method Bi-pap Fraction of Inspired Oxygen (FIO2) 50 Equipment Usage Equipment in Use Continuous SpO2 Machine # 9 Intake & Output 03/25/19 03/26/19 03/27/19 06:59 06:59 06:59 Intake Total 4309 2294 Output Total 1728 1864 Balance 580 -3226 Weight 90.8 kg 88.7 kg General appearance: PRESENT: mild distress, other - Patient is sitting up in bed talking in full sentences although still using nasal cannula at high flow approximately 6 or 7 L Respiratory exam: PRESENT: decreased breath sounds, wheezes Cardiovascular exam: PRESENT: RRR. ABSENT: diastolic murmur, rubs, systolic murmur Neurological exam: PRESENT: alert, awake, oriented to person, oriented to place, oriented to time, oriented to situation, CN II-XII grossly intact. ABSENT: motor sensory deficit Psychiatric exam: PRESENT: appropriate affect, normal mood. ABSENT: homicidal ideation, suicidal ideation Results Laboratory Results: 03/26/19 08:19 03/26/19 08:19 03/26/19 03/26/19 08:19 08:19 WBC 10.9 H RBC 4.96 Hgb 15.1 Hct 44.0 MCV 89 MCH 30.5 MCHC 34.3 RDW 12.8 Plt Count 431 Seg Neutrophils % Not Reportable Sodium 141.6 Potassium 4.3 Chloride 103 Carbon Dioxide 29 Anion Gap 10 BUN 20 Creatinine 0.67 Est GFR ( Amer) > 60 Glucose 269 H Calcium 9.3 Total Bilirubin 0.7 AST 37 Alkaline Phosphatase 89 Total Protein 7.8 Albumin 3.9 03/19/19 05:10 NT-Pro-B Natriuret Pep 3880 H Impressions: Chest CT 03/18/19 00:00 IMPRESSION: Interval development of ground-glass opacities superimposed upon peripheral honeycomb appearance may represent progression in pulmonary fi brosis/UIP. Given concomitant appearance of increase in mediastinal lymphadenopathy and pulmonary artery hypertension, differential considerations include developing CHF exacerbation, atypical infection, or less likely, neoplasm. Chest X-Ray 03/24/19 00:00 IMPRESSION: Fibrotic lung changes without definite superimposed cardiopulmonary process. Assessment and Plan - Diagnosis (1) Acute and chronic respiratory failure with hypoxia Is this a current diagnosis for this admission?: Yes (2) Anxiety Is this a current diagnosis for this admission?: Yes (3) Community acquired bacterial pneumonia Is this a current diagnosis for this admission?: Yes (5) Idiopathic pulmonary fibrosis Is this a current diagnosis for this admission?: Yes - Plan Summary Summary: 03/22/2019 Temp 97 3, blood pressure 109/63, patient on BiPAP 50% O2, rate of 8 Patient currently on cefepime and vancomycin According to the nurses the Lasix and steroids that were added are not helping Lung transplant team at [facility], Dr. Crews has been notified and spoken with by previous physician. It is not a candidate for transfer at this time Echocardiogram results are pending White count initially was 18,900 is now down to 9.8. We will continue cefepime and for his pneumonia Renal function appears stable BUN of 11 creatinine 0.76, glucose running around 200 Patient still a full code after multiple discussions with the family and the patient. He is in the room and I will talk to her again today concerning CODE STATUS and possible hospice Patient does have right-sided heart failure secondary to his idiopathic pulmonary fibrosis. 03/23/2019 Temperature 97.7 pulse 86, blood pressure 129/85. Patient is on BiPAP with a rate 33, FI O2 50% saturation 100% Patient currently using BiPAP and family have made patient a DNR and would like to speak with hospice concerning their options. This was done yesterday in the presence of the fermin ledezma's nurse Patient is laying in bed with his BiPAP machine on. He is talking about being frustrated with his restraints and not being able to get up out of bed Labs are stable. Patient currently has Haldol and Ativan to use as needed Patient is currently on vancomycin and cefepime Also continuing the steroids and Lasix, so far this does not seem to be improving his condition, as he is still severely dependent on the BiPAP machine 03/24/2019 Signs are stable O2 sats are maintaining between 91 and 100% on either BiPAP or occasional nasal cannula. Although nasal cannula needs to be up to 7 L to maintain saturation. Patient is able to sit up on the bed side and carry on a conversation with nasal cannula. Going to repeat a portable chest x-ray today as well as routine labs 03/25/2019 When patient is on BiPAP his saturations are 100%, never when patient switches to nasal cannula even on 6 or 7 L his O2 saturations are in the low 90s. Aspiration rate is approximately 23 Cefepime and vancomycin have been discontinued today and meropenem has been started, due to staph in his blood cultures Patient is also on Lasix 40 mg IV daily that was started 4 days ago Patient is also on Solu-Medrol 40 mg every 12 hours it was started 4 days ago I have decrease his IV fluids to KVO today Patient has not used any Haldol or Ativan for several days now. Patient appears to be obviously oxygen dependent whether by high flow nasal cannula or by BiPAP. Patient qualifies for going home with hospice while waiting for lung transplant. Patient and family are going to decide in the next day or 2 as to his course of action No other changes made other than the above-mentioned 03/26/[address] Liu I am going to change antibiotics to Vancomycin and Levaquin IV. Patient is growing out staph and strep in his blood cultures from 03/18/2019. Patient remains afebrile temperature 97.3, pulse is anywhere from the low 60s to 70 Pressure appears to be slightly better controlled with systolic averaging about 140 and diastolic averaging about 70 O2 sats remain high in the 90s however patient does better on BiPAP than he does on nasal cannula. Rate is approximately 7 or 8 FiO2 is approximately 50% Today is white count is stable at 10,900, has been this way for about 7 or 8 days Electrolytes look stable as well with BUN of 20 creatinine 0.67 potassium 4.3 Chest x-ray 2 days ago shows only fibrotic lung changes without definite superimposed cardiopulmonary process. To me this appears to be resolved pneumonia with just chronic fibrotic changes. However I will continue these antibiotics while he is in the hospital. Hopefully patient will go home with hospice while waiting on the transplant list for lung - Time Time Spent with patient: 25-34 minutes
[2019-03-26] MEDS: VANCOMYCIN HCL 1,500 MG in DEXTROSE 5%-WATER 250 ML IV SCH ×2 (15:36→21:41)
[2019-03-26] MEDS: INSULIN GLARGINE,HUM.REC.ANLOG 1,000 UNIT/10 ML VIAL SUBCUT SCH (21:59)
[2019-03-27] MEDS: PANTOPRAZOLE SODIUM 20 MG TABLET.DR PO SCH (06:32)
[2019-03-27] MEDS: HEPARIN SOD (PORCINE) 5,000 UNIT/ML 1 ML VIAL SUBCUT SCH ×3 (06:32→22:46)
[2019-03-27] MEDS: VANCOMYCIN HCL 1,500 MG in DEXTROSE 5%-WATER 250 ML IV SCH ×3 (06:32→22:36)
[2019-03-27 08:04] LABS: ARTERIAL BLOOD H2CO3 1.15 mmol/L (1.05-1.35); ARTERIAL BLOOD HCO3 25.1 mmol/L (20-24); ARTERIAL BLOOD O2 SATURATION 90.2 % (94-98); ARTERIAL BLOOD PCO2 38.2 mmHg (35-45); ARTERIAL BLOOD PH 7.44 (7.35-7.45); ARTERIAL BLOOD PO2 55.9 mmHg (80-100); ARTERIAL BLOOD TOTAL CO2 26.2 mmol/L (23-27)
[2019-03-27 08:05] LABS: ARTERIAL BLOOD FIO2 7L
[2019-03-27] MEDS: INSULIN LISPRO 100 UNIT/ML 3 ML VIAL SUBCUT SCH ×4 (08:19→22:34)
[2019-03-27] MEDS: LEVOFLOXACIN 750 MG/D5W RTU 750 MG/150 ML RTUPB IV SCH (10:06)
[2019-03-27] MEDS: METHYLPREDNISOLONE INJ 40 MG/1 ML SDV IV SCH ×2 (10:06→22:35)
[2019-03-27] MEDS: LISINOPRIL 10 MG TABLET PO SCH (10:06)
[2019-03-27] MEDS: LORATADINE 10 MG TABLET PO SCH (10:06)
[2019-03-27] MEDS: ASPIRIN 81 MG TABLET, ENT COATED PO SCH (10:06)
[2019-03-27] MEDS: METOPROLOL TARTRATE 25 MG TABLET PO SCH ×2 (10:06→22:34)
[2019-03-27] MEDS: QUETIAPINE FUMARATE 25 MG TABLET PO SCH ×2 (10:06→22:34)
[2019-03-27] MEDS: FUROSEMIDE INJ/PF 40 MG/4 ML SDV IV SCH (10:06)
[2019-03-27] MEDS: TOPIRAMATE 100 MG TABLET PO SCH (10:07)
[2019-03-27] MEDS: FLUTICASONE/VILANTEROL 100-25 MCG/DOSE IH SCH (10:07)
[2019-03-27] MEDS: INSULIN GLARGINE,HUM.REC.ANLOG 1,000 UNIT/10 ML VIAL SUBCUT SCH (22:35)
[2019-03-28] MEDS: PANTOPRAZOLE SODIUM 20 MG TABLET.DR PO SCH (05:53)
[2019-03-28] MEDS: VANCOMYCIN HCL 1,500 MG in DEXTROSE 5%-WATER 250 ML IV SCH (05:53)
[2019-03-28] MEDS: HEPARIN SOD (PORCINE) 5,000 UNIT/ML 1 ML VIAL SUBCUT SCH ×3 (05:53→21:38)
[2019-03-28] MEDS: INSULIN LISPRO 100 UNIT/ML 3 ML VIAL SUBCUT SCH ×4 (09:25→21:38)
[2019-03-28] MEDS: LEVOFLOXACIN 750 MG/D5W RTU 750 MG/150 ML RTUPB IV SCH (09:27)
[2019-03-28] MEDS: FLUTICASONE/VILANTEROL 100-25 MCG/DOSE IH SCH (09:28)
[2019-03-28] MEDS: FUROSEMIDE INJ/PF 40 MG/4 ML SDV IV SCH (09:29)
[2019-03-28] MEDS: TOPIRAMATE 100 MG TABLET PO SCH (09:29)
[2019-03-28] MEDS: METHYLPREDNISOLONE INJ 40 MG/1 ML SDV IV SCH ×2 (09:29→21:38)
[2019-03-28] MEDS: QUETIAPINE FUMARATE 25 MG TABLET PO SCH ×2 (09:30→21:40)
[2019-03-28] MEDS: LISINOPRIL 10 MG TABLET PO SCH (09:30)
[2019-03-28] MEDS: LORATADINE 10 MG TABLET PO SCH (09:30)
[2019-03-28] MEDS: ASPIRIN 81 MG TABLET, ENT COATED PO SCH (09:31)
[2019-03-28] MEDS: METOPROLOL TARTRATE 25 MG TABLET PO SCH ×2 (09:31→21:39)
--- NOTE | 2019-03-28 15:50 | PDOC PROGRESS REPORT ---
Subjective Progress Note for:: 03/27/19 Reason For Visit: PNEUOMONIA, PULM FIBROSIS 03/27/2019 Stage pulmonary fibrosis, resolving pneumonia Physical Exam Vital Signs: Temp Pulse Resp BP Pulse Ox 97.4 F 70 17 108/64 100 03/28/19 11:30 03/28/19 11:30 03/28/19 11:30 03/28/19 11:30 03/28/19 11:30 Pulse Oximeter Continuous Start: 03/18/19 17:07 Freq: RTQ4 Status: Complete Protocol: Document 03/26/19 17:05 [facility] (Rec: 03/26/19 17:05 [facility] [id number]) Pulse Oximetry Assessment Equipment Usage Equipment Discontinued Continuous SpO2 Machine # 9 Intake & Output 03/27/19 03/28/19 03/29/19 06:59 06:59 06:59 Intake Total 2246 2410 920 Output Total 1480 800 600 Balance 766 1610 320 Weight 88.5 kg 88.2 kg General appearance: PRESENT: mild distress Respiratory exam: PRESENT: decreased breath sounds Cardiovascular exam: PRESENT: RRR. ABSENT: diastolic murmur, rubs, systolic murmur Neurological exam: PRESENT: alert, awake, oriented to person, oriented to place, oriented to time, oriented to situation, CN II-XII grossly intact. ABSENT: motor sensory deficit Psychiatric exam: PRESENT: agitated, anxious Results Laboratory Results: 03/26/19 08:19 03/27/19 21:18 03/27/19 21:18 Creatinine 0.85 Est GFR ( Amer) > 60 03/19/19 05:10 NT-Pro-B Natriuret Pep 3880 H Impressions: Chest CT 03/18/19 00:00 IMPRESSION: Interval development of ground-glass opacities superimposed upon peripheral honeycomb appearance may represent progression in pulmonary fibrosis/UIP. Given concomitant appearance of increase in mediastinal lymp hadenopathy and pulmonary artery hypertension, differential considerations include developing CHF exacerbation, atypical infection, or less likely, neoplasm. Chest X-Ray 03/24/19 00:00 IMPRESSION: Fibrotic lung changes without definite superimposed cardiopulmonary process. Assessment and Plan - Diagnosis (1) Acute and chronic respiratory failure with hypoxia Is this a current diagnosis for this admission?: Yes (2) Anxiety Is this a current diagnosis for this admission?: Yes (3) Community acquired bacterial pneumonia Is this a current diagnosis for this admission?: Yes (5) Idiopathic pulmonary fibrosis Is this a current diagnosis for this admission?: Yes - Plan Summary Summary: 03/22/2019 Temp 97 3, blood pressure 109/63, patient on BiPAP 50% O2, rate of 8 Patient currently on cefepime and vancomycin According to the nurses the Lasix and steroids that were added are not helping Lung transplant team at [facility], Dr. Crews has been notified and spoken with by previous physician. It is not a candidate for transfer at this time Echocardiogram results are pending White count initially was 18,900 is now down to 9.8. We will continue cefepime and for his pneumonia Renal function appears stable BUN of 11 creatinine 0.76, glucose running around 200 Patient still a full code after multiple discussions with the family and the patient. He is in the room and I will talk to her again today concerning CODE S TATUS and possible hospice Patient does have right-sided heart failure secondary to his idiopathic p ulmonary fibrosis. 03/23/2019 Temperature 97.7 pulse 86, blood pressure 129/85. Patient is on BiPAP with a rate 33, FI O2 50% saturation 100% Patient currently using BiPAP and family have made patient a DNR and would like to speak with hospice concerning their options. This was done yesterday in the presence of the patient's nurse Patient is laying in bed with his BiPAP machine on. He is talking about being frustrated with his restraints and not being able to get up out of bed Labs are stable. Patient currently has Haldol and Ativan to use as needed Patient is currently on vancomycin and cefepime Also continuing the steroids and Lasix, so far this does not seem to be improving his condition, as he is still severely dependent on the BiPAP machine 03/24/2019 Signs are stable O2 sats are maintaining between 91 and 100% on either BiPAP or occasional nasal cannula. Although nasal cannula needs to be up to 7 L to maintain saturation. Patient is able to sit up on the bed side and carry on a conversation with nasal cannula. Going to repeat a portable chest x-ray today as well as routine labs 03/25/2019 When patient is on BiPAP his saturations are 100%, never when patient switches to nasal cannula even on 6 or 7 L his O2 saturations are in the low 90s. Aspiration rate is approximately 23 Cefepime and vancomycin have been discontinued today and meropenem has been started, due to staph in his blood cultures Patient is also on Lasix 40 mg IV daily that was started 4 days ago Patient is also on Solu-Medrol 40 mg every 12 hours it was started 4 days ago I have decrease his IV fluids to KVO today Patient has not used any Haldol or Ativan for several days now. Patient appears to be obviously oxygen dependent whether by high flow nasal cannula or by BiPAP. Patient qualifies for going home with hospice while waiting for lung transplant. Patient and family are going to decide in the next day or 2 as to his course of action No other changes made other than the above-mentioned 03/26/[address] Liu I am going to change antibiotics to Vancomycin and Levaquin IV. Patient is growing out staph and strep in his blood cultures from 03/18/2019. Patient remains afebrile temperature 97.3, pulse is anywhere from the low 60s to 70 Pressure appears to be slightly better controlled with systolic averaging about 140 and diastolic averaging about 70 O2 sats remain high in the 90s however patient does better on BiPAP than he does on nasal cannula. Rate is approximately 7 or 8 FiO2 is approximately 50% Today is white count is stable at 10,900, has been this way for about 7 or 8 days Electrolytes look stable as well with BUN of 20 creatinine 0.67 potassium 4.3 Chest x-ray 2 days ago shows only fibrotic lung changes without definite superimposed cardiopulmonary process. To me this appears to be resolved pneumonia with just chronic fibrotic changes. However I will continue these antibiotics while he is in the hospital. Hopefully patient will go home with hospice while waiting on the transplant list for lung I have also increased his glargine insulin to 40 units subcu nightly. He was on 30 units, while in the hospital, however at home he was on 50 units. 03/27/2019 The exception of patient's oxygen saturation and high flow of oxygen by nasal cannula, patient's vital signs are stable Going to check patient's labs again tomorrow Patient has not required any Haldol or Ativan however he does appear to be confused at times probably secondary to chronic hypoxia I am going to talk to family tomorrow about discharging home on hospice however I would like to discuss with respiratory therapy is status, what type of treatment he will need from respiratory concerning transitioning to home. He probably will not need IV antibiotics or even p.o. antibiotics when discharged Patient has been on steroids as well as Lasix for his chronic pulmonary fibrosis, the suggestion of his transplant team at [facility]. Should go home on these medications. - Time Time Spent with patient: 25-34 minutes
--- NOTE | 2019-03-28 15:59 | PDOC PROGRESS REPORT ---
Subjective Progress Note for:: 03/28/19 Reason For Visit: PNEUOMONIA, PULM FIBROSIS 03/28/2019 End-stage pulmonary fibrosis and resolving pneumonia Physical Exam Vital Signs: Temp Pulse Resp BP Pulse Ox 97.4 F 70 17 108/64 100 03/28/19 11:30 03/28/19 11:30 03/28/19 11:30 03/28/19 11:30 03/28/19 11:30 Pulse Oximeter Continuous Start: 03/18/19 17:07 Freq: RTQ4 Status: Complete Protocol: Document 03/26/19 17:05 [facility] (Rec: 03/26/19 17:05 [facility] [id number]) Pulse Oximetry Assessment Equipment Usage Equipment Discontinued Continuous SpO2 Machine # 9 Intake & Output 03/27/19 03/28/19 03/29/19 06:59 06:59 06:59 Intake Total 2246 2410 920 Output Total 1480 800 600 Balance 766 1610 320 Weight 88.5 kg 88.2 kg General appearance: PRESENT: no acute distress, other - Sitting up in bed asking to go home Respiratory exam: PRESENT: clear to auscultation matthew. ABSENT: rales, rhonchi, wheezes Cardiovascular exam: PRESENT: RRR. ABSENT: diastolic murmur, rubs, systolic murmur Neurological exam: PRESENT: alert, awake, oriented to person, oriented to place Psychiatric exam: PRESENT: agitated, anxious, unusual affect Results Laboratory Results: 03/26/19 08:19 03/27/19 21:18 03/27/19 21:18 Creatinine 0.85 Est GFR ( Amer) > 60 03/19/19 05:10 NT-Pro-B Natriuret Pep 3880 H Impressions: Chest CT 03/18/19 00:00 IMPRESSION: Interval development of ground-glass opacities superimposed upon peripheral honeycomb appearance may represent progression in pulmonary fibrosis/UIP. Given concomitant appearance of increase in mediastinal lymphadenopathy and pulmonary artery hypertension, differential considerations include developing CHF exacerbation, atypical infection, or less likely, neoplasm. Chest X-Ray 03/24/19 00:00 IMPRESSION: Fibrotic lung changes without definite superimposed cardiopulmonary process. Assessment and Plan - Diagnosis (1) Acute and chronic respiratory failure with hypoxia Is this a current diagnosis for this admission?: Yes (2) Anxiety Is this a current diagnosis for this admission?: Yes (3) Community acquired bacterial pneumonia Is this a current diagnosis for this admission?: Yes (5) Idiopathic pulmonary fibrosis Is this a current diagnosis for this admission?: Yes - Plan Summary Summary: 03/22/2019 Temp 97 3, blood pressure 109/63, patient on BiPAP 50% O2, rate of 8 Patient currently on cefepime and vancomycin According to the nurses the Lasix and steroids that were added are not helping Lung transplant team at [facility], Dr. Crews has been notified and spoken with by previous physician. It is not a candidate for transfer at this time Echocardiogram results are pending White count initially was 18,900 is now down to 9.8. We will continue cefepime and for his pneumonia Renal function appears stable BUN of 11 creatinine 0.76, glucose running around 200 Patient still a full code after multiple discussions with the family and the patient. He is in the room and I will talk to her again today concerning CODE STATUS and possible hospice Patient does have right-sided heart failure secondary to his idiopathic pulmonary fibrosis. 03/23/2019 Temperature 97.7 pulse 86, blood pressure 129/85. Patient is on BiPAP with a rate 33, FI O2 50% saturation 100% Patient currently using BiPAP and family have made patient a DNR and would like to speak with hospice concerning their options. This was done yesterday in the presence of the patient's nurse Patient is laying in bed with his BiPAP machine on. He is talking about being frustrated with his restraints and not being able to get up out of bed Labs are stable. Patient currently has Haldol and Ativan to use as needed Patient is currently on vancomycin and cefepime Also continuing the steroids and Lasix, so far this does not seem to be impr oving his condition, as he is still severely dependent on the BiPAP machine 03/24/2019 Signs are stable O2 sats are maintaining between 91 and 100% on either BiPAP or occasional nasal cannula. Although nasal cannula needs to be up to 7 L to maintain saturation. Patient is able to sit up on the bed side and carry on a conversation with nasal cannula. Going to repeat a portable chest x-ray today as well as routine labs 03/25/2019 When patient is on BiPAP his saturations are 100%, never when patient switches to nasal cannula even on 6 or 7 L his O2 saturations are in the low 90s. Aspiration rate is approximately 23 Cefepime and vancomycin have been discontinued today and meropenem has been started, due to staph in his blood cultures Patient is also on Lasix 40 mg IV daily that was started 4 days ago Patient is also on Solu-Medrol 40 mg every 12 hours it was started 4 days ago I have decrease his IV fluids to KVO today Patient has not used any Haldol or Ativan for several days now. Patient appears to be obviously oxygen dependent whether by high flow nasal cannula or by BiPAP. Patient qualifies for going home with hospice while waiting for lung transplant. Patient and family are going to decide in the next day or 2 as to his course of action No other changes made other than the above-mentioned 03/26/[address] Liu I am going to change antibiotics to Vancomycin and Levaquin IV. Patient is growing out staph and strep in his blood cultures from 03/18/2019. Patient remains afebrile temperature 97.3, pulse is anywhere from the low 60s to 70 Pressure appears to be slightly better controlled with systolic averaging about 140 and diastolic averaging about 70 O2 sats remain high in the 90s however patient does better on BiPAP than he does on nasal cannula. Rate is approximately 7 or 8 FiO2 is approximately 50% Today is white count is stable at 10,900, has been this way for about 7 or 8 days Electrolytes look stable as well with BUN of 20 creatinine 0.67 potassium 4.3 Chest x-ray 2 days ago shows only fibrotic lung changes without definite superimposed cardiopulmonary process. To me this appears to be resolved pneumonia with just chronic fibrotic changes. However I will continue these antibiotics while he is in the hospital. Hopefully patient will go home with hospice while waiting on the transplant list for lung I have also increased his glargine insulin to 40 units subcu nightly. He was on 30 units, while in the hospital, however at home he was on 50 units. 03/27/2019 The exception of patient's oxygen saturation and high flow of oxygen by nasal cannula, patient's vital signs are stable Going to check patient's labs again tomorrow Patient has not required any Haldol or Ativan however he does appear to be confused at times probably secondary to chronic hypoxia I am going to talk to family tomorrow about discharging home on hospice however I would like to discuss with respiratory therapy is status, what type of treat ment he will need from respiratory concerning transitioning to home. He probably will not need IV antibiotics or even p.o. antibiotics when discharged Patient has been on steroids as well as Lasix for his chronic pulmonary fibrosis, the suggestion of his transplant team at [place]. Should go home on these medications. 03/28/2019 Patient's oxygen saturations are anywhere from 89 to 99% However he still requiring high flow oxygen 7 L nasal cannula 52% FiO2 I am going to talk to respiratory today and try to figure out why he is requiring this high flow and concentration to see if we can wean him down It may be that his lungs are so fibrotic that it is going to be impossible to do so. Charge planning is going to finalize his hospice referral tomorrow after respiratory gives us there recommendations for home O2 Patient started the Solu-Medrol 40 mg every 12 hours on the Patient was switched over to the Levaquin on the Patient was put on vancomycin also on the Patient was placed on Lasix 40 mg IV daily on the Patient does not need to go home on IV antibiotics but I would continue some form of steroids as well as the Lasix - Time Time Spent with patient: 25-34 minutes
[2019-03-28] MEDS: VANCOMYCIN HCL 1,000 MG in DEXTROSE 5%-WATER 250 ML IV SCH (21:37)
[2019-03-28] MEDS: INSULIN GLARGINE,HUM.REC.ANLOG 1,000 UNIT/10 ML VIAL SUBCUT SCH (21:39)
[2019-03-29] MEDS: HEPARIN SOD (PORCINE) 5,000 UNIT/ML 1 ML VIAL SUBCUT SCH ×2 (05:18→13:58)
[2019-03-29] MEDS: VANCOMYCIN HCL 1,000 MG in DEXTROSE 5%-WATER 250 ML IV SCH ×2 (05:18→14:03)
[2019-03-29] MEDS: PANTOPRAZOLE SODIUM 20 MG TABLET.DR PO SCH (05:18)
[2019-03-29] MEDS: INSULIN LISPRO 100 UNIT/ML 3 ML VIAL SUBCUT SCH ×3 (08:14→15:42)
[2019-03-29] MEDS: METHYLPREDNISOLONE INJ 40 MG/1 ML SDV IV SCH (09:25)
[2019-03-29] MEDS: FUROSEMIDE INJ/PF 40 MG/4 ML SDV IV SCH (09:25)
[2019-03-29] MEDS: QUETIAPINE FUMARATE 25 MG TABLET PO SCH (09:26)
[2019-03-29] MEDS: LISINOPRIL 10 MG TABLET PO SCH (09:27)
[2019-03-29] MEDS: ASPIRIN 81 MG TABLET, ENT COATED PO SCH (09:27)
[2019-03-29] MEDS: LORATADINE 10 MG TABLET PO SCH (09:27)
[2019-03-29] MEDS: METOPROLOL TARTRATE 25 MG TABLET PO SCH (09:27)
[2019-03-29] MEDS: LEVOFLOXACIN 750 MG/D5W RTU 750 MG/150 ML RTUPB IV SCH (09:30)
[2019-03-29] MEDS: FLUTICASONE/VILANTEROL 100-25 MCG/DOSE IH SCH (09:31)
[2019-03-29] MEDS: TOPIRAMATE 100 MG TABLET PO SCH (09:31)
--- NOTE | 2019-03-29 15:15 | PDOC DISCHARGE SUMMARY ---
Impression - Admit/DC Date/PCP Admission Date/Primary Care Provider: 03/18/19 17:19 MASSIEL BRIAN [employer] Discharge Date: 03/29/19 - Discharge Diagnosis (1) Acute and chronic respiratory failure with hypoxia Is this a current diagnosis for this admission?: Yes (2) Pneumonia Is this a current diagnosis for this admission?: Yes (3) Idiopathic pulmonary fibrosis Is this a current diagnosis for this admission?: Yes (4) Moderate to severe pulmonary hypertension Is this a current diagnosis for this admission?: Yes - Assessment Summary: 03/22/2019 Temp 97 3, blood pressure 109/63, patient on BiPAP 50% O2, rate of 8 Patient currently on cefepime and vancomycin According to the nurses the Lasix and steroids that were added are not helping Lung transplant team at [facility], Dr. Crews has been notified and spoken with by previous physician. It is not a candidate for transfer at this time Echocardiogram results are pending White count initially was 18,900 is now down to 9.8. We will continue cefepime and for his pneumonia Renal function appears stable BUN of 11 creatinine 0.76, glucose running around 200 Patient still a full code after multiple discussions with the family and the patient. He is in the room and I will talk to her again today concerning CODE STATUS and possible hospice Patient does have right-sided heart failure secondary to his idiopathic pulmonary fibrosis. 03/23/2019 Temperature 97.7 pulse 86, blood pressure 129/85. Patient is on BiPAP with a rate 33, FI O2 50% saturation 100% Patient currently using BiPAP and family have made patient a DNR and would like to speak with hospice concerning their options. This was done yesterday in the presence of the patient's nurse Patient is laying in bed with his BiPAP machine on. He is talking about being frustrated with his restraints and not being able to get up out of bed Labs are stable. Patient currently has Haldol and Ativan to use as needed Patient is currently on vancomycin and cefepime Also continuing the steroids and Lasix, so far this does not seem to be improving his condition, as he is still severely dependent on the BiPAP machine 03/24/2019 Signs are stable O2 sats are maintaining between 91 and 100% on either BiPAP or occasional nasal cannula. Although nasal cannula needs to be up to 7 L to maintain saturation. Patient is able to sit up on the bed side and carry on a conversation with nasal cannula. Going to repeat a portable chest x-ray today as well as routine labs 03/25/2019 When patient is on BiPAP his saturations are 100%, never when patient switches to nasal cannula even on 6 or 7 L his O2 saturations are in the low 90s. Asp iration rate is approximately 23 Cefepime and vancomycin have been discontinued today and meropenem has been started, due to staph in his blood cultures Patient is also on Lasix 40 mg IV daily that was started 4 days ago Patient is also on Solu-Medrol 40 mg every 12 hours it was started 4 days ago I have decrease his IV fluids to KVO today Patient has not used any Haldol or Ativan for several days now. Patient appears to be obviously oxygen dependent whether by high flow nasal cannula or by BiPAP. Patient qualifies for going home with hospice while waiting for lung transplant. Patient and family are going to decide in the next day or 2 as to his course of action No other changes made other than the above-mentioned 03/26/[address] Liu I am going to change antibiotics to Vancomycin and Levaquin IV. Patient is growing out staph and strep in his blood cultures from 03/18/2019. Patient remains afebrile temperature 97.3, pulse is anywhere from the low 60s to 70 Pressure appears to be slightly better controlled with systolic averaging about 140 and diastolic averaging about 70 O2 sats remain high in the 90s however patient does better on BiPAP than he does on nasal cannula. Rate is approximately 7 or 8 FiO2 is approximately 50% Today is white count is stable at 10,900, has been this way for about 7 or 8 days Electrolytes look stable as well with BUN of 20 creatinine 0.67 potassium 4.3 Chest x-ray 2 days ago shows only fibrotic lung changes without definite superimposed cardiopulmonary process. To me this appears to be resolved pneumonia with just chronic fibrotic changes. However I will continue these antibiotics while he is in the hospital. Hopefully patient will go home with hospice while waiting on the transplant list for lung I have also increased his glargine insulin to 40 units subcu nightly. He was on 30 units, while in the hospital, however at home he was on 50 units. 03/27/2019 The exception of patient's oxygen saturation and high flow of oxygen by nasal cannula, patient's vital signs are stable Going to check patient's labs again tomorrow Patient has not required any Haldol or Ativan however he does appear to be confused at times probably secondary to chronic hypoxia I am going to talk to family tomorrow about discharging home on hospice however I would like to discuss with respiratory therapy is status, what type of treatment he will need from respiratory concerning transitioning to home. He probably will not need IV antibiotics or even p.o. antibiotics when discharged Patient has been on steroids as well as Lasix for his chronic pulmonary fibrosis, the suggestion of his transplant team at [place]. Should go home on these medications. 03/28/2019 Patient's oxygen saturations are anywhere from 89 to 99% However he still requiring high flow oxygen 7 L nasal cannula 52% FiO2 I am going to talk to respiratory today and try to figure out why he is requiring this high flow and concentration to see if we can wean him down It may be that his lungs are so fibrotic that it is going to be impossible to do so. Charge planning is going to finalize his hospice referral tomorrow after respiratory gives us there recommendations for home O2 Patient started the Solu-Medrol 40 mg every 12 hours on the Patient was switched over to the Levaquin on the Patient was put on vancomycin also on the Patient was placed on Lasix 40 mg IV daily on the Patient does not need to go home on IV antibiotics but I would continue some form of steroids as well as the Lasix - Additional Information Resuscitation Status: Do Not Resuscitate Referrals: AUSTEN LAND NP [NO LOCAL MD] - 04/05/19 1:00 pm Prescriptions: Furosemide [Lasix 20 mg Tablet] 20 mg PO QAM #30 tablet Levofloxacin [Levaquin 500 mg Tablet] 500 mg PO DAILY 4 Days #4 tablet Prednisone 10 mg PO BID 7 Days #14 tablet Pantoprazole Sodium [Protonix [address] Tablet] 20 mg PO Q6AM #30 tablet.dr Sodium Chloride [Saline [place]] 60 ml MC Q6HP PRN 30 Days #2 spray PRN Reason: Home Medications: Lovastatin [Mevacor] 20 mg PO DAILY 06/12/17 Amlodipine Besylate [Norvasc 5 mg Tablet] 5 mg PO DAILY #30 tablet 06/16/17 Metoprolol Tartrate [Lopressor 25 mg Tablet] 12.5 mg PO Q12 #60 tablet 06/16/17 Albuterol Sulfate [Proair HFA Inhalation Aerosol 8.5 gm MDI] 2 puff IH Q4HP PRN 03/18/19 Aspirin [Ecotrin 81 mg EC Tablet] 81 mg PO DAILY 03/18/19 Budesonide/Formoterol Fumarate [Symbicort HFA 160-4.5 mcg Inhaler 6 gm] 2 puff IH Q12 03/18/19 Exenatide Microspheres [Bydureon Pen] 2 mg SUBCUT TH@1000 03/18/19 Hydroxyzine HCl [Atarax 50 mg Tablet] 50 mg PO BIDP PRN 03/18/19 Insulin Glargine,Hum.rec.anlog [Lantus Insulin 100 Unit/mL Insulin Pen] 50 units SUBCUT QHS 03/18/19 Lisinopril 20 mg PO DAILY 03/18/19 Loratadine [Claritin 10 mg Tablet] 10 mg PO DAILY 03/18/19 Naproxen 500 mg PO Q12 03/18/19 Nortriptyline HCl [Pamelor 25 mg Capsule] 75 mg PO QHS 03/18/19 Omeprazole 20 mg PO DAILY 03/18/19 Tiotropium [place] [Spiriva Handihaler 5 Cap/Kit (18 Mcg/Cap)] 1 cap IH DAILY 03/18/19 Topiramate [Topamax 100 mg Tablet] 100 mg PO DAILY 03/18/19 Furosemide [Lasix 20 mg Tablet] 20 mg PO QAM #30 tablet 03/29/19 Levofloxacin [Levaquin 500 mg Tablet] 500 mg PO DAILY 4 Days #4 tablet 03/29/19 Pantoprazole Sodium [Protonix [address] Tablet] 20 mg PO Q6AM #30 tablet.dr 03/29/19 Prednisone 10 mg PO BID 7 Days #14 tablet 03/29/19 Sodium Chloride [Saline [place]] 60 ml MC Q6HP PRN 30 Days #2 spray 03/29/19 History of Present Illiness History of Present Illness: Admitting hospitalist's H&P: KIARRA DELONG SR is a 63 year old male with recently diagnosed idiopathic pulmonary fibrosis [05/2018], DM 2, hypertension, COPD, who presents to the hospital with complaints of progressive shortness of breath over the past 2 to 3 months. 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 Patient endorses increased sputum production and cough. Patient states he does not use oxygen at home as he has never been hypoxic to the point of qualify for oxygen. Patient states that he tried nintedanib for 3 months earlier this year but with no success and has been connected with [facility] for evaluation for lung transplant. Patient also endorses lightheadedness when standing. This has become more frequently recently. Hospital Course Hospital Course: This is a 63-year-old male with a known idiopathic pulmonary fibrosis who was admitted with increasing shortness of breath. Patient was diagnosed to have pneumonia on top of his IPF. He was initially requiring high supplemental O2 and was initially on alternating BiPAP and high flow. Patient was on nindatinib before but did not get any improvement. He was initially following up with [facility] pulmonology. He was started on IV antibiotics and IV steroids. [facility] pulmonology was also consulted. He did show some improvement but did not return to his baseline. Options of pursuing lung transplantation versus hospice was discussed in length with patient. We rediscussed the options again today and he has decided to pursue hospice and has expressed that he does not think he is interested in pursuing lung transplantation at [facility]. He prefers to be discharged today on home hospice. Patient will be discharged on home O2. He will be discharged on a short course of steroids and he will continue 4 more days of levofloxacin. Physical Exam Vital Signs: Temp Pulse Resp BP Pulse Ox 97.7 F 72 17 104/85 95 03/29/19 11:36 03/29/19 11:36 03/29/19 11:36 03/29/19 11:36 03/29/19 11:36 Pulse Oximeter Continuous Start: 03/18/19 17:07 Freq: RTQ4 Status: Complete Protocol: Document 03/26/19 17:05 [facility] (Rec: 03/26/19 17:05 [facility] [id number]) Pulse Oximetry Assessment Equipment Usage Equipment Discontinued Continuous SpO2 Machine # 9 Intake & Output 12/30/19 12/31/19 01/01/20 06:59 06:59 06:59 Intake Total 2410 1690 850 Output Total 800 1225 800 Balance 1610 465 50 Weight 194 lb 7.163 oz 190 lb 11.198 oz General appearance: PRESENT: no acute distress, well-developed, well-nourished Head exam: PRESENT: atraumatic, normocephalic Eye exam: PRESENT: conjunctiva pink, EOMI, PERRLA. ABSENT: scleral icterus Ear exam: PRESENT: normal external ear exam Mouth exam: PRESENT: moist, tongue midline Neck exam: ABSENT: carotid bruit, JVD, lymphadenopathy, thyromegaly Respiratory exam: PRESENT: rales, rhonchi. ABSENT: wheezes Cardiovascular exam: PRESENT: RRR. ABSENT: diastolic murmur, rubs, systolic murmur Pulses: PRESENT: normal dorsalis pedis pul GI/Abdominal exam: PRESENT: normal bowel sounds, soft. ABSENT: distended, guard ing, mass, organolmegaly, rebound, tenderness Rectal exam: PRESENT: deferred Extremities exam: PRESENT: full ROM. ABSENT: calf tenderness, clubbing, pedal edema Neurological exam: PRESENT: alert, awake, oriented to person, oriented to place, oriented to time, oriented to situation, CN II-XII grossly intact. ABSENT: motor sensory deficit Results Laboratory Results: WBC 10.9 10^3/uL (4.0-10.5) H 03/26/19 08:19 RBC 4.96 10^6/uL (4.35-5.55) 03/26/19 08:19 Hgb 15.1 g/dL (13.5-17.0) 03/26/19 08:19 Hct 44.0 % (37.9-51.0) 03/26/19 08:19 MCV 89 fl (80-97) 03/26/19 08:19 MCH 30.5 pg (27.0-33.4) 03/26/19 08:19 MCHC 34.3 g/dL (32.0-36.0) 03/26/19 08:19 RDW 12.8 % (11.5-14.0) 03/26/19 08:19 Plt Count 431 10^3/uL (150-450) 03/26/19 08:19 Lymph % (Auto) Not Reportable 03/26/19 08:19 [place] % (Auto) Not Reportable 03/26/19 08:19 Eos % (Auto) Not Reportable 03/26/19 08:19 Baso % (Auto) Not Reportable 03/26/19 08:19 Absolute Neuts (auto) Not Reportable 03/26/19 08:19 Absolute Lymphs (auto) Not Reportable 03/26/19 08:19 Absolute Monos (auto) Not Reportable 03/26/19 08:19 Absolute Eos (auto) Not Reportable 03/26/19 08:19 Absolute Basos (auto) Not Reportable 03/26/19 08:19 Total Counted 100 03/26/19 08:19 Seg Neutrophils % Not Reportable 03/26/19 08:19 Seg Neuts % (Manual) 76 % (42-78) 03/26/19 08:19 Lymphocytes % (Manual) 21 % (13-45) 03/26/19 08:19 Monocytes % (Manual) 2 % (3-13) L 03/26/19 08:19 Eosinophils % (Manual) 1 % (0-6) 03/26/19 08:19 Basophils % (Manual) 0 % (0-2) 03/26/19 08:19 Abs Neuts (Manual) 8.3 10^3/uL (1.7-8.2) H 03/26/19 08:19 Abs Lymphs (Manual) 2.3 10^3/uL (0.5-4.7) 03/26/19 08:19 Abs Monocytes (Manual) 0.2 10^3/uL (0.1-1.4) 03/26/19 08:19 Absolute Eos (Manual) 0.1 10^3/uL (0.0-0.6) 03/26/19 08:19 Abs Basophils (Manual) 0.0 10^3/uL (0.0-0.2) 03/26/19 08:19 Toxic Granulation SLIGHT 03/26/19 08:19 Toxic Vacuolation PRESENT 03/26/19 08:19 Platelet Comment ADEQUATE 03/26/19 08:19 Carbonic Acid 1.15 mmol/L (1.05-1.35) 03/27/19 07:50 HCO3/H2CO3 Ratio 21:1 03/27/19 07:50 ABG pH 7.44 (7.35-7.45) 03/27/19 07:50 ABG pCO2 38.2 mmHg (35-45) 03/27/19 07:50 ABG pO2 55.9 mmHg (80-100) L 03/27/19 07:50 ABG HCO3 25.1 mmol/L (20-24) H 03/27/19 07:50 ABG Total CO2 26.2 mmol/L (23-27) 03/27/19 07:50 ABG O2 Saturation 90.2 % (94-98) L 03/27/19 07:50 ABG Base Excess 1.0 mmol/L 03/27/19 07:50 FiO2 7L 03/27/19 07:50 Sodium 141.6 mmol/L (137-145) 03/26/19 08:19 Potassium 4.3 mmol/L (3.6-5.0) 03/26/19 08:19 Chloride 103 mmol/L (98-107) 03/26/19 08:19 Carbon Dioxide 29 mmol/L (22-30) 03/26/19 08:19 Anion Gap 10 (5-19) 03/26/19 08:19 BUN 20 mg/dL (7-20) 03/26/19 08:19 Creatinine 0.85 mg/dL (0.52-1.25) 03/27/19 21:18 Est GFR ( Amer) > 60 (>60) 03/27/19 21:18 Est GFR (MDRD) Non-Af > 60 (>60) 03/27/19 21:18 Glucose 269 mg/dL (75-110) H 03/26/19 08:19 POC Glucose 197 mg/dL (70-110) H 03/29/19 11:33 Lactic Acid (Sepsis) 1.6 mmol/L (0.7-2.1) 03/18/19 17:55 Calcium 9.3 mg/dL (8.4-10.2) 03/26/19 08:19 Total Bilirubin 0.7 mg/dL (0.2-1.3) 03/26/19 08:19 Direct Bilirubin 0.4 mg/dL (0.0-0.4) 03/26/19 08:19 Neonat Total Bilirubin Not Reportable 03/26/19 08:19 Neonat Direct Bilirubin Not Reportable 03/26/19 08:19 Neonat Indirect Bili Not Reportable 03/26/19 08:19 AST 37 U/L (17-59) 03/26/19 08:19 ALT 28 U/L (<50) 03/26/19 08:19 Alkaline Phosphatase 89 U/L (38-126) 03/26/19 08:19 NT-Pro-B Natriuret Pep 3880 pg/mL (<125) H 03/19/19 05:10 Total Protein 7.8 g/dL (6.3-8.2) 03/26/19 08:19 Albumin 3.9 g/dL (3.5-5.0) 03/26/19 08:19 Time Trough Drawn 211703/27/19 21:18 Vancomycin Trough 23.0 ug/mL (5.0-20.0) H 03/27/19 21:18 03/19/19 05:10 NT-Pro-B Natriuret Pep 3880 H Impressions: Chest CT 03/18/19 00:00 IMPRESSION: Interval development of ground-glass opacities superimposed upon peripheral honeycomb appearance may represent progression in pulmonary fibrosis/UIP. Given concomitant appearance of increase in mediastinal lymphadenopathy and pulmonary artery hypertension, differential considerations include developing CHF exacerbation, atypical infection, or less likely, neoplasm. Chest X-Ray 03/18/19 12:33 IMPRESSION: Findings of fibrotic interstitial lung disease with a suspected superimposed left lower lobe consolidation. Chest X-Ray 03/21/19 00:00 IMPRESSION: Dense reticular interstitial opacities throughout both lungs worr isome for advanced pulmonary fibrosis. Overall pattern is similar compared to March 2018 Chest X-Ray 03/24/19 00:00 IMPRESSION: Fibrotic lung changes without definite superimposed cardiopulmonary process. Stroke Is this a Stroke Patient?: No Acute Heart Failure - Is this a Heart Failure Patient?: No
[2019-03-29 15:44] VITALS: BP 116/71
== END 2019-03-29 16:20 | disposition home or self-care (01) | DRG 189 ==
LOC: ER 12:26 → EH 17:19 → 3S 23:11 → 3W 03-22 11:58
PROVIDERS: ADMIT Internal Medicine; ATTEND Internal Medicine
PROC: 5A09557 Assistance with Respiratory Ventilation, Greater than 96 Consecutive Hours, Continuous Positive Airway Pressure (ICD-10-PCS; principal; 2019-03-18)
DX: J96.21 Acute and chronic respiratory failure with hypoxia (principal); J15.9 Unspecified bacterial pneumonia; J44.0 Chronic obstructive pulmonary disease with (acute) lower respiratory infection; N17.9 Acute kidney failure, unspecified; I27.23 Pulmonary hypertension due to lung diseases and hypoxia; I27.81 Cor pulmonale (chronic); J84.112 Idiopathic pulmonary fibrosis; I50.814 Right heart failure due to left heart failure; Z66 Do not resuscitate; E11.9 Type 2 diabetes mellitus without complications; I11.0 Hypertensive heart disease with heart failure; F41.9 Anxiety disorder, unspecified; Z78.1 Physical restraint status; Z79.4 Long term (current) use of insulin; Z79.899 Other long term (current) drug therapy; Z87.891 Personal history of nicotine dependence; Z88.6 Allergy status to analgesic agent
CPT/HCPCS: 36415; 71045; 71250; 80048; 80053; 80202; 82565; 82803; 82962; 83605; 83880; 85025; 87040; 87077; 87150; 87186; 93005; 93010; 93306; 94640; 94660; 94762; 96374; 99285; J0456; J0692; J0696; J1630; J1644; J1815; J1940; J1956; J2060; J2185; J2270; J2920; J3360; J3370; J3490; J7030; J7060; J7620